=== PATIENT | female | born 1955 | race Caucasian/White ===

== ENCOUNTER 2020-12-30 07:14 | Day surgery (SDC) | payer OTHER ==
[2020-12-30] MEDS ORDERED: Ringers Lactate 1,000 ML IV ONE (07:35)
[2020-12-30] MEDS ORDERED: LIDOCAINE 1% MPF 30 ML VIAL ONE (07:52)
[2020-12-30] MEDS ORDERED: LIDOCAINE VISCOUS 2% SOLN 15 ML UDC ONE (07:52)
[2020-12-30] MEDS ORDERED: LIDOCAINE 1% MPF 5 ML VIAL ONE (08:11)
[2020-12-30] MEDS ORDERED: propofoL 200 MG/20 ML VIAL IV ONE ×2 (08:11→09:04)
[2020-12-30] MEDS ORDERED: NS 0.9% VIAL 0 ML ONE (08:11)
[2020-12-30] MEDS ORDERED: Phenylephrine HCl 10 MG/ML 1 ML VIAL ONE ×2 (08:11→12:30)
[2020-12-30] MEDS ORDERED: FENTANYL CITR 100 MCG/2 ML ONE (08:31)
--- NOTE | 2020-12-30 08:47 | P.OP ---
Date of Service: 12/30/20 (Bronchoscopy with a right upper lobe transbronchial biopsies BAL and wire brushing) Findings and Operative Technique Patient is 65 years of age admitted with right upper lobe apical mass PET positive as a reason for bronchoscopy Narrative report after obtaining informed consent from the patient she premedicated by anesthesia Finding normal vocal cords normal trachea normal right right and left-sided bronchial anatomy slight thickening of the right upper lobe superior segmental bronchus no visible lesions Multiple procedures were performed as above patient tolerated the procedure very well did not experience any hemodynamic instability or significant hemoptysis chest x-ray has been ordered
--- NOTE | 2020-12-30 09:19 | RAD REPORT ---
EXAM DESCRIPTION: RAD - FLUORO-GUIDE FOR BRONCH UPT1HR - 12/30/2020 8:47 am FINDINGS: Three portable C-arm views were submitted from a fluoroscopic assisted bronchoscopy. Fluoro time was 287.9 seconds
--- NOTE | 2020-12-30 10:08 | RAD REPORT ---
EXAM DESCRIPTION: RAD - Chest Single View - 12/30/2020 9:50 am CLINICAL HISTORY: S/P BRONCHOSCOPY R/O PNEUMOTHORAX COMPARISON: None TECHNIQUE: AP portable chest image was obtained 12/30/2020 9:50 am . FINDINGS: Expiration film shows no pneumothorax. Patient has a known medial right apex mass with nancy rounding parenchymal opacification. The surrounding changes could be hemorrhage, edema, infiltrate or even alveolar extension of the tumor mass. Left lung field is clear. Heart and vasculature are ngozi l. No measurable pleural effusion and no pneumothorax. No acute bony abnormality seen. No acute aorti c findings suspected. IMPRESSION: No post bronchoscopy pneumothorax.
[2020-12-30] MEDS ORDERED: LIDOCAINE 4% TOP SOLUTION ONE (12:30)
[2020-12-30 13:05] VITALS: BP 154/64; TEMP 97.1; O2SAT 99
== END 2020-12-30 10:35 | disposition home or self-care (01) ==
LOC: OR 07:14
PROVIDERS: ATTEND Internal Medicine Sleep Medicine
PROC: 0B9C8ZX Drainage of Right Upper Lung Lobe, Via Natural or Artificial Opening Endoscopic, Diagnostic (ICD-10-PCS; 2020-12-30)
PROC: 0BDC8ZX Extraction of Right Upper Lung Lobe, Via Natural or Artificial Opening Endoscopic, Diagnostic (ICD-10-PCS; principal; 2020-12-30 08:00)
DX: R91.8 Other nonspecific abnormal finding of lung field (principal); Z20.822 Contact with and (suspected) exposure to COVID-19
CPT/HCPCS: 88108 ×2; 88305 ×2; 87015; 87206; 87116; 87102; 71045; 76000; 31623; 31628; 31624; U0002; J2704 ×2; J2370; J3010; J7120

== ENCOUNTER 2021-01-16 19:13 | Emergency (ER) | payer OTHER ==
--- OUTSIDE RECORDS SUMMARY | 2021-01-16 19:16 | XMS REPORT | Continuity of Care Document ---
:[address] [facility] [place], [place] t Address [address] [place] [address] Care Team Providers Name Role Phone RAMOS Attending Clinician Unavailable Problems Condition Condition Condition Status Onset Resolution Last Treating Co mments Source Name Details Category Date Date Treatment Clinician Date Hyperlipid Hyperlipid Problem Active 2019-0 [facility] em[facility] em[facility] 3-25 [facility] Hypertensi Hypertensi Problem Active 2019-0 [facility] [place] ve ve 3-15 da disorder Disorder 00:00: [facility] Vertigo Vertigo Problem Active 2019-0 [place] 3-15 da 00:[facility] Tobacco Tobacco Problem Active [place] dependence Dependence da syndrome Syndrome [facility] Acute Acute Problem Active [place] exacerbati Exacerbati da on of on of [facility] chronic Chronic al obstructiv Obstructiv He alth e airways e Airways Outr eac disease Disease h Program Pulmonary Pulmonary Problem Active [facility] emphysema Emphysema [facility] Near Near Problem Active [place] syncope Syncope [facility] Dizziness Dizziness Problem Active [facility] Lung mass Lung Mass Problem Active [facility] Allergies, Adverse Reactions, Alerts Allergy Allergy Status Severity Reaction(s) Onset Inactive Treating Comm ents Source Name Type Date Date Clinician Yoni Allergy Active Moderate Diarrhea [facility] hoseaqasim gacin to to severe da substanc [facility] Social History Smoking Status Start Date Stop Date Source Former Smoker [facility] Medications Ordered Filled Start Stop Current Ordering Indication Dosage Frequency Signature Comments Components Source Medication Medication Date Date Medication? Clinician (SIG) Name Name Bactrim DS Bactrim DS No 1 Q12H Bactrim DS [place] 800 mg-160 800 mg-160 800 mg-160 da mg tablet mg tablet mg tablet [facility] Take 1 Take 1 Take 1 al tablet tablet tablet Health every 12 every 12 every 12 Out reac hours by hours by hours by h oral route oral route oral route Program for 10 for 10 for 10 days. days. days. Diflucan Diflucan No 1 Diflucan [place] 150 mg 150 mg 150 mg da tablet Take tablet Take tablet [facility] 1 tablet 1 tablet Take 1 al every 72 every 72 tablet Healt h hours by hours by every 72 Out reac oral route. oral route. hours by h oral Program route. fluoxetine fluoxetine No 1 Q1D fluoxetine [place] 20 mg 20 mg 20 mg da tablet Take tablet Take tablet [facility] 1 tablet 1 tablet Take 1 al every day every day tablet Hea lth by oral by oral every day Outr eac route. route. by oral h route. Program fluticasone fluticasone No 2spray( Q1D fluticason [place] propionate propionate s) e da 50 50 propionate [facility] mcg/actuati mcg/actuati 50 a l on nasal on nasal mcg/actuat H ealth spray,suspe spray,suspe ion nasal Outreac nsion Jewett nsion Jewett spray,susp h 2 sprays 2 sprays ension Progr am every day every day Jewett 2 by by sprays intranasal intranasal every day route. route. by intranasal route. losartan 50 losartan 50 No 1 Q1D losartan [place] mg tablet mg tablet 50 mg da Take 1 Take 1 tablet [facility] tablet tablet Take 1 al every day every day tablet Hea lth by oral by oral every day Outr eac route. route. by oral h route. Program meclizine meclizine No 1 BID meclizine [place] 25 mg 25 mg 25 mg da tablet Take tablet Take tablet [facility] 1 tablet 1 tablet Take 1 al twice a day twice a day tablet Health by oral by oral twice a Outrea c route. route. day by h oral Program route. metoprolol metoprolol No metoprolol [place] tartrate 50 tartrate 50 tartrate da mg tablet mg tablet 50 mg Ep[facility] messenger copy TAKE 1 TAKE 1 tablet al TABLET BY TABLET BY TAKE 1 Hea lth MOUTH TWICE MOUTH TWICE TABLET BY Outreac DAILY DAILY MOUTH h TWICE Program DAILY ProAir HFA ProAir HFA No 2puff(s Q4H ProAir HFA [place] 90 90 ) 90 da mcg/actuati mcg/actuati mcg/actuat [facility] on aerosol on aerosol ion al inhaler inhaler aerosol Health Inhale 2 Inhale 2 inhaler Outr eac puffs every puffs every Inhale 2 h 4 hours by 4 hours by puffs Pr ogram inhalation inhalation every 4 route as route as hours by needed. needed. inhalation route as needed. Immunizations Ordered Immunization Filled Immunization Date Status Commen ts Source Name Name pneumococcal pneumococcal 2016-11-05 Completed [place] polysaccharide PPV23 polysaccharide PPV23 00:00:00 [facility] Vital Signs Vital Name Observation Time Observation Value Comments Source BP Diastolic 2020-04-15 00:00:00 92 [facility] Height 2020-04-15 00:00:00 63 [in_i] [facility] BMI (Body Mass 2020-04-15 00:00:00 36.1 kg/m2 [facility] Index) [facility] Outreach Program BP Systolic 2020-04-15 00:00:00 150 mm[facility]Hg[facility] Body Weight 2020-04-15 00:00:00 3264 [oz_av[facility] BP Diastolic 2020-04-07 00:00:00 96 mm[facility]Hg[facility] Height 2020-04-07 00:00:00 63 [in_i] [facility] BMI (Body Mass 2020-04-07 00:00:00 36.2 kg/m2 [place] [facility] Index) [facility] BP Systolic 2020-04-07 00:00:00 168 mm[Hg] [place] [facility] Body Weight 2020-04-07 00:00:00 3273.6 [oz_av] [place] [facility] BP Diastolic 2020-03-10 00:00:00 84 mm[Hg] [place] [facility] Height 2020-03-10 00:00:00 63 [in_i] [place] [facility] BMI (Body Mass 2020-03-10 00:00:00 36.6 kg/m2 [place] [facility] Index) [facility] BP Systolic 2020-03-10 00:00:00 186 mm[Hg] [place] [facility] Body Weight 2020-03-10 00:00:00 206.7 [lb_av] [place] [facility] BP Diastolic 2019-12-30 00:00:00 88 mm[Hg] [place] [facility] Height 2019-12-30 00:00:00 63 [in_i] [place] [facility] BMI (Body Mass 2019-12-30 00:00:00 37.5 kg/m2 [place] [facility]) [facility] BP Systolic 2019-12-30 00:00:00 160 mm[Hg] [place] [facility] Body Weight 2019-12-30 00:00:00 211.8 [lb_av] [place] [facility] Body Weight 2019-09-04 00:00:00 200.1 [lb_av] [place] [facility] BP Diastolic 2019-09-04 00:00:00 90 mm[Hg] [place] [facility] Height 2019-09-04 00:00:00 63 [in_i] [place] [facility] BMI (Body Mass 2019-09-04 00:00:00 35.4 kg/m2 [place] [facility]) [facility] BP Systolic 2019-09-04 00:00:00 160 mm[Hg] [place] [facility] BP Diastolic 2019-07-31 00:00:00 88 mm[Hg] [place] [facility] Height 2019-07-31 00:00:00 63 [in_i] [place] [facility] BMI (Body Mass 2019-07-31 00:00:00 34 kg/m2 [place] [facility] Index) [facility] BP Systolic 2019-07-31 00:00:00 152 mm[Hg] [place] [facility] Body Weight 2019-07-31 00:00:00 192 [lb_av] [place] [facility] BP Diastolic 2019-07-24 00:00:00 98 mm[Hg] [place] [facility] Height 2019-07-24 00:00:00 63 [in_i] [place] [facility] BMI (Body Mass 2019-07-24 00:00:00 33.8 kg/m2 [place] [facility] Index) [facility]reach [facility] BP Systolic 2019-07-24 00:00:00 170 mm[Hg] [place] [facility] Body Weight 2019-07-24 00:00:00 190.6 [lb_av] [place] [facility] Procedures Procedure Date / Time Performing Clinician Source Performed MAMMO, screening, 2020-04-07 00:00:00 [place] [facility] digital, bilateral Health Outrea ch Program ELECTROCARDIOGRAM, 2020-03-10 00:00:00 [place] [facility] COMPLETE [facility] Bilateral Tubal Ligation [place] [facility] Hysterectomy [place] [facility] Encounters Start End Encounter Admission Attending Care Care Encounter Source Date/Time Date/Time Type Type Clinicians Facility Department ID 2021-01-13 2021-01-13 Outpatient [facility] [id number] [place] 00:00:00 00:00:00 EDWARD [address] 2021-01-13 2021-01-13 Outpatient [facility] [id number] [place] 00:00:00 00:00:00 EDKUN [address] 2020-04-15 2020-04-15 [place] - [id number] [place] 00:00:00 00:00:00 Amalia Dela Cruz MEDICAL INSURANCE VERIFIER: [address] [facility] [address], [place], [place] Outre [phone] h , Ph. Program 2020-04-07 2020-04-07 Liliana [facility] [place] - [id number] [place] 00:00:00 00:00:00 Amalia Sampson MD: [address] [facility] [address] [place] Outre [address] h , Ph. Program 2020-03-10 2020-03-10 Liliana [facility] [place] - [id number] [place] 00:00:00 00:00:00 Amalia Sampson MD: [address] [facility] [address] [address] [place] [address] h , Ph. Program 2019-12-30 2019-12-30 Liliana [facility] [place] - [id number] [place] 00:00:00 00:00:00 Amalia Sampson MD: [id number] [facility] Epis messenger copy [address] [facility] [phone] , Ph. 2019-09-04 2019-09-04 Liliana [facility] [id number] [place] 00:00:00 00:00:00 Amalia Sampson MD: [id number] [facility] Epis messenger copy [place] [address] [facility] Program [id number] , Ph. 2019-07-31 2019-07-31 Liliana [facility] [place] - [id number] [place] 00:00:00 00:00:00 Amalia Sampson MD: [id number] [facility] messenger copy [address] [facility] [place] [place] [facility] [phone] , Ph. 2019-07-24 2019-07-24 Liliana [place] - [id number] M [place] 00:00:00 00:00:00 Amalia Sampson MD: [id number] [facility] Epis messenger copy [address] [facility], [place] Program [phone] , Ph. 2018-10-07 2018-10-07 [facility] [id number] Access 00:00:00 00:00:00 H, PROVIDER Pradip brown 2018-10-04 2018-10-04 [facility] [id number] Access 00:00:00 00:00:00 H, PROVIDER Pradip brown 2018-09-23 2018-09-23 [facility] [id number] Access 00:00:00 00:00:00 H, PROVIDER Pradip brown 2018-09-18 2018-09-18 [facility] [id number] Access 00:00:00 00:00:00 H, PROVIDER Pradip brown 2018-09-17 2018-09-17 [facility] [id number] Access 00:00:00 00:00:00 H, PROVIDER Pradip brown 2018-09-16 2018-09-16 [facility] [id number] Access 00:00:00 00:00:00 H, PROVIDER Pradip brown Results Test Description Test Time Test Comments Results Result Comments Source Bacteria identified in Urine by Culture 2020-04-10 00:00:00 Test Item Value Reference Range Interpretation Comme nts Bacteria identified in Urine by Culture (test code = klebsiella pne umoniae A 630-4) Other Antibiotic [Susceptibility] (test code = 33919-5) comment [facility] - Serum or [id number] 00:00:00 Test Item Value Reference Range Interpretation Comments Thyrotropin [Units/volume] in 2.100 uIU/mL 0.450-4.500 Serum or Plasma by Detection limit <= 0.005 mIU/L (test code = 69248-3) Thyroxine (T4) free 1.16 NG/dL 0.82-1.77 [Mass/volume] in Serum or Plasma (test code = 3024-7) [facility] - Serum or [id number] 00:00:00 Test Item Value Reference Range Interpretation Comments Glucose [Mass/volume] in Serum 100 mg/dL 65-99 H or Plasma (test code = 2345-7) Urea nitrogen [Mass/volume] in 16 mg/dL 8-27 Serum or Plasma (test code = 3094-0) Creatinine [Mass/volume] in 0.95 mg/dL 0.57-1.00 Serum or Plasma (test code = 2160-0) Glomerular filtration 63 mL/min/1.73 >59 rate/1.73 sq M.predicted among non-blacks [Volume Rate/Area] in Serum, Plasma or Blood by Creatinine-based formula (CKD-EPI) (test code = 04774-7) Glomerular filtration 73 mL/min/1.73 >59 rate/1.73 sq M.predicted among blacks [Volume Rate/Area] in Serum, Plasma or Blood by Creatinine-based formula (CKD-EPI) (test code = 29108-6) Urea nitrogen/Creatinine [Mass 17 12-28 Ratio] in Serum or Plasma (test code = 3097-3) Sodium [Moles/volume] in Serum 141 mmol/L 134-144 or Plasma (test code = 2951-2) Potassium [Moles/volume] in 4.7 mmol/L 3.5-5.2 Serum or Plasma (test code = 2823-3) Chloride [Moles/volume] in 99 mmol/L 96-106 Serum or Plasma (test code = 2075-0) Carbon dioxide, total 23 mmol/L 20-29 [Moles/volume] in Serum or Plasma (test code = 8-9) Calcium [Mass/volume] in Serum 9.6 mg/dL 8.7-10.3 or Plasma (test code = 69963-8) Protein [Mass/volume] in Serum 7.2 g/dL 6.0-8.5 or Plasma (test code = 2885-2) Albumin [Mass/volume] in Serum 4.6 g/dL 3.8-4.8 or Plasma (test code = 1751-7) Globulin [Mass/volume] in 2.6 g/dL 1.5-4.5 Serum by calculation (test code = 75796-0) Albumin/Globulin [Mass Ratio] 1.8 1.2-2.2 in Serum or Plasma (test code = 1759-0) Bilirubin.total [Mass/volume] 0.3 mg/dL 0.0-1.2 in Serum or Plasma (test code = 1975-2) Alkaline phosphatase 163 IU/L 39-117 H [Enzymatic activity/volume] in Serum or Plasma (test code = 6768-6) Aspartate aminotransferase 14 IU/L 0-40 [Enzymatic activity/volume] in Serum or Plasma (test code = 1920-8) Alanine aminotransferase 17 IU/L 0-32 [Enzymatic activity/volume] in Serum or Plasma (test code = 1742-6) [facility], [id number] 00:00:00 Test Item Value Reference Range Interpretation Comments Cholesterol [Mass/volume] in Serum 319 mg/dL 100-199 H or Plasma (test code = 2093-3) Triglyceride [Mass/volume] in Serum 507 mg/dL 0-149 H or Plasma (test code = 2571-8) Cholesterol in HDL [Mass/volume] in 37 mg/dL >39 L Serum or Plasma (test code = 2085-9) Cholesterol in VLDL [Mass/volume] comment 5-40 in Serum or Plasma by calculation (test code = 21564-0) Cholesterol in LDL [Mass/volume] in comment 0-99 Serum or Plasma by calculation (test code = 89737-9) Laboratory comment [Text] in Report recreational leader Narrative (test code = 65175-5) Cholesterol.total/Cholesterol.in 8.6 ratio 0.0-4.4 H HDL [Mass ratio] in Serum or Plasma (test code = 9830-1) Cholesterol in LDL/Cholesterol in tnp HDL [Mass Ratio] in Serum or Plasma (test code = 46580-2) [facility] A1c/Hemoglobin.total in [id number] 00:00:00 Test Item Value Reference Range Interpretation Comments Hemoglobin A1c/Hemoglobin.total in 5.9 % 4.8-5.6 H Blood (test code = 4548-4) [facility] panel, [id number] 00:00:00 Test Item Value Reference Range Interpretation Comments interpretation (test code = note interpretation) pdf image (test code = pdf image) . [facility] identified in Urine by [id number] 00:00:00 Test Item Value Reference Range Interpretation Comments Bacteria identified in klebsiella pneumoniae A Urine by Culture (test code = 630-4) Other Antibiotic comment [Susceptibility] (test code = 01921-6) [facility] [id number] 13:15:00 Test Item Value Reference Range Interpretation Comments Rate & Rhythm (test code = 61 sinus rhythm Rate & Rhythm) NE Interval (test code = NE 122 Interval) QRS Duration (test code = QRS 91 Duration) QT Interval (test code = QT 421 Interval) [facility] [id number] 13:15:00 Test Item Value Reference Range Interpretation Comments Rate & Rhythm (test code = 61 sinus rhythm Rate & Rhythm) NE Interval (test code = NE 122 Interval) QRS Duration (test code = QRS 91 Duration) QT Interval (test code = QT 421 Interval) [facility]hamUrinalysis macro (dipstick) panel - [id number] 12:55:00 Test Item Value Reference Range Interpretation Comments Leukocytes (test code = 3+ Leukocytes) Nitrite (test code = Nitrite) + Urobilinogen (test code = - Urobilinogen) Protein (test code = Protein) 1+ pH (test code = pH) 5.0 Blood (test code = Blood) +- Specific Kennett (test code = 1.030 Specific Kennett) Ketone (test code = Ketone) - Bilirubin (test code = Bilirubin) - Glucose (test code = Glucose) - Appearance (test code = cloudy Appearance) Color (test code = Color) dark yellow [facility] identified in Urine by [id number] 00:00:00 Test Item Value Reference Range Interpretation Comments culture, urine (test specimen number: A code = culture, [id number] urine) [facility]
[2021-01-16] MEDS ORDERED: ONDANSETRON 4 MG/2 ML VIAL ONE (19:50)
[2021-01-16] MEDS ORDERED: FENTANYL CITR 100 MCG/2 ML ONE (19:50)
[2021-01-16 20:01] LABS: Urine Bacteria >50 /HPF (<20); Urine RBC NONE SEEN /HPF (NONE SEEN)
[2021-01-16] MEDS ORDERED: KETOROLAC 30 MG/ML INJ ONE (20:02)
[2021-01-16 20:13] LABS: Urine Blood NEGATIVE (NEG); Urine Glucose NEGATIVE (NEG); Urine Protein NEGATIVE (NEG)
--- NOTE | 2021-01-16 20:51 | RAD REPORT ---
EXAM DESCRIPTION: CT - Abdomen Pelvis Wo Contrast - 01/16/2021 8:25 pm CLINICAL HISTORY: backpain COMPARISON: <Comparisons> TECHNIQUE: Axial [address] imaging of the abdomen and pelvis was performed without IV contrast. No IV contrast was given because of allergy, abnormal renal function, patient refusal or physician re quest. No oral contrast given. All CT scans are performed using dose optimization technique as appropriate and may include automated exposure control or mA/KV adjustment according to patient size. FINDINGS: No suspicious findings in the lung bases. The liver, spleen and pancreas show no suspicious findings on non-contrast imaging. Gallbladder and b iliary tree are also without suspicious finding. Gallstones can be occult on CT imaging No hydronephrosis or suspicious renal mass. Areas of cortical thinning are present possibly from isch emic or infectious remote injury. No significant adrenal finding. Isodense renal masses and pyeloneph ritis cannot be excluded in the absence of IV contrast. The urinary bladder is without significant fi nding. Uterus is absent. Left ovary is atrophic. A 3 centimeter right ovarian cyst is present. No fat or calcification component. No gastric dilatation or wall thickening. No acute small bowel finding. No appendicitis findings. Pro minent left-sided diverticulosis is present. No acute diverticulitis. Wall thickening in the sigmoid colon is probably from chronic diverticular disease. No adjacent inflammatory stranding. No free air, free fluid or inflammatory stranding. No hernia, mass or bulky lymphadenopathy. No acute compression fracture. Sclerotic changes are seen in the anterior superior T12 body. Degenera tive disc disease is present. Lower lumbar facet degenerative changes are present. IMPRESSION: Patient has prominent diverticulosis but no diverticulitis or acute GI process identifia ble. No acute finding. Scattered vertebral body, facet joint and disc degenerative change with no acute finding. Patient has a 3 centimeter ovarian or paraovarian cyst. No aggressive characteristics though cysts ar e not typical at this age. Follow-up pelvic sonography in 3-4 months could be performed to monitor fo r stability. Full assessment is limited is the absence of IV contrast.
--- NOTE | 2021-01-16 21:29 | EDPHYS ---
Physician Documentation [facility] Name: Porsha Fontana Age: 65 yrs Sex: Female : 1955 Arrival Date: 01/16/2021 Time: 19:16 Bed 2 Private MD: ED Physician Norris Mccain HPI: 01/16 22:57 This 65 yrs old Female presents to ER via EMS with complaints of Back Pain. tw4 22:57 The patient presents with pain that is acute, with no known mechanism of injury. The tw4 symptoms are located in the low back. Onset: The symptoms/episode began/occurred today. The pain does not radiate. Associated signs and symptoms: The patient has no apparent associated signs or symptoms. The problem was sustained when bending over. Modifying factors: The patient symptoms are alleviated by nothing, the patient symptoms are aggravated by bending, coughing, lifting, movement. Severity of symptoms: At their worst the symptoms were moderate, in the emergency department the symptoms are unchanged. The patient has not experienced similar symptoms in the past. Historical: - Allergies: 19:21 No Known Allergies; rv - PMHx: 19:21 Hypertension; LUNG CANCER; VERTIGO; rv - PSHx: 19:21 LUNG BIOPSY; Hysterectomy; rv - Immunization history:: Adult Immunizations up to date. - Social history:: Smoking status: Patient/guardian denies using tobacco, the patient reports quitting approximately 3 years ago. ROS: 22:57 Constitutional: Negative for fever, chills, and weight loss, Eyes: Negative for injury, tw4 pain, redness, and discharge, Cardiovascular: Negative for chest pain, palpitations, and edema, Respiratory: Negative for shortness of breath, cough, wheezing, and pleuritic chest pain, Abdomen/GI: Negative for abdominal pain, nausea, vomiting, diarrhea, and constipation. 22:57 MS/Extremity: Negative for injury and deformity, Skin: Negative for injury, rash, and discoloration, Neuro: Negative for headache, weakness, numbness, tingling, and seizure. 22:57 Back: Positive for injury or acute deformity, decreased range of motion, pain at rest, pain with movement, Negative for radiated pain. Exam: 22:57 Constitutional: This is a well developed, well nourished patient who is awake, alert, tw4 and in no acute distress. Head/Face: Normocephalic, atraumatic. Chest/axilla: Normal chest wall appearance and motion. Nontender with no deformity. No lesions are appreciated. Cardiovascular: Regular rate and rhythm with a normal S1 and S2. No gallops, murmurs, or rubs. Normal PMI, no JVD. No pulse deficits. Respiratory: Lungs have equal breath sounds bilaterally, clear to auscultation and percussion. No rales, rhonchi or wheezes noted. No increased work of breathing, no retractions or nasal flaring. 22:57 Abdomen/GI: Soft, non-tender, with normal bowel sounds. No distension or tympany. No guarding or rebound. No evidence of tenderness throughout. Back: No spinal tenderness. No costovertebral tenderness. Full range of motion. MS/ Extremity: Pulses equal, no cyanosis. Neurovascular intact. Full, normal range of motion. Neuro: Awake and alert, GCS 15, oriented to person, place, time, and situation. Cranial nerves II-XII grossly intact. Motor strength 5/5 in all extremities. Sensory grossly intact. Cerebellar exam normal. Normal gait. 22:57 Back: pain, that is moderate, ROM is painful, normal spinal alignment noted. Vital Signs: 19:18 BP 168 / 114; Pulse 82; Resp 18; Temp 98.8; Pulse Ox 96% on R/A; Weight 90.72 kg; rv Height 5 ft. 3 in. (160.02 cm); Pain 10/10; 20:36 BP 140 / 79; Pulse 69; Resp 16; Pulse Ox 94% on R/A; rv 21:30 BP 134 / 77; Pulse 65; Resp 16; Pulse Ox 94% on R/A; rv 19:18 Body Mass Index 35.43 (90.72 kg, 160.02 cm) rv MDM: 19:23 Patient medically screened. tw4 22:57 Data reviewed: vital signs, nurses notes. Data interpreted: Pulse oximetry: tw4 Interpretation: normal. Counseling: I had a detailed discussion with the patient and/or guardian regarding: the historical points, exam findings, and any diagnostic results supporting the discharge/admit diagnosis. Special discussion: I discussed with the patient/guardian in detail that at this point there is no indication for admission to the hospital. It is understood, however, that if the symptoms persist or worsen the patient needs to return immediately for re-evaluation. 01/16 19:24 Order name: Urine Microscopic Only 4 01/16 19:33 Order name: Urine Dipstick--Ancillary (enter results) mw2 01/16 20:01 Order name: Urine Microscopic Only; Complete Time: 21:05 EDMS 01/16 21:05 Interpretation: Normal except: UBACT >50; UWBC 5-10. 4 01/16 20:13 Order name: Urine Dipstick-Ancillary; Complete Time: 21:05 EDMS 01/16 20:38 Order name: Urine Culture [facility] 01/16 19:24 Order name: Urine Dipstick-Ancillary (obtain specimen); Complete Time: 19:37 [facility] 01/16 19:50 Order name: CT Abd/Pelvis - Without Contrast; Complete Time: 21:05 [facility] 01/16 21:06 Interpretation: No acute disease except. tw4 Administered Medications: 19:37 Drug: fentaNYL (PF) 50 mcg {Note: RASS 0.} Route: IVP; Site: right antecubital; rv 21:45 Follow up: Response: No adverse reaction; Pain is decreased; RASS: Alert and Calm (0) rv 19:37 Drug: Zofran (Ondansetron) 4 mg Route: IVP; Site: right antecubital; rv 21:45 Follow up: Response: No adverse reaction rv 19:47 Drug: TORadol - Ketorolac 15 mg Route: IVP; Site: right antecubital; jb4 20:15 Follow up: Response: No adverse reaction; Pain is decreased jb4 21:45 Drug: fentaNYL (PF) 25 mcg {Note: RASS 0.} Route: IVP; Site: right antecubital; rv 22:23 Follow up: Response: No adverse reaction; Pain is decreased; RASS: Alert and Calm (0) rv Disposition: 01/16/21 21:28 Discharged to Home. Impression: Sprain of ligaments of thoracic spine. - Condition is Stable. - Discharge Instructions: Thoracic Strain. - Prescriptions for Voltaren 1 % Topical gel - apply 2 gram by TOPICAL route 4 times per day; 1 Container. Cyclobenzaprine 10 mg Oral Tablet - take 1 tablet by ORAL route every 8 hours As needed; 30 tablet. Lidoderm 5 % Topical adhesive patch,medicated - apply 1 patch by TRANSDERMAL route once daily; 1 box. - Medication Reconciliation Form, Thank You Letter, Antibiotic Education, Prescription Opioid Use form. - Follow up: Private Physician; When: Upon discharge from the Emergency Department; Reason: Recheck today's complaints, Continuance of care, Re-evaluation by your physician. - Problem is new. - Symptoms have improved. Signatures: Dispatcher [employer] EDMS Guanaco Contreras, RN RN jb4 Norris Mccain MD MD tw4 Johnny Carolina mw2 Adithya Burnette RN RN rv Corrections: (The following items were deleted from the chart) 21:50 21:28 01/16/2021 21:28 Discharged to Home. Impression: Sprain of ligaments of thoracic mw2 spine. Condition is Stable. Forms are Medication Reconciliation Form, Thank You Letter, Antibiotic Education, Prescription Opioid Use. Follow up: Private Physician; When: Upon discharge from the Emergency Department; Reason: Recheck today's complaints, Continuance of care, Re-evaluation by your physician. Problem is new. Symptoms have improved. tw4 22:24 21:50 01/16/2021 21:28 Discharged to Home. Impression: Sprain of ligaments of thoracic rv spine. Condition is Stable. Discharge Instructions: Thoracic Strain. Prescriptions for Voltaren 1 % Topical gel - apply 2 gram by TOPICAL route 4 times per day; 1 Container, Cyclobenzaprine 10 mg Oral Tablet - take 1 tablet by ORAL route every 8 hours As needed; 30 tablet, Lidoderm 5 % Topical adhesive patch,medicated - apply 1 patch by TRANSDERMAL route once daily; 1 box. and Forms are Medication Reconciliation Form, Thank You Letter, Antibiotic Education, Prescription Opioid Use. Follow up: Private Physician; When: Upon discharge from the Emergency Department; Reason: Recheck today's complaints, Continuance of care, Re-evaluation by your physician. Problem is new. Symptoms have improved. mw2
--- NOTE | 2021-01-16 21:29 | ER ---
Nurse's Notes [facility] Name: Porsha Fontana Age: 65 yrs Sex: Female : 1955 Arrival Date: 01/16/2021 Time: 19:16 Bed 2 Private MD: Diagnosis: Sprain of ligaments of thoracic spine Presentation: 01/16 19:18 Chief complaint: EMS states: SUDDEN ONSET OF SHARP PAIN AT THE BACK AREA, 1.5 HOURS rv AGO, COMPARING PAIN TO A BROKEN BONE. DENIES INJURY. NO SOB. COMPLAINING OF MILD NAUSEA. WITH HISTORY OF LUNG CANCER, UNDER THE CARE OF DR TYSON. Coronavirus screen: Client denies travel out of the [place] in the last 14 days. Ebola Screen: No symptoms or risks identified at this time. Initial Sepsis Screen: Does the patient meet any 2 criteria? No. Patient's initial sepsis screen is negative. Does the patient have a suspected source of infection? No. Patient's initial sepsis screen is negative. Risk Assessment: Do you want to hurt yourself or someone else? Patient reports no desire to harm self or others. Onset of symptoms was January 16, 2021 at 17:30. 19:18 Method Of Arrival: EMS: [facility] rv 19:18 Acuity: JEF 3 rv Triage Assessment: 19:21 General: Appears uncomfortable, Behavior is calm, cooperative. Pain: Complains of pain rv in back Pain currently is 10 out of 10 on a pain scale. Quality of pain is described as sharp, Pain began suddenly, 1 hour ago. EENT: No signs and/or symptoms were reported regarding the EENT system. Neuro: Level of Consciousness is awake, alert, obeys commands, Oriented to person, place, time, situation. Cardiovascular: Patient's skin is warm and dry. Respiratory: Airway is patent Respiratory effort is even, unlabored. GI: Reports nausea. Derm: Skin is intact. Musculoskeletal: Circulation, motion, and sensation intact. Swelling absent. Historical: - Allergies: 19:21 No Known Allergies; rv - PMHx: 19:21 Hypertension; LUNG CANCER; VERTIGO; rv - PSHx: 19:21 LUNG BIOPSY; Hysterectomy; rv - Immunization history:: Adult Immunizations up to date. - Social history:: Smoking status: Patient/guardian denies using tobacco, the patient reports quitting approximately 3 years ago. Screenin:22 Abuse screen: Denies threats or abuse. Denies injuries from another. Nutritional rv screening: No deficits noted. Tuberculosis screening: No symptoms or risk factors identified. Fall Risk None identified. Assessment: 20:36 Reassessment: PATIENT IS BACK FROM CT SCAN. rv 21:45 Reassessment: DR WOODRUFF TALKED TO THE PATIENT AND EXPLAINED THE CT SCAN REPORT. Neuro: rv Level of Consciousness is awake, alert, obeys commands, Oriented to person, place, time, situation. Vital Signs: 19:18 BP 168 / 114; Pulse 82; Resp 18; Temp 98.8; Pulse Ox 96% on R/A; Weight 90.72 kg; rv Height 5 ft. 3 in. (160.02 cm); Pain 10/10; 20:36 BP 140 / 79; Pulse 69; Resp 16; Pulse Ox 94% on R/A; rv 21:30 BP 134 / 77; Pulse 65; Resp 16; Pulse Ox 94% on R/A; rv 19:18 Body Mass Index 35.43 (90.72 kg, 160.02 cm) rv ED Course: 19:16 Patient arrived in ED. cl3 19:17 Adithya Burnette, RN is Primary Nurse. rv 19:20 Triage completed. rv 19:22 Arm band placed on right wrist. Patient placed in the treatment room, on a stretcher, rv Patient notified of wait time. 19:23 Norris Woodruff MD is Attending Physician. tw4 19:23 Patient has correct armband on for positive identification. Pulse ox on. NIBP on. rv 19:30 Inserted saline lock: 20 gauge in right antecubital area, using aseptic technique. rv Blood collected. 19:30 Initial lab(s) drawn, by me, sent to lab. rv 20:38 CT Abd/Pelvis - Without Contrast In Process Unspecified. EDMS 21:46 No provider procedures requiring assistance completed. IV discontinued, intact, rv bleeding controlled, No redness/swelling at site. Pressure dressing applied. Administered Medications: 19:37 Drug: fentaNYL (PF) 50 mcg {Note: RASS 0.} Route: IVP; Site: right antecubital; rv 21:45 Follow up: Response: No adverse reaction; Pain is decreased; RASS: Alert and Calm (0) rv 19:37 Drug: Zofran (Ondansetron) 4 mg Route: IVP; Site: right antecubital; rv 21:45 Follow up: Response: No adverse reaction rv 19:47 Drug: TORadol - Ketorolac 15 mg Route: IVP; Site: right antecubital; jb4 20:15 Follow up: Response: No adverse reaction; Pain is decreased jb4 21:45 Drug: fentaNYL (PF) 25 mcg {Note: RASS 0.} Route: IVP; Site: right antecubital; rv 22:23 Follow up: Response: No adverse reaction; Pain is decreased; RASS: Alert and Calm (0) rv Outcome: 21:28 Discharge ordered by . tw4 21:46 Discharged to home ambulatory. rv 21:46 Condition: good 21:46 Discharge instructions given to patient, Instructed on discharge instructions, follow up and referral plans. medication usage, Demonstrated understanding of instructions, follow-up care, medications, Prescriptions given X 3. 21:50 Patient left the ED. mw2 22:24 Patient left the ED. rv Addendum: 01/20/2021 08:00 Addendum: Culture Results: Positive urine culture. Phone call Attempt #1 No answer. s s Left Certified letter sent to listed address for patient. Signatures: Dispatcher [employer] EDChristina Horowitz RN RN ss Bryson, James, RN RN jb4 Wadley, Terrence, MD MD 4 Johnny Carolina mw2 Adithya Burnette RN RN Rsos Tsang cl3 Corrections: (The following items were deleted from the chart) 01/16 20:37 20:36 BP 140 / 97; Pulse 69bpm; Resp 16bpm; Pulse Ox 92% RA; rv rv 20:52 20:36 BP 140 / 97; Pulse 69bpm; Resp 16bpm; Pulse Ox 94% RA; rv rv
[2021-01-17 17:36] VITALS: TEMP 98.8
[2021-01-17 17:37] VITALS: O2SAT 94
[2021-01-17 17:38] VITALS: BP 134/77
== END 2021-01-16 22:24 | disposition home or self-care (01) ==
LOC: ER 19:13
DX: S23.3XXA Sprain of ligaments of thoracic spine, initial encounter (principal); I10 Essential (primary) hypertension; Z85.118 Personal history of other malignant neoplasm of bronchus and lung
CPT/HCPCS: 87088; 87086; 74176; J3010; J2405; 81003; 81015; 87077; 87186; 96374; 96375; 99284

== ENCOUNTER 2021-10-13 19:53 | Emergency (ER) | payer OTHER ==
--- OUTSIDE RECORDS SUMMARY | 2021-10-13 19:57 | XMS REPORT | Continuity of Care Document ---
:[address] [facility] t Address [address] [place] [address] Care Team Providers Name Role Phone RACHEL Attending Clinician Unavailable MD RACHEL Y.H. Attending Clinician Unavailable Lanie_dottie Attending Clinician Unavailable BRIAN Attending Clinician Unavailable [facility] Attending Clinician Unavailable Yenifer ELLIS Attending Clinician [phone] NILE Attending Clinician [phone] RACHEL Admitting Clinician Unavailable MD RACHEL Y.H. Admitting Clinician Unavailable Lanie_dottie Admitting Clinician Unavailable ADRIÁN_LILIANA Admitting Clinician Unavailable Payers Payer Name Policy Type Policy Number Effective Date Expiration Date S ource Problems Condition Condition Condition Status Onset Resolution Last Treating Co mments Source Name Details Category Date Date Treatment Clinician Date Hyperlipid Hyperlipid Problem Active 0 [place] em[place] emia 3-25 da [facility] Hypertensi Hypertensi Problem Active 0 [place] ve ve 3-15 da disorder Disorder 00:00: [facility] Vertigo Vertigo Problem Active [place] 3-15 da 00:[facility]: [facility] [...] Active [place] emphysema Emphysema [facility] Near Near Problem Active [place] syncope Syncope [facility] Dizziness Dizziness Problem Active [place] [facility] Lung mass Lung Mass Problem Active [place] [facility] Allergies, Adverse Reactions, Alerts Allergy Allergy Status Severity Reaction(s) Onset Inactive Treating Comm ents Source Name Type Date Date Clinician Yoni Allergy Active Moderate Diarrhea [place] xacin to to severe da substanc [facility] Social History Social Habit Start Date Stop Date Quantity Comments Source Sex Assigned At Female [facility] Smoking Status Start Date Stop Date Source Unknown if ever smoked [facility] Former Smoker [place] [facility] Medications Ordered Filled Start Stop Current Ordering Indication Dosage Frequency Signature Comments Components Source Medication Medication Date Date Medication? Clinician (SIG) Name Name lovastatin 2017-11 No take 1 [facility] 20 mg 1-19 tablet (20 Health tablet 00:00: mg) by 00 oral route once daily with the evening meal ranitidine 2017-11 No take 1 [facility] 150 mg 1-14 tablet Health tablet 00:00: (150 mg) 00 by oral route once daily at bedtime aspirin 325 2017-11 No take 1 [facility] mg tablet 1-14 tablet Health 00:00: (325 mg) 00 by oral route once daily Calcium 600 2017-11 No 1 Tablet A ccess + D(3) 600 1-13 by Oral Health mg-125 unit 00:00: route 1 tablet 00 time per day metoprolol 2017-11 No take 1 [facility] tartrate 50 1-12 tablet (50 He alth mg tablet 00:00: mg) by 00 oral route 2 times per day with meals amlodipine 2017-11 No take 1 [facility] 10 mg 1-12 tablet (10 Health tablet 00:00: mg) by 00 oral route once daily Lexapro 10 2017-11 No take 1 [facility] mg tablet 1-12 tablet ( 00:00: mg) by 00 oral route once daily Bactrim DS Bactrim DS No 1 Q12H [...] ealth spray,suspe spray,suspe ion nasal Outreac nsion Stevenson nsion Stevenson spray,susp h 2 sprays 2 sprays ension Progr am every day every day Stevenson 2 by by sprays intranasal intranasal every [...] mg tablet mg tablet 50 mg 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 TAKE 1 TAKE 1 tablet al TABLET [...] Source Name Name pneumococcal pneumococcal 2016-11-05 Completed [place] polysaccharide PPV23 polysaccharide PPV23 00:00:00 [facility] Vital Signs Vital Name Observation Time Observation Value Comments Source BP Diastolic 2020-04-15 00:00:00 92 mm[Hg] [place] [facility] Height 2020-04-15 00:00:00 63 [in_i] [place] [facility] BMI (Body Mass Index) 2020-04-15 00:00:00 36.1 kg/m2 [place] [facility] BP Systolic 2020-04-15 00:00:00 150 mm[Hg] [place] [facility] Body Weight 2020-04-15 00:00:00 3264 [oz_av] [place] [facility] BP Diastolic 2020-04-07 00:00:00 96 mm[Hg] [place] [facility] Height 2020-04-07 00:00:00 63 [in_i] [place] [facility] BMI (Body Mass Index) 2020-04-07 00:00:00 36.2 kg/m2 [place] [facility] BP Systolic 2020-04-07 00:00:00 168 mm[Hg] [place] [facility] Body Weight 2020-04-07 00:00:00 3273.6 [oz_av] [place]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 [facility] BP Diastolic 2020-03-10 00:00:00 84 mm[Hg] [place] [facility] Height 2020-03-10 00:00:00 63 [in_i] [place] [facility] BMI (Body Mass Index) 2020-03-10 00:00:00 36.6 kg/m2 [place] [facility] BP Systolic 2020-03-10 00:00:00 186 mm[Hg] [place] [facility] Body Weight 2020-03-10 00:00:00 206.7 [lb_av] [place] [facility] BP Diastolic 2019-12-30 00:00:00 88 mm[Hg] [place] [facility] Height 2019-12-30 00:00:00 63 [in_i] [place] [facility] BMI (Body Mass Index) 2019-12-30 00:00:00 37.5 kg/m2 [place] [facility] BP Systolic 2019-12-30 00:00:00 160 mm[Hg] [place] [facility] Body Weight 2019-12-30 00:00:00 211.8 [lb_av] [place] [facility] BP Diastolic 2019-09-04 00:00:00 90 mm[Hg] [place] [facility] Height 2019-09-04 00:00:00 63 [in_i] [place] [facility] BMI (Body Mass Index) 2019-09-04 00:00:00 35.4 kg/m2 [place] [facility] BP Systolic 2019-09-04 00:00:00 160 mm[Hg] [place] [facility] Body Weight 2019-09-04 00:00:00 200.1 [lb_av] [place] [facility] BP Diastolic 2019-07-31 00:00:00 88 mm[Hg] [place] [facility] Height 2019-07-31 00:00:00 63 [in_i] [place] [facility] BMI (Body Mass Index) 2019-07-31 00:00:00 34 kg/m2 [place] [facility] BP Systolic 2019-07-31 00:00:00 152 mm[Hg] [place] [facility] Body Weight 2019-07-31 00:00:00 192 [lb_av] [place] [facility] BP Diastolic 2019-07-24 00:00:00 98 mm[Hg] [place] [facility] Height 2019-07-24 00:00:00 63 [in_i] [place] [facility] BMI (Body Mass Index) 2019-07-24 00:00:00 33.8 kg/m2 [place] [facility] BP Systolic 2019-07-24 00:00:00 170 mm[Hg] [place] [facility] Body Weight 2019-07-24 00:00:00 190.6 [lb_av] [place] [facility] Body height 2018-09-18 12:04:00 62.00 [in_us] [facility] Body Weight 2018-09-18 12:04:00 198.00 [lb_av] [facility] Systolic 2018-09-18 12:04:00 142 mm[Hg] [facility] 2018-09-18 12:04:00 72 mm[Hg] [facility] Diastolic Heart Beat 2018-09-18 12:04:00 77 /min [facility] Body Temperature 2018-09-18 12:04:00 97.00 [degF] [facility] Respiratory Rate 2018-09-18 12:04:00 20 /min [facility] Body mass index 2018-09-18 12:04:00 36.20 kg/m2 [facility] Body height 2018-09-16 10:34:00 62.50 [in_us] [facility] Patient Body Weight 2018-09-16 10:34:00 197.60 [lb_av] [facility]ravascular Systolic 2018-09-16 10:34:00 162 mm[Hg] [facility] Health Intravascular 2018-09-16 10:34:00 90 mm[Hg] [facility] Diastolic Heart Beat 2018-09-16 10:34:00 64 /min [facility] H ealth Body Temperature 2018-09-16 10:34:00 98.30 [degF] [facility] Respiratory Rate 2018-09-16 10:34:00 20 /min [facility] Body mass index 2018-09-16 10:34:00 35.60 kg/m2 [facility] [employer] Procedures Procedure Date / Time Performing Clinician Source Performed MAMMO, screening, 2020-04-07 00:00:00 [place] [facility] digital, bilateral Health Outrea ch Program ELECTROCARDIOGRAM, 2020-03-10 00:00:00 [place] [facility] COMPLETE [facility] Outreach Program Bilateral Tubal Ligation [place] [facility] Hysterectomy [place] [facility] Encounters Start End Encounter Admission Attending Care Care Encounter Source Date/Time Date/Time Type Type Clinicians Facility Department ID 2021-03-09 2021-03-10 Inpatient [facility] [id number] [place] 00:00:00 00:00:00 EDWARD [address] 2021-03-07 2021-03-07 Outpatient [facility] [id number] [place] 00:00:00 00:00:00 EDWARD [address] 2021-03-03 2021-03-03 Outpatient [facility] [id number] [place] 00:00:00 00:00:00 EDWARD [address] 2021-02-03 2021-02-03 Outpatient [facility] [id number] [place] 00:00:00 00:00:00 EDWARD [address] 2021-01-26 2021-01-26 Outpatient [facility] [id number] [place] 00:00:00 00:00:00 EDWARD [address] 2021-01-24 2021-01-24 Outpatient [facility] [id number] [place] 00:00:00 00:00:00 EDWARD [address] 2021-01-24 2021-01-24 Outpatient RAMOS, [facility] [id number] [place] 00:00:00 00:00:00 EDWARD [address] 2021-01-24 2021-01-24 Outpatient RAMOS, [facility] [id number] [place] 00:00:00 00:00:00 EDWARD [address] 2021-01-13 2021-01-13 Outpatient RAMOS, [facility] [id number] [place] 00:00:00 00:00:00 EDWARD [address] 2021-01-13 2021-01-13 Outpatient RAMOS, [facility] [id number] [place] 00:00:00 00:00:00 EDWARD [address] 2020-04-15 2020-04-15 Outpatient Obisesan_ad [facility] [id number] [place] 05:21:00 05:21:00 ekunbi [id number] [facility] 2020-04-15 2020-04-15 Adekunbi [facility] [place] - [id number] [place] 00:00:00 00:00:00 Amalia Dela Cruz [employer]OX 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 Program 2020-04-07 2020-04-07 Outpatient AMBREEN_YANNA [facility] [id number] [place] 11:07:00 11:07:00 CHRISTIAN [id number] [facility] 2020-04-07 2020-04-07 Liliana [facility] [place] - [id number] [place] 00:00:00 00:00:00 Amalia Sampson MD: 1700 [facility] [place] Outre [address] h , Ph. Program 2020-04-06 2020-04-06 Outpatient AMBREEN_FAR [facility] [id number] [place] 12:29:00 12:29:00 HANA [id number] [facility] 2020-03-10 2020-03-10 Outpatient AMBREEN_FAR [facility] [id number] [place] 03:22:00 03:22:00 HANA [id number] [facility] 2020-03-10 2020-03-10 [facility] [place] [facility] [id number] [place] 00:00:00 00:00:00 Amalia Sampson MD: 1700 [facility] Manzanares [facility] [address], [place] Outre [address] h , Ph. 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 [place] Program [phone] , Ph. 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 [place] Program [address] , Ph. 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 2018-10-07 2018-10-07 Outpatient [facility] [id number] Access 00:00:00 00:00:00 H, PROVIDER Pradip brown 2018-10-07 2018-10-07 Outpatient [facility] [id number] Access 00:00:00 00:00:00 H, PROVIDER [id number] Health [id number] 0f4 [id number] 2018-10-07 2018-10-07 Outpatient RHONDA, [facility] [id number] Access 00:00:00 00:00:[address] [id number] Health [id number] ee2 [id number] 2018-10-04 2018-10-04 Outpatient [facility] [id number] Access 00:00:00 00:00:00 H, PROVIDER Pradip brown 2018-10-04 2018-10-04 Outpatient [facility] [id number] Access 00:00:00 00:00:00 H, PROVIDER 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 d3-b Health [id number] 0f4 [id number] 2018-09-29 2018-09-29 Outpatient NILE, [facility] [id number] Access 00:00:00 00:00:00 LISA [id number] Health [id number] 2018-09-23 2018-09-23 Outpatient [facility] [id number] Access 00:00:00 00:00:00 H, PROVIDER Pradip brown 2018-09-23 2018-09-23 Outpatient [facility] [id number] Access 00:00:00 00:00:00 H, PROVIDER [id number] Health [id number] 0f4 [id number] 2018-09-23 2018-09-23 Outpatient DOWD, [facility] [id number] Access 00:00:00 00:00:00 LISA [id number] Health [id number] 0f4 [id number] 2018-09-23 2018-09-23 Outpatient DOWD, [facility] [id number] Access 00:00:00 00:00:00 LISA [id number] Health [id number] 2018-09-23 2018-09-23 Outpatient DOWD, [facility] [id number] Access 00:00:00 00:00:00 LISA [id number] Health [id number] ee2 [id number] 2018-09-18 2018-09-18 Outpatient DOWD, [facility] [id number] Access 12:04:00 12:04:00 LISA [id number] Health [id number] ee2 [id number] 2018-09-18 2018-09-18 Outpatient [facility] [id number] Access 00:00:00 00:00:00 H, PROVIDER Pradip brown 2018-09-18 2018-09-18 Outpatient [facility] [id number] Access 00:00:00 00:00:00 H, PROVIDER [id number] Health [id number] 0f4 [id number] 2018-09-18 2018-09-18 Outpatient DOWD, [facility] [id number] Access 00:00:00 00:00:00 LISA [id number] Health [id number] [id number] 2018-09-18 2018-09-18 Outpatient DOWD, [facility] [id number] Access 00:00:00 00:00:00 LISA [id number] Health [id number] 0f4 [id number] 2018-09-17 2018-09-17 Outpatient [facility] [id number] Access 00:00:00 00:00:00 H, PROVIDER He alth 2018-09-17 2018-09-17 Outpatient [facility] [id number] Access 00:00:00 00:00:00 H, PROVIDER [id number]-[id number] Health [id number] 0f4 [id number] 2018-09-17 2018-09-17 Outpatient DOWD, [facility] [id number] Access 00:00:00 00:00:00 LISA [id number] Health [id number] ee2 [id number] 2018-09-17 2018-09-17 Outpatient DOWD, [facility] [id number] Access 00:00:00 00:00:00 FOSTER [id number] Health [id number] 0f4 [id number] 2018-09-16 2018-09-16 Outpatient NILE, [facility] [id number] Access 10:34:00 10:34:00 LISA [id number] [facility] [id number] ee2 [id number] 2018-09-16 2018-09-16 Outpatient [facility] [id number] Access 00:00:00 00:00:00 H, PROVIDER Pradip brown 2018-09-16 2018-09-16 Outpatient [facility] [id number] Access 00:00:00 00:00:00 H, PROVIDER [id number] Health [id number] 0f4 [id number] 2018-09-16 2018-09-16 Outpatient NILE, [facility] [id number] Access 00:00:00 00:00:00 LISA [id number] [facility] [id number] 0f4 [id number] Results Test Description Test Time Test Comments Results Result Comments Source SARS-CoV-2 (COVID-19) RNA [Presence] in Respiratory sp ecimen by 2021-03-07 18:13:31 MANDEEP with probe detection Test Item Value Reference Range Interpretation Comme nts SARS-CoV-2 (COVID-19) RNA [Presence] in Respiratory Not detected No t-Detected specimen by MANDEEP with probe detection (test code = 27126-8) Whether patient is employed in a healthcare setting (test code = 43482-9) Whether the patient has symptoms related to condition of interest (test code = 77137-7) Patient was hospitalized because of this condition (test code = 99212-9) Whether the patient was admitted to intensive care unit (ICU) for condition of interest (test code = 47320-4) Whether patient resides in a congregate care setting (test code = 60266-8) SARS-CoV-2 (COVID-19) RNA [Presence] in Respiratory specimen by MANDEEP with probe [id number] 14:20:13 Test Item Value Reference Range Interpretation Comments SARS-CoV-2 (COVID-19) RNA Not detected Not-Detected [Presence] in Respiratory specimen by MANDEEP with probe detection (test code = 13947-4) Bacteria identified in Urine by [id number] 00:00:00 Test Item Value Reference Range Interpretation Comments Bacteria identified in klebsiella pneumoniae A Urine by Culture (test code = 630-4) Other Antibiotic comment [Susceptibility] (test code = 29635-6) [facility] Serum or [id number] 00:00:00 Test Item Value Reference Range Interpretation Comments Thyrotropin [Units/volume] in 2.100 uIU/mL 0.450-4.500 Serum or Plasma by Detection limit <= 0.005 mIU/L (test code = 85980-9) Thyroxine (T4) free 1.16 NG/dL 0.82-1.77 [Mass/volume] in Serum or Plasma (test code = 3024-7) [facility] 2000 [facility] - Serum or [id number] 00:00:00 Test Item Value Reference Range Interpretation [...] by Creatinine-based formula (CKD-EPI) (test code = 94945-6) Glomerular filtration 73 mL/min/1.73 >59 rate/1.73 sq M.predicted among blacks [Volume Rate/Area] in Serum, Plasma or Blood by Creatinine-based formula (CKD-EPI) (test code = 48657-7) Urea nitrogen/Creatinine [Mass 17 12-28 Ratio] in Serum or Plasma (test code = 3097-3) Sodium [Moles/volume] in Serum 141 mmol/L 134-144 or Plasma (test code = 2951-2) Potassium [Moles/volume] in 4.7 mmol/L 3.5-5.2 Serum or Plasma (test code = 2823-3) Chloride [Moles/volume] in 99 mmol/L 96-106 Serum or Plasma (test code = 5-0) Carbon dioxide, total 23 mmol/L 20-29 [Moles/volume] in Serum or Plasma (test code = 2027-9) Calcium [Mass/volume] in Serum 9.6 mg/dL 8.7-10.3 or Plasma (test code = 76256-3) Protein [Mass/volume] in Serum 7.2 g/dL 6.0-8.5 or Plasma (test code = 2885-2) Albumin [Mass/volume] in Serum 4.6 g/dL 3.8-4.8 or Plasma (test code = 1751-7) Globulin [Mass/volume] in 2.6 g/dL 1.5-4.5 Serum by calculation (test code = 39133-7) Albumin/Globulin [Mass Ratio] 1.8 1.2-2.2 in Serum or Plasma (test code = 1759-0) Bilirubin.total [Mass/volume] 0.3 mg/dL 0.0-1.2 in Serum or Plasma (test code = 1974-2) Alkaline phosphatase 163 IU/L 39-117 H [Enzymatic activity/volume] in Serum or Plasma (test code = 6768-6) Aspartate aminotransferase 14 IU/L 0-40 [Enzymatic activity/volume] in Serum or Plasma (test code = 1920-8) Alanine aminotransferase 17 IU/L 0-32 [Enzymatic activity/volume] in Serum or Plasma (test code = 1742-6) [facility], [id number] 00:00:00 Test Item Value Reference Range Interpretation Comments Cholesterol [Mass/volume] in Serum 319 mg/dL 100-199 H or Plasma (test code = 2092-3) Triglyceride [Mass/volume] in Serum 507 mg/dL 0-149 H or Plasma (test code = 2571-8) Cholesterol in HDL [Mass/volume] in 37 mg/dL >39 L Serum or Plasma (test code = 2084-9) Cholesterol in VLDL [Mass/volume] comment 5-40 in Serum or Plasma by calculation (test code = 02741-9) Cholesterol in LDL [Mass/volume] in comment 0-99 Serum or Plasma by calculation (test code = 36825-4) Laboratory comment [Text] 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 Narrative (test code = 05725-0) Cholesterol.total/Cholesterol.in 8.6 ratio 0.0-4.4 H HDL [Mass ratio] in Serum or Plasma (test code = 9830-1) Cholesterol in LDL/Cholesterol in tnp HDL [Mass Ratio] in Serum or Plasma (test code = 60455-5) [facility]/Hemoglobin.total in [id number] 00:00:00 Test Item Value Reference Range Interpretation Comments Hemoglobin A1c/Hemoglobin.total in 5.9 % 4.8-5.6 H Blood (test code = 4548-4) [facility], [id number] 00:00:00 Test Item Value Reference Range Interpretation Comments interpretation (test code = note interpretation) pdf image (test code = pdf image) . [facility] identified in Urine by [id number] 00:00:00 Test Item Value Reference Range Interpretation Comments Bacteria identified in klebsiella pneumoniae A Urine by Culture (test code = 630-4) Other Antibiotic comment [Susceptibility] (test code = 34895-7) [facility] [id number] 13:15:00 Test Item Value Reference Range Interpretation Comments Rate & Rhythm (test code = 61 sinus rhythm Rate & Rhythm) HI Interval (test code = HI 122 Interval) QRS Duration (test code = QRS 91 Duration) QT Interval (test code = QT 421 Interval) [facility] [id number] 13:15:00 Test Item Value Reference Range Interpretation Comments Rate & Rhythm (test code = 61 sinus rhythm Rate & Rhythm) HI Interval (test code = HI 122 Interval) QRS Duration (test code = QRS 91 Duration) QT Interval (test code = QT 421 Interval) [facility] CenterUrinalysis macro (dipstick) panel - [id number] 12:55:00 Test Item Value Reference Range Interpretation Comments Leukocytes (test code = 3+ Leukocytes) Nitrite (test code = Nitrite) + Urobilinogen (test code = - Urobilinogen) Protein (test code = Protein) 1+ pH (test code = pH) 5.0 Blood (test code = Blood) +- Specific [place] (test code = 1.030 Specific [place]) Ketone (test code = Ketone) - Bilirubin (test code = Bilirubin) - Glucose (test code = Glucose) - Appearance (test code = cloudy Appearance) Color (test code = Color) dark yellow [facility] Center[facility] identified in Urine by [id number] 00:00:00 Test Item Value Reference Range Interpretation Comments culture, urine (test specimen number: A code = culture, [id number] urine) [facility]
[2021-10-13 20:46] LABS: Urine Blood Trace-lysed (Negative); Urine Glucose Negative (Negative); Urine Protein Negative (Negative); Urine Specific Gravity <=1.005 (1.005-1.030); Urine pH 5.5 (5.0-7.0)
[2021-10-13 20:54] LABS: Protime INR 0.95
[2021-10-13 20:58] LABS: Absolute Lymphocytes (CBC) 1.6 K/uL (0.7-4.9); Basophils % 1.3 % (0-1.3); Hematocrit 41.4 % (36.0-45.0); Lymphocytes % 20.8 % (15.3-44.8); MPV 10.8 fL (7.6-11.3); RBC Red Blood Cell Count 4.75 M/uL (3.86-4.86)
[2021-10-13 21:04] LABS: Urine Bacteria 20-50 /HPF (<20); Urine Yeast FEW (NONE SEEN)
--- NOTE | 2021-10-13 21:14 | RAD REPORT ---
EXAM DESCRIPTION: RAD - Chest Single View - 10/13/2021 8:46 pm CLINICAL HISTORY: HTN COMPARISON: December 2020 TECHNIQUE: AP portable chest image was obtained 10/13/2021 8:46 pm . FINDINGS: Lung volumes are low. Interstitial lung markings are prominent throughout both lung malagon accentuated by the shallow inspiration. Superimposed interstitial edema or infiltrate are both possi ble. Focal consolidation of the upper right lung field seen on prior imaging is no longer present. He art and vasculature are normal. No measurable pleural effusion and no pneumothorax. No acute bony abn ormality seen. No acute aortic findings suspected. IMPRESSION: Diffusely prominent interstitial lung pattern with no focal mass or consolidation. Patient has chronic interstitial opacification. Current finding may represent superimposed interstiti al edema or infiltrate.
[2021-10-13 21:16] LABS: ALT/SGPT 24 U/L (12-78); Albumin 3.6 g/dL (3.4-5.0); Alkaline Phosphatase 183 U/L (45-117); BUN Blood Urea Nitrogen 20 mg/dL (7-18); Bicarbonate 25 mmol/L (21-32); Bilirubin Direct < 0.1 mg/dL (0-0.2); Bilirubin Total 0.3 mg/dL (0.2-1.0); Glucose Level 125 mg/dL (74-106); NT PRO-BNP 230 pg/mL (<125); Protein, Total 7.8 g/dL (6.4-8.2); Sodium Level 139 mmol/L (136-145); Troponin (Emerg Dept Use Only) < 0.02 ng/mL (0.0-0.045)
[2021-10-13 21:19] LABS: AST/SGOT 16 U/L (15-37); Magnesium 2.3 mg/dL (1.8-2.4); Potassium 4.5 mmol/L (3.5-5.1)
--- NOTE | 2021-10-13 21:26 | RAD REPORT ---
EXAM DESCRIPTION: CT - Head Brain Wo Cont - 10/13/2021 9:15 pm CLINICAL HISTORY: uncontrolled HTN, dizziness COMPARISON: No comparisons TECHNIQUE: Axial 5 mm thick images of the head were obtained without IV contrast. All CT scans are performed using dose optimization technique as appropriate and may include automated exposure control or mA/KV adjustment according to patient size. FINDINGS: No intracranial hemorrhage, mass, edema or shift of mid-line structures. No acute infarcti on changes seen. No abnormal extra-axial fluid collections. Ventricles are normal. Mastoid air cells are clear. Air-fluid level present in the left maxillary sinus. No acute bony findings. IMPRESSION: No intracranial abnormality. Left maxillary sinusitis
--- NOTE | 2021-10-13 23:38 | ER ---
Nurse's Notes [facility] Name: Porsha Fontana Age: 66 yrs Sex: Female : 1955 Arrival Date: 10/13/2021 Time: 19:54 Bed 5 Private MD: Diagnosis: Dizziness and giddiness;UTI/ Urinary tract infection, site not specified;Essential (primary) hypertension Presentation: 10/13 20:08 Chief complaint: Patient states: lite headed. Coronavirus screen: Vaccine status: da3 Patient reports being unvaccinated. Ebola Screen: No symptoms or risks identified at this time. Initial Sepsis Screen: Does the patient meet any 2 criteria? No. Patient's initial sepsis screen is negative. Risk Assessment: Do you want to hurt yourself or someone else? Patient reports no desire to harm self or others. Onset of symptoms was October 12, 2021 at 12:00. 20:08 Method Of Arrival: Ambulatory da3 20:08 Acuity: JEF 3 da3 20:37 Initial Sepsis Screen: Does the patient have a suspected source of infection? No. as6 Patient's initial sepsis screen is negative. Triage Assessment: 20:13 General: Appears in no apparent distress. comfortable, Behavior is calm, cooperative. da3 Pain: Denies pain. Historical: - Allergies: 20:45 No Known Allergies; as6 - Home Meds: 20:45 metoprolol tartrate 50 mg Oral tab 1 tab once daily [Active]; alprazolam 0.5 mg Oral as6 tab 1 tab as needed for anxiety [Active]; meclizine 25 mg Oral tab 1 tab 2 times per day [Active]; albuterol sulfate 90 mcg/actuation Inhl aebs 2 puffs as needed [Active]; Zofran 4 mg Oral tab 1 tab as needed [Active]; - PMHx: 20:45 Hypertension; Vertigo; Lung Cancer; Anxiety; as6 - PSHx: 20:45 right upper lube lung removal; as6 - Immunization history:: Client reports having NOT received the Covid vaccine. - Social history:: Smoking status: Patient/guardian denies using tobacco. - Family history:: not pertinent. - Hospitalizations: : No recent hospitalization is reported. Screenin:36 Abuse screen: Denies threats or abuse. Nutritional screening: No deficits noted. as6 Tuberculosis screening: No symptoms or risk factors identified. Fall Risk None identified. Assessment: 20:33 General: Appears uncomfortable, Behavior is cooperative, anxious. Pain: Denies pain. as6 Neuro: Level of Consciousness is awake, alert, obeys commands, Oriented to person, place, time, situation. Neuro: Reports weakness. Cardiovascular: Reports lightheadedness, Heart tones S1 S2 present Capillary refill < 3 seconds Patient's skin is warm and dry. Edema is absent. Respiratory: Airway is patent Trachea midline Respiratory effort is even, unlabored, Respiratory pattern is regular, symmetrical, Breath sounds are clear bilaterally. right upper lung lube removed. Derm: Skin is intact. 20:47 : Urine is cloudy. tw5 21:59 Reassessment: Patient appears in no apparent distress at this time. No changes from tw5 previously documented assessment. Patient and/or family updated on plan of care and expected duration. Pain level reassessed. Patient is alert, oriented x 3, equal unlabored respirations, skin warm/dry/pink. General: Reports " I am okay just tired". 23:50 Reassessment: Patient appears in no apparent distress at this time. No changes from tw5 previously documented assessment. Patient and/or family updated on plan of care and expected duration. Pain level reassessed. Vital Signs: 20:08 BP 205 / 117; Pulse 73; Resp 20; Temp 98.1; Pulse Ox 98% on R/A; Weight 90.72 kg; da3 Height 5 ft. 3 in. (160.02 cm); 21:59 BP 148 / 73; Pulse 63; Resp 20; Pulse Ox 100% on R/A; Pain 0/10; tw5 23:50 BP 157 / 80; Pulse 64; Resp 18; Pulse Ox 97% on R/A; Pain 5/10; tw5 10/14 00:14 BP 156 / 88; Pulse 57; Resp 18; Pulse Ox 98% on R/A; Pain 0/10; tw5 10/13 20:08 Body Mass Index 35.43 (90.72 kg, 160.02 cm) da3 ED Course: 10/13 19:54 Patient arrived in ED. wm 20:12 Triage completed. da3 20:13 Rian Vizcarra MD is Attending Physician. rn 20:17 [place], [place], RN is Primary Nurse. as6 20:36 Arm band placed on. as6 20:37 Placed in gown. Bed in low position. Call light in reach. Side rails up X2. Adult w/ as6 patient. sheriffs detective on. Pulse ox on. NIBP on. 20:38 Basic Metabolic Panel Sent. tw5 20:38 CBC with Diff Sent. tw 20:38 LFT's Sent. tw 20:38 Magnesium Sent. tw 20:38 NT PRO-BNP Sent. tw 20:39 Door closed. Moved to private room. Warm blanket given. Verbal reassurance given. tw5 Assisted to bathroom. 20:39 PT-INR Sent. tw 20:39 Troponin (emerg Dept Use Only) Sent. tw 20:39 Initial lab(s) drawn, by me, sent to lab. Urine collected: clean catch specimen. tw5 Inserted saline lock: 20 gauge in right wrist, using aseptic technique. Blood collected. 20:42 Urine Microscopic Only Sent. tw5 20:46 XRAY Chest (1 view) In Process Unspecified. EDMS 21:15 CT Head Brain wo Cont In Process Unspecified. EDMS 21:59 Assisted to bathroom. tw5 22:00 Urine Culture Sent. tw5 22:02 SARS-COV-2 RT PCR Sent. tw5 22:02 SARS-COV-2 RT PCR (Document "Date of Onset" if Symptomatic) Sent. tw5 22:02 COVID swab sent to lab. tw5 10/14 00:14 No provider procedures requiring assistance completed. IV discontinued, intact, tw5 bleeding controlled, No redness/swelling at site. Pressure dressing applied. Administered Medications: 10/13 23:50 Drug: Rocephin (cefTRIAXone) 1 grams Route: IV; Rate: calculated rate; Site: right tw5 wrist; 10/14 00:06 Follow up: Response: No adverse reaction; IV Status: Completed infusion; IV Intake: [id number] 00:15 Follow up: Response: No adverse reaction; IV Status: Completed infusion tw5 Intake: 00:06 IV: 50ml; Total: 50ml. as6 Outcome: 10/13 23:37 Discharge ordered by MD. gavin 23:48 Discharge ordered by MD. gavin 10/14 00:14 Discharged to home ambulatory. tw5 Condition: good Discharge instructions given to patient, family, Instructed on discharge instructions, follow up and referral plans. Demonstrated understanding of instructions, follow-up care, Prescriptions given X 1. 00:15 Patient left the ED. tw5 Addendum: 10/16/2021 07:41 Addendum: Culture Results: Positive urine culture. No further action required. Bacteria i w sensitive to prescribed antibiotic. Signatures: Dispatcher [employer] Elise Wells, ROMAINE GAVIN Rian Vizcarra MD MD rn Marsh, Wendy Shiv Claire RN RN da3 Wood, Tiffany tw5 Yeison Wallis RN RN as6
--- NOTE | 2021-10-13 23:38 | EDPHYS ---
Physician Documentation [facility] Name: Porsha Fontana Age: 66 yrs Sex: Female : 1955 Arrival Date: 10/13/2021 Time: 19:54 Bed 5 Private MD: ED Physician Rian Vizcarra HPI: 10/13 23:30 This 66 yrs old Female presents to ER via Ambulatory with complaints of Dizziness, High rn Blood Pressure. 23:30 The patient presents with dizziness, lightheadedness. Onset: The symptoms/episode rn began/occurred today. Modifying factors: The symptoms are alleviated by nothing, the symptoms are aggravated by nothing. Associated signs and symptoms: Pertinent positives: diaphoresis, headache, Pertinent negatives: abdominal pain, chest pain, seizure, shortness of breath, syncope. Severity of symptoms: At their worst the symptoms were moderate in the emergency department the symptoms have improved. The patient has not experienced similar symptoms in the past. The patient has not recently seen a physician. Patient reports was at [employer] standing, store felt hot, got flushed, diaphoretic and started fanning herself. [place] lightheaded and dizzy but denies any syncope. [place] a little bit better and went home. Happened again at rest. Denies any focal neurological problem. Denies any chest pain or shortness of breath. Denies any abdominal pain/nausea/vomiting/diarrhea. No new changes in medication. Took her blood pressure and was high so came in for evaluation. Took her blood pressure medication prior to coming in and blood pressure has since improved and she feels better. Reports increased urination and frequency and states always has a UTI. Historical: - Allergies: 20:45 No Known Allergies; as6 - Home Meds: 20:45 metoprolol tartrate 50 mg Oral tab 1 tab once daily [Active]; alprazolam 0.5 mg Oral as6 tab 1 tab as needed for anxiety [Active]; meclizine 25 mg Oral tab 1 tab 2 times per day [Active]; albuterol sulfate 90 mcg/actuation Inhl aebs 2 puffs as needed [Active]; Zofran 4 mg Oral tab 1 tab as needed [Active]; - PMHx: 20:45 Hypertension; Vertigo; Lung Cancer; Anxiety; as6 - PSHx: 20:45 right upper lube lung removal; as6 - Immunization history:: Client reports having NOT received the Covid vaccine. - Social history:: Smoking status: Patient/guardian denies using tobacco. - Family history:: not pertinent. - Hospitalizations: : No recent hospitalization is reported. ROS: 23:30 Constitutional: Negative for fever, chills, and weight loss, Eyes: Negative for injury, rn pain, redness, and discharge, Neck: Negative for injury, pain, and swelling, Cardiovascular: Negative for chest pain, palpitations, and edema, Respiratory: Negative for shortness of breath, cough, wheezing, and pleuritic chest pain, Abdomen/GI: Negative for abdominal pain, nausea, vomiting, diarrhea, and constipation, Back: Negative for injury and pain, MS/Extremity: Negative for injury and deformity, Skin: Negative for injury, rash, and discoloration, Neuro: Negative for weakness, numbness, tingling, and seizure. Exam: 23:30 Constitutional: This is a well developed, well nourished patient who is awake, alert, rn and in no acute distress. Head/Face: Normocephalic, atraumatic. Eyes: Periorbital areas with no swelling, redness, or edema. ENT: Dry mucous membrane Cardiovascular: Regular rate and rhythm. No pulse deficits. Respiratory: No increased work of breathing, no retractions or nasal flaring. Abdomen/GI: Soft, non-tender Skin: Warm, dry MS/ Extremity: Pulses equal, no cyanosis. Neuro: Awake and alert, GCS 15, oriented to person, place, time, and situation. Cranial nerves II-XII grossly intact. Motor strength 5/5 in all extremities. Sensory grossly intact. Cerebellar exam normal. Normal gait. Vital Signs: 20:08 BP 205 / 117; Pulse 73; Resp 20; Temp 98.1; Pulse Ox 98% on R/A; Weight 90.72 kg; da3 Height 5 ft. 3 in. (160.02 cm); 21:59 BP 148 / 73; Pulse 63; Resp 20; Pulse Ox 100% on R/A; Pain 0/10; tw5 23:50 BP 157 / 80; Pulse 64; Resp 18; Pulse Ox 97% on R/A; Pain 5/10; tw5 12/10 00:14 BP 156 / 88; Pulse 57; Resp 18; Pulse Ox 98% on R/A; Pain 0/10; tw5 10/13 20:08 Body Mass Index 35.43 (90.72 kg, 160.02 cm) da3 MDM: 10/13 20:14 Patient medically screened. rn 23:30 Differential diagnosis: cardiac arrhythmia, generalized weakness, hyperventilation, rn hypovolemia, idiopathic dizziness, near-syncope, TIA, vertigo, Patient feels much, ambulatory to bathroom, repeat neuro exam is normal. No acute findings and blood work/EKG/CT scan normal. Patient states this did not feel like her vertigo in the past. Will DC home with antibiotics for urinary tract infection and will follow up with PCP for further blood pressure management.. 23:30 Data reviewed: vital signs, nurses notes, lab test result(s), EKG, radiologic studies, rn CT scan, and as a result, I will discharge patient. Counseling: I had a detailed discussion with the patient and/or guardian regarding: the historical points, exam findings, and any diagnostic results supporting the discharge/admit diagnosis, the presence of at least one elevated blood pressure reading (>120/80) during this emergency department visit, radiology results, the need for outpatient follow up, to return to the emergency department if symptoms worsen or persist or if there are any questions or concerns that arise at home. Special discussion: I discussed with the patient/guardian in detail that at this point there is no indication for admission to the hospital. It is understood, however, that if the symptoms persist or worsen the patient needs to return immediately for re-evaluation. Based on the history and exam findings, there is no indication for further emergent testing or inpatient evaluation. I discussed with the patient/guardian the need to see the primary care provider for further evaluation of the symptoms. 10/13 20: Order name: Basic Metabolic Panel; Complete Time: :30 rn 10/13 20: Order name: CBC with Diff; Complete Time: :30 rn 10/13 20: Order name: LFT's; Complete Time: :30 rn 10/13 20: Order name: Magnesium; Complete Time: :30 rn 10/13 20: Order name: NT PRO-BNP; Complete Time: :30 rn 10/13 20: Order name: PT-INR; Complete Time: :30 rn 12/09 20:31 Order name: Troponin (emerg Dept Use Only); Complete Time: 21:30 rn 10/13 20:31 Order name: XRAY Chest (1 view); Complete Time: 21:30 rn 10/13 20:31 Order name: CT Head Brain wo Cont; Complete Time: 21:30 rn 10/13 20:31 Order name: Urine Microscopic Only; Complete Time: 21:30 rn 10/13 20:45 Order name: Urine Dipstick-Ancillary; Complete Time: 21:30 EDDE 10/13 21:05 Order name: Urine Culture EDDE 10/13 21:31 Order name: SARS-COV-2 RT PCR (Document "Date of Onset" if Symptomatic) rn 10/13 21:31 Order name: SARS-COV-2 RT PCR; Complete Time: 23:23 EDDE 10/13 20:31 Order name: EKG; Complete Time: 20:32 rn 10/13 20:31 Order name: Cardiac monitoring; Complete Time: 20:33 rn 10/13 20:31 Order name: EKG - Nurse/Tech; Complete Time: 20:37 rn 10/13 20:31 Order name: IV Saline Lock; Complete Time: 20:33 rn 10/13 20:31 Order name: Labs collected and sent; Complete Time: 20:37 rn 10/13 20:31 Order name: O2 Per Protocol; Complete Time: 20:33 rn 10/13 20:31 Order name: O2 Sat Monitoring; Complete Time: 20:33 rn 10/13 20:31 Order name: Urine Dipstick-Ancillary (obtain specimen); Complete Time: 20:42 rn Administered Medications: 23:50 Drug: Rocephin (cefTRIAXone) 1 grams Route: IV; Rate: calculated rate; Site: right tw5 wrist; 10/14 00:06 Follow up: Response: No adverse reaction; IV Status: Completed infusion; IV Intake: [id number] 00:15 Follow up: Response: No adverse reaction; IV Status: Completed infusion tw5 Disposition Summary: 10/13/21 23:48 Discharge Ordered Location: Home(10/13/21 23:48) rn Problem: new(10/13/21 23:48) rn Symptoms: have improved(10/13/21 23:48) rn Condition: Stable(10/13/21 23:48) rn Diagnosis - Dizziness and giddiness(10/13/21 23:48) rn - UTI/ Urinary tract infection, site not specified(10/13/21 23:48) rn - Essential (primary) hypertension(10/13/21 23:48) rn Followup: rn - With: Private Physician - When: As needed - Reason: Recheck today's complaints, Re-evaluation by your physician Discharge Instructions: - Discharge Summary Sheet rn - Dizziness rn - Urinary Tract Infection, Adult rn Forms: - Medication Reconciliation Form rn - Thank You Letter rn - Antibiotic supervisor [employer] - Prescription Opioid Use rn Prescriptions: - cefpodoxime 100 mg Oral Tablet - take 2 tablets by ORAL route every 12 hours for 10 days take with food; 40 rn tablet; Refills: 0, Product Selection Permitted Signatures: Dispatcher [employer] EDMS Rian Vizcarra MD MD rn Allan, David, RN RN jean3 Kimberly Fang 5 Yeison Wallis, RN RN as6 Corrections: (The following items were deleted from the chart) 10/13 23:45 23:37 Home rn [facility] 23:45 23:37 new rn 5 23:45 23:37 have improved rn 5 23:45 23:37 Stable rn 5 23:45 23:37 Dizziness and giddiness rn 5 23:45 23:37 UTI/ Urinary tract infection, site not specified rn [facility] 23:45 23:37 Essential (primary) hypertension rn [facility]
[2021-10-13] MEDS ORDERED: CEFTRIAXONE 1000 MG/VIAL ONE (23:46)
[2021-10-13] MEDS ORDERED: NA CHLORIDE 0.9% 50 ML ONE (23:46)
[2021-10-14 00:33] VITALS: TEMP 98.1
[2021-10-14 00:38] VITALS: BP 156/88; O2SAT 98
== END 2021-10-14 00:15 | disposition home or self-care (01) ==
LOC: ER 19:53
DX: N39.0 Urinary tract infection, site not specified (principal); I10 Essential (primary) hypertension; F41.9 Anxiety disorder, unspecified; Z20.822 Contact with and (suspected) exposure to COVID-19; Z85.118 Personal history of other malignant neoplasm of bronchus and lung
CPT/HCPCS: 96365; 93005; 87088; 85025; 87086; 80048; 36415; 83735; 85610; 80076; 87077; 87186; 84484; 83880; 70450; 71045; 99284; U0003; 81003; 81015

== ENCOUNTER 2022-05-27 20:55 | Emergency (ER) | payer OTHER ==
--- OUTSIDE RECORDS SUMMARY | 2022-05-27 21:01 | XMS REPORT | Continuity of Care Document ---
:1955 Author Organization [facility] t Address [address] [place] [address] Care Team Providers Name Role Phone William_Mariaa Attending Clinician Unavailable RACHEL Attending Clinician Unavailable MD RACHEL Y.H. Attending Clinician Unavailable Phil Attending Clinician Unavailable ADRIÁN_LILIANA Attending Clinician Unavailable [facility] Attending Clinician Unavailable Yenifer ELLIS Attending Clinician [phone] NILE Attending Clinician [phone] Tim Admitting Clinician Unavailable RACHEL Admitting Clinician Unavailable MD RACHEL Y.H. Admitting Clinician Unavailable Phil Admitting Clinician Unavailable ADRIÁN_LILIANA Admitting Clinician Unavailable Payers Payer Name Policy Type Policy Number Effective Date Expiration Date S [facility] [place]ARE [place]: [id number] 2020 [place] [employer] 00:00:00 [place] [id number] [place] Problems Condition Condition Condition Status Onset Resolution Last Treating Co mments Source Name Details Category Date Date Treatment Clinician Date Hyperlipid Hyperlipid Problem Active 20190 [facility] [place] em[facility] emia 3-25 da [facility] Hypertensi Hypertensi Problem Active [place] ve ve 3-15 da disorder [...] Dizziness Problem Active [place] [facility] Lung mass Lung Mass Problem Active [place] [facility] Allergies, Adverse Reactions, Alerts Allergy Allergy Status Severity Reaction(s) Onset Inactive Treating Comm ents Source Name Type Date Date Clinician Ciproflo Allergy Active Moderate Diarrhea [place] xacin to to severe da substanc [facility] Social History Social Habit Start Date Stop Date Quantity Comments Source Sex Assigned At Female [facility] Smoking Status Start Date Stop Date Source Unknown if ever smoked [facility] Former Smoker [facility] Medications Ordered Filled Start Stop Current Ordering Indication Dosage Frequency Signature Comments Components Source Medication Medication Date Date Medication? Clinician (SIG) Name Name lovastatin 2017-11 No take 1 [facility] 20 mg 1-19 tablet (20 ealth tablet 00:00: mg) by 00 oral route once daily with the evening meal ranitidine 2017-11 No take 1 [facility] 150 mg 1-14 tablet ealth tablet 00:00: (150 mg) 00 by oral route once daily at bedtime aspirin 325 2017-11 No take 1 [facility]ce ss[facility] mg tablet 1-14 tablet ealth 00:00: (325 mg) 00 by oral route once daily Calcium 600 2017-11 No 1 Tablet A ccessH + D(3) 600 1-13 by Oral ealth mg-125 unit 00:00: route 1 tablet 00 time per day metoprolol 2017-11 No take 1 [facility] tartrate 50 1-12 tablet (50 ea lth mg tablet 00:00: mg) by 00 oral route 2 times per day with meals amlodipine 2017-11 No take 1 [facility] 10 mg 1-12 tablet (10 ealth tablet 00:00: mg) by 00 oral route once daily Lexapro 10 2017-11 No take 1 [facility] mg tablet 1-12 tablet (10 ealt h 00:00: mg) by 00 oral route once daily alprazolam alprazolam No alprazolam [place] 0.5 mg 0.5 mg 0.5 mg da tablet TAKE tablet TAKE tablet Medical 1 TABLET BY 1 TABLET BY TAKE 1 Group MOUTH TWICE MOUTH TWICE TABLET BY A DAY A DAY MOUTH NEEDED FOR NEEDED FOR TWICE A ANXIETY ANXIETY DAY NEEDED FOR ANXIETY meclizine meclizine No 1 TID meclizine [place] 25 mg 25 mg 25 mg da tablet Take tablet Take tablet Medical 1 tablet 3 1 tablet 3 Take 1 G roup times a day times a day tablet 3 by oral by oral times a route. route. day by oral route. metoprolol metoprolol No metoprolol [place] tartrate 50 tartrate 50 tartrate da mg tablet mg tablet 50 mg Medi charlette TAKE 1 TAKE 1 tablet Group TABLET BY TABLET BY TAKE 1 MOUTH TWICE MOUTH TWICE TABLET BY A DAY A DAY MOUTH TWICE A DAY ondansetron ondansetron No ondansetro [place] 4 mg 4 mg n 4 mg da disintegrat disintegrat disintegra Medical ing tablet ing tablet ting Zhanna up DISSOLVE DISSOLVE tablet ONE (1) OR ONE (1) OR DISSOLVE TWO (2) TWO (2) ONE (1) OR TABLET(S) TABLET(S) TWO (2) BY MOUTH BY MOUTH TABLET(S) EVERY EIGHT EVERY EIGHT BY MOUTH HOURS HOURS EVERY NEEDED FOR NEEDED FOR EIGHT NAUSEA AND NAUSEA AND HOURS VOMITING. VOMITING. NEEDED FOR NAUSEA AND VOMITING. 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 TAKE 1 TAKE 1 tablet al TABLET [...] Source Name Name pneumococcal pneumococcal 2016-11-05 Completed [facility] polysaccharide PPV23 polysaccharide PPV23 00:00:00 [facility] Vital Signs Vital Name Observation Time Observation Value Comments Source BP Diastolic 2022-04-26 90 mm[Hg] [facility] 00[facility] Height 2022-04-26 64 [in_i] [facility] 00:[facility] Group BMI (Body Mass Index) 2022-04-26 35.2 kg/m2 [facility] single [facility] operator [facility] 00:00:00 Group BP Systolic 2022-04-26 169 mm[Hg] [facility] 00:00:00 Group Body Weight 2022-04-26 205 [lb_av] [facility] 00:00:00 Group BP Diastolic 2020-04-15 92 mm[Hg] [facility] Height 2020-04-15 63 [in_i] [facility] BMI (Body Mass Index) 2020-04-15 36.1 kg/m2 [place] [facility] operator [facility] 00:00:00 [facility] BP Systolic 2020-04-15 150 mm[Hg] [facility] 00:[facility] Body Weight 2020-04-15 3264 [oz_av] [facility] 00:[facility] BP Diastolic 2020-04-07 96 mm[Hg] [facility] 00:[facility] Height 2020-04-07 63 [in_i] [facility] BMI (Body Mass Index) 2020-04-07 36.2 kg/m2 [place] [facility] 00:00:00 [facility] BP Systolic 2020-04-07 168 mm[Hg] [facility] 00:[facility] Body Weight 2020-04-07 3273.6 [oz_av] [facility] 00:00:00 [facility] BP Diastolic 2020-03-10 84 mm[Hg] [facility] 00:00[facility] Height 2020-03-10 63 [in_i] [facility] 00:[facility] BMI (Body Mass Index) 2020-03-10 36.6 kg/m2 [place] [facility] 00:00:00 [facility] BP Systolic 2020-03-10 186 mm[Hg] [facility] Body Weight 2020-03-10 206.7 [lb_av] [facility]al 00:00:00 [facility] BP Diastolic 2019-12-30 88 mm[Hg] [facility] 00:[facility] Height 2019-12-30 63 [in_i] [facility] BMI (Body Mass Index) 2019-12-30 37.5 kg/m2 [place] [facility] 00:00:00 [facility] BP Systolic 2019-12-30 160 mm[Hg] [facility] 00:[facility] Body Weight 2019-12-30 211.8 [lb_av] [facility] 00:00:[facility] BP Diastolic 2019-09-04 90 mm[Hg] [facility] 00:[facility] Height 2019-09-04 63 [in_i] [facility] 00:[facility] BMI (Body Mass Index) 2019-09-04 35.4 kg/m2 [place] [facility] 00:00:00 [facility] BP Systolic 2019-09-04 160 mm[Hg] [facility] Body Weight 2019-09-04 200.1 [lb_av] [facility] 00:00:00 [facility] BP Diastolic 2019-07-31 88 mm[Hg] [facility] 00:00:[facility] Height 2019-07-31 63 [in_i] [facility] 00:[facility] BMI (Body Mass Index) 2019-07-31 34 kg/m2 [place] [facility] 00:00:00 [facility] BP Systolic 2019-07-31 152 mm[Hg] [facility] 00:00:[facility] Body Weight 2019-07-31 192 [lb_av] [facility] 00:00:[facility] BP Diastolic 2019-07-24 98 mm[Hg] [facility] 00:00:[facility] Height 2019-07-24 63 [in_i] [facility] 00:00:[facility] BMI (Body Mass Index) 2019-07-24 33.8 kg/m2 [place] [facility] 00:00:00 [facility] BP Systolic 2019-07-24 170 mm[Hg] [facility] 00:[facility] Body Weight 2019-07-24 190.6 [lb_av] [facility] 00:00:00 [facility] Body height 2018-09-18 62.00 [in_us] [facility] 12:04:00 Patient Body Weight 2018-09-18 198.00 [lb_av] [facility] 12:04:00 Intravascular 2018-09-18 142 mm[Hg] [facility] Systolic 12:04:00 Intravascular 2018-09-18 72 mm[Hg] [facility] Diastolic 12:04:00 Heart Beat 2018-09-18 77 /min [facility] 12:04:00 Body Temperature 2018-09-18 97.00 [degF] [facility] 12:04:00 Respiratory Rate 2018-09-18 20 /min [facility] 12:04:00 Body mass index 2018-09-18 36.20 kg/m2 [facility] 12:04:00 Body height 2018-09-16 62.50 [in_us] [facility] 10:34:00 Patient Body Weight 2018-09-16 197.60 [lb_av] [facility] 10:34:00 Intravascular 2018-09-16 162 mm[Hg] [facility] Systolic 10:34:00 Intravascular 2018-09-16 90 mm[Hg] [facility] Diastolic 10:34:00 Heart Beat 2018-09-16 64 /min [facility] 10:34:00 Body Temperature 2018-09-16 98.30 [degF] [facility] 10:34:00 Respiratory Rate 2018-09-16 20 /min [facility] 10:34:00 Body mass index 2018-09-16 35.60 kg/m2 [facility] 10:34:00 Procedures Procedure Date / Time Performing Clinician Source Performed MAMMO, screening, 2020-04-07 00:00:00 [facility] digital, bilateral Health Outrea [facility] Program ELECTROCARDIOGRAM, 2020-03-10 00:00:00 [facility] COMPLETE [facility] Bilateral Tubal Ligation [place] [facility] Hysterectomy [facility] Encounters Start End Encounter Admission Attending Care Care Encounter Source Date/Time Date/Time Type Type Clinicians Facility Department ID 2022-04-26 2022-04-26 Outpatient Yan_W [facility]G MMG [id number] [place] 01:52:00 01:52:00 0627 Medical Group 2022-04-26 2022-04-26 Outpatient Yan_W MMG MMG [id number] [place] 01:52:00 01:52:00 0622 Medical Group 2022-04-26 2022-04-26 Miller Thomas MMG [place] - [id number] [place] 00:00:00 00:00:00 MD: Allie Scott [facility] [address], [facility], Otolaryngol [facility] [address] , Ph. 2022-03-29 2022-03-29 Outpatient Yan_W MMG MMG [id number] [place] 03:01:00 03:01:00 0525 Medical Group 2022-03-29 2022-03-29 Outpatient Yan_W MMG MMG [id number] [place] 03:01:00 03:01:00 0621 Medical Group 2021-03-09 2021-03-10 Inpatient RAMOS [facility] 021 [id number] [place] 00:00:00 00:00:00 EDWARD [address] 2021-03-07 2021-03-07 Outpatient RAMOS, [facility] [id number] [place] 00:00:00 00:00:00 EDWARD [address] 2021-03-03 2021-03-03 Outpatient RAMOS, [facility] [id number] [place] 00:00:00 00:00:00 EDWARD [address] 2021-02-03 2021-02-03 Outpatient RAMOS, [facility] [id number] [place] 00:00:00 00:00:00 EDWARD [address] 2021-01-26 2021-01-26 Outpatient RAMOS, [facility] [id number] [place] 00:00:00 00:00:00 EDWARD [address] 2021-01-24 2021-01-24 Outpatient RAMOS, [facility] [id number] [place] 00:00:00 00:00:00 EDWARD [address] 2021-01-24 2021-01-24 Outpatient RAMOS, [facility] [id number] [place] 00:00:00 00:00:00 EDWARD [address] 2021-01-24 2021-01-24 Outpatient RAMOS, [facility] [id number] [place] 00:00:00 00:00:00 EDWARD [address] 2021-01-13 2021-01-13 Outpatient RAMOS, [facility] [id number] [place] 00:00:00 00:00:00 EDWARD [address] 2021-01-13 2021-01-13 Outpatient RAMOS, [facility] [id number] [place] 00:00:00 00:00:00 EDWARD [address] 2020-04-15 2020-04-15 Outpatient Obisesan_valentín VTMIGUEL [facility] [id number] [place] 05:21:00 05:21:00 ekunab [id number] da [facility] 2020-04-15 2020-04-15 Gonzalez CINTRON [place] - [id number] [place] 00:00:00 00:00:00 Amalia Dela Cruz 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 Program 2020-04-07 2020-04-07 Outpatient AMBREEN_FAR MEHOP MEHOP [id number] [place] 11:07:00 11:07:00 HANA 04305 [facility] 2020-04-07 2020-04-07 Liliana MEHOP [place] - [id number] [place] 00:00:00 00:00:00 Amalia Sampson MD: 1700 [facility] Ep[facility] [address] h , Ph. Program 2020-04-06 2020-04-06 Outpatient AMBREEN_FAR MEHOP [facility] 104 [id number]- [place] 12:29:00 12:29:00 HANA 98573 [facility] 2020-03-10 2020-03-10 Outpatient AMBREEN_FAR MEHOP VTHOP 104 [id number] [place] 03:22:00 03:22:00 HANA 77870 [facility] 2020-03-10 2020-03-10 [facility] [place] - [id number] [place] 00:00:00 00:00:00 Amalia Sampson MD: 1700 [facility] [address] h , Ph. 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 2018-10-07 2018-10-07 Outpatient [facility] [id number] Access 00:00:00 00:00:00 H, PROVIDER sally lt 2018-10-07 2018-10-07 Outpatient [facility] [id number] Access 00:00:00 00:00:00 H, PROVIDER [id number] 01-b [facility] [id number] 0f4 [id number] 2018-10-07 2018-10-07 Outpatient CRAFT, [facility] [id number] Access[facility] 00:00:00 00:00:[address] [id number] [facility] [id number] ee2 [id number] 2018-10-04 2018-10-04 Outpatient [facility] [id number] [facility] 00:00:00 00:00:00 H, PROVIDER [facility]ally [facility] 2018-10-04 2018-10-04 Outpatient [facility] HC [id number] [facility] 00:00:00 00:00:00 H, PROVIDER [id number] 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 d3-b ealt [id number] 0f4 [id number] 2018-09-29 2018-09-29 Outpatient DOWD, [facility] [id number] [facility] 00:00:00 00:00:00 LISA [id number] ealt [id number] [id number] 2018-09-23 2018-09-23 Outpatient [facility] [id number] [facility] 00:00:00 00:00:00 H, PROVIDER [facility] 2018-09-23 2018-09-23 Outpatient [facility] [id number] [facility] 00:00:00 00:00:00 H, PROVIDER e2-1ve6-20n fe9-42 fc-8 ealt [id number] [id number] 2018-09-23 2018-09-23 Outpatient DOWD, [facility] [id number] [facility] 00:00:00 00:00:00 LISA [id number] [id number] ealt [id number] 0f4 [id number] 2018-09-23 2018-09-23 Outpatient DOWD, [facility] [id number] [facility] 00:00:00 00:00:00 LISA [id number] ealt [id number] [id number] 2018-09-23 2018-09-23 Outpatient DOWD, [facility] [id number] [facility] 00:00:00 00:00:00 LISA [id number] ealt [id number] ee2 [id number] 2018-09-18 2018-09-18 Outpatient DOWD, [facility] [id number] [facility] 12:04:00 12:04:00 LISA [id number]-4504-901 [id number] ealt [id number] ee2 [id number] 2018-09-18 2018-09-18 Outpatient [facility] [id number] [facility] 00:00:00 00:00:00 H, PROVIDER [facility] 2018-09-18 2018-09-18 Outpatient [facility] [id number] [facility] 00:00:00 00:00:00 H, PROVIDER [id number] [id number] 1a-9 ealt [id number] 0f4 [id number] 2018-09-18 2018-09-18 Outpatient DOWD, [facility] [id number] [facility] 00:00:00 00:00:00 LISA [id number] [id number] [id number] 2018-09-18 2018-09-18 Outpatient DOWD, [facility] [id number] [facility] 00:00:00 00:00:00 LISA [id number] [id number] ealt [id number] 0f4 [id number] 2018-09-17 2018-09-17 Outpatient [facility] [id number] [facility] 00:00:00 00:00:00 H, PROVIDER sally franco 2018-09-17 2018-09-17 Outpatient [facility] [id number] [facility] 00:00:00 00:00:00 H, PROVIDER [id number] 7db-48 d5-b ealth [id number] 0f4 [id number] 2018-09-17 2018-09-17 Outpatient NILE, [facility] [id number] [facility] 00:00:00 00:00:00 LYONS [id number] ealt [id number] ee2 [id number] 2018-09-17 2018-09-17 Outpatient NILE, [facility] [id number] [facility] 00:00:00 00:00:00 LISA reyna-[id number] [id number] ealth [id number] 0f4 [id number] 2018-09-16 2018-09-16 Outpatient NILE, [facility] [id number] [facility] 10:34:00 10:34:00 LISA [id number] ealt [id number] ee2 [id number] 2018-09-16 2018-09-16 Outpatient [facility] [id number] [facility] 00:00:00 00:00:00 H, PROVIDER sally lt 2018-09-16 2018-09-16 Outpatient [facility] [id number] [facility] 00:00:00 00:00:00 H, PROVIDER [id number] [id number] 5f-9 ealth [id number] 0f4 [id number] 2018-09-16 2018-09-16 Outpatient NILE, [facility] [id number] [facility] 00:00:00 00:00:00 LISA [id number] [id number] ealth [id number] [id number] [id number] Results Test Description Test Time Test Comments Results Result Comments Source SARS-CoV-2 (COVID-19) RNA [Presence] in Respiratory sp ecimen by 2021-03-07 18:13:31 MANDEEP with probe detection Test Item Value Reference Range Interpretation Comme nts SARS-CoV-2 (COVID-19) RNA [Presence] in Respiratory Not detected No t-Detected specimen by MANDEEP with probe detection (test code = 37281-5) Whether patient is employed in a healthcare setting (test code = 39512-2) Whether the patient has symptoms related to condition of interest (test code = 70583-0) Patient was hospitalized because of this condition (test code = 82559-3) Whether the patient was admitted to intensive care unit (ICU) for condition of interest (test code = 76613-8) Whether patient resides in a congregate care setting (test code = 59369-3) SARS-CoV-2 (COVID-19) RNA [Presence] in Respiratory specimen by MANDEEP with probe [id number] 14:20:13 Test Item Value Reference Range Interpretation Comments SARS-CoV-2 (COVID-19) RNA Not detected Not-Detected [Presence] in Respiratory specimen by MANDEEP with probe detection (test code = 54637-5) Bacteria identified in Urine by [id number] 00:00:00 Test Item Value Reference Range Interpretation Comments Bacteria identified in klebsiella pneumoniae A Urine by Culture (test code = 630-4) Other Antibiotic comment [Susceptibility] (test code = 23011-8) [facility] - Serum or [id number] 00:00:00 Test Item Value Reference Range Interpretation Comments Thyrotropin [Units/volume] in 2.100 uIU/mL 0.450-4.500 Serum or Plasma by Detection limit <= 0.005 mIU/L (test code = 78855-1) Thyroxine (T4) free 1.16 NG/dL 0.82-1.77 [Mass/volume] in Serum or Plasma (test code = 3024-7) [facility] 2000 [facility] - Serum or [id number] 00:00:00 Test Item Value Reference Range Interpretation [...] by Creatinine-based formula (CKD-EPI) (test code = 86718-0) Glomerular filtration 73 mL/min/1.73 >59 rate/1.73 sq M.predicted among blacks [Volume Rate/Area] in Serum, Plasma or Blood by Creatinine-based formula (CKD-EPI) (test code = 82000-6) Urea nitrogen/Creatinine [Mass 17 12-28 Ratio] in [...] mg/dL 8.7-10.3 or Plasma (test code = 84192-2) Protein [Mass/volume] in Serum 7.2 g/dL 6.0-8.5 or Plasma (test code = 2885-2) Albumin [Mass/volume] in Serum 4.6 g/dL 3.8-4.8 or Plasma (test code = 1751-7) Globulin [Mass/volume] in 2.6 g/dL 1.5-4.5 Serum by calculation (test code = 61911-9) Albumin/Globulin [Mass Ratio] 1.8 1.2-2.2 in Serum [...] Serum or Plasma (test code = 1742-6) [facility], [id number] 00:00:00 Test Item Value Reference Range Interpretation [...] or Plasma by calculation (test code = 83866-8) Cholesterol in LDL [Mass/volume] in comment 0-99 Serum or Plasma by calculation (test code = 54958-4) Laboratory comment [Text] in Report nonprofit manager Narrative (test code = 76851-2) Cholesterol.total/Cholesterol.in 8.6 ratio 0.0-4.4 H HDL [Mass ratio] in Serum or Plasma (test code = 9830-1) Cholesterol in LDL/Cholesterol in tnp HDL [Mass Ratio] in Serum or Plasma (test code = 25928-2) [facility]/Hemoglobin.total in [id number] 00:00:00 Test Item Value Reference Range Interpretation Comments Hemoglobin A1c/Hemoglobin.total in 5.9 % 4.8-5.6 H Blood (test code = 4548-4) [facility], [id number] 00:00:00 Test Item Value Reference Range Interpretation Comments interpretation (test code = note interpretation) pdf image (test code = pdf image) . [facility] identified in Urine by [id number] 00:00:00 Test Item Value Reference Range Interpretation Comments Bacteria identified in klebsiella pneumoniae A Urine by Culture (test code = 630-4) Other Antibiotic comment [Susceptibility] (test code = 31805-5) [facility] [id number] 13:15:00 Test Item Value Reference Range Interpretation Comments Rate & Rhythm (test code = 61 sinus rhythm Rate & Rhythm) MO Interval (test code = MO 122 Interval) QRS Duration (test code = QRS 91 Duration) QT Interval (test code = QT 421 Interval) [facility] [id number] 13:15:00 Test Item Value Reference Range Interpretation Comments Rate & Rhythm (test code = 61 sinus rhythm Rate & Rhythm) MO Interval (test code = MO 122 Interval) QRS Duration (test code = QRS 91 Duration) QT Interval (test code = QT 421 Interval) [facility] - [id number] 12:55:00 Test Item Value Reference Range Interpretation Comments Leukocytes (test code = 3+ Leukocytes) Nitrite (test code = Nitrite) + Urobilinogen (test code = - Urobilinogen) Protein (test code = Protein) 1+ pH (test code = pH) 5.0 Blood (test code = Blood) +- Specific [place] (test code = 1.030 Specific [place]) Ketone (test code = Ketone) - Bilirubin (test code = Bilirubin) - Glucose (test code = Glucose) - Appearance (test code = cloudy Appearance) Color (test code = Color) dark yellow [id number] 00:00:00 Test Item Value Reference Range Interpretation Comments culture, urine (test specimen number: A code = culture, [id number] urine) [facility]
[2022-05-27] MEDS ORDERED: ASPIRIN 81 MG CHEWABLE TABLET ONE (22:21)
[2022-05-27 22:24] LABS: Absolute Lymphocytes (CBC) 2.4 K/uL (0.7-4.9); Hematocrit 42.3 % (36.0-45.0); Lymphocytes % 27.3 % (15.3-44.8); MCV 88.4 fL (80-100); MPV 11.1 fL (7.6-11.3); RBC Red Blood Cell Count 4.79 M/uL (3.86-4.86)
[2022-05-27 22:38] LABS: Potassium 3.8 mmol/L (3.5-5.1); Troponin High Sensitivity 7.9 pg/mL (<58.9)
--- NOTE | 2022-05-28 00:22 | ER ---
Nurse's Notes [facility] Name: Porsha Fontana Age: 66 yrs Sex: Female : 1955 Arrival Date: 05/27/2022 Time: 20:59 Bed 6 Private MD: Diagnosis: Chest pain, unspecified;Essential (primary) hypertension Presentation: 05/27 21:07 Chief complaint: Patient states: MID CHEST PAIN FOR 2 HOURS WHILE WATCHING TV. [facility] Coronavirus screen: Vaccine status: Patient reports being unvaccinated. At this time, the client does not indicate any symptoms associated with coronavirus-19. Ebola Screen: Patient negative for fever greater than or equal to 101.5 degrees Fahrenheit, and additional compatible Ebola Virus Disease symptoms. Initial Sepsis Screen: Does the patient meet any 2 criteria? No. Patient's initial sepsis screen is negative. Does the patient have a suspected source of infection? No. Patient's initial sepsis screen is negative. Risk Assessment: Do you want to hurt yourself or someone else? Patient reports no desire to harm self or others. Onset of symptoms was May 27, 2022. 21:07 Method Of Arrival: Ambulatory [facility] 21:07 Acuity: JEF 3 [facility] Triage Assessment: 21:09 General: Appears in no apparent distress. uncomfortable, Behavior is calm, cooperative, [facility] appropriate for age. Pain: Complains of pain in xiphoid area. Cardiovascular: Reports chest pain. Historical: - Allergies: 21:09 NKDA; [facility] - Home Meds: 21:09 albuterol sulfate 90 mcg/actuation Inhl aebs 2 puffs as needed [Active]; alprazolam 0.5 bh1 mg Oral tab 1 tab as needed for Anxiety [Active]; meclizine 25 mg Oral tab 1 tab 2 times per day [Active]; metoprolol tartrate 50 mg Oral tab 1 tab once daily [Active]; Zofran 4 mg Oral tab 1 tab as needed [Active]; - PMHx: 21:09 Anxiety; Hypertension; Lung Cancer; Vertigo; 1 - PSHx: 21:09 right upper lube lung removal; [facility] - Immunization history:: Adult Immunizations up to date. - Social history:: Smoking status: Patient denies any tobacco usage or history of. Screenin:25 Abuse screen: Denies threats or abuse. Denies injuries from another. Nutritional as6 screening: No deficits noted. Tuberculosis screening: No symptoms or risk factors identified. Fall Risk None identified. Assessment: 21:24 General: Appears in no apparent distress. Behavior is calm, cooperative. Pain: as6 Complains of pain in chest Pain radiates to left arm Quality of pain is described as throbbing, Pain began 2 hours ago. Neuro: Level of Consciousness is awake, alert. Cardiovascular: Reports chest pain. Respiratory: Respiratory effort is even, unlabored. GI: Reports nausea. Vital Signs: 21:07 BP 178 / 96; Pulse 62; Resp 20; Temp 97.9; Pulse Ox 96% on R/A; Weight 90.72 kg; Height 1 5 ft. 3 in. (160.02 cm); Pain 7/10; 21:25 BP 199 / 95; Pulse 59; Resp 20 S; Pulse Ox 95% on R/A; as6 22:37 BP 157 / 77; Pulse 59; Resp 23 S; Pulse Ox 99% on R/A; as6 23:33 BP 159 / 76; Pulse 57; Resp 19 S; Pulse Ox 96% on R/A; as6 21:07 Body Mass Index 35.43 (90.72 kg, 160.02 cm) 1 ED Course: 20:59 Patient arrived in ED. mr 21:00 Jose Alfredo Torres DO is Attending Physician. ms3 21:09 Triage completed. 1 21:09 Arm band placed on. 1 21:22 EKG done, by ED staff, reviewed by Jose Alfredo Torres DO. 5 21:23 Yeison Wallis, RN is Primary Nurse. as6 21:23 Patient has correct armband on for positive identification. Bed in low position. Call mh5 light in reach. Side rails up X 1. Warm blanket given. dry color tester on. Pulse ox on. NIBP on. :24 Inserted saline lock: 18 gauge in right antecubital area, using aseptic technique. as6 Blood collected. Patient maintains SpO2 saturation greater than 95% on room air. 22:12 Basic Metabolic Panel Sent. as6 22:12 CBC with Diff Sent. as6 22:12 Troponin HS Sent. as6 23:07 XRAY Chest (1 view) In Process Unspecified. EDMS 05/28 00:22 Andrew Sotelo DO is Referral Physician. ms3 00:44 No provider procedures requiring assistance completed. IV discontinued, intact, as6 bleeding controlled, No redness/swelling at site. Pressure dressing applied. 00:44 No provider procedures requiring assistance completed. vc1 Administered Medications: 05/27 22:16 Drug: Aspirin Chewable Tablet 324 mg Route: PO; as6 05/28 00:44 Follow up: Response: No adverse reaction as6 Medication: 00:45 VIS not applicable for this client. as6 Outcome: 00:22 Discharge ordered by MD. ms3 00:44 Discharged to home ambulatory. as6 00:44 Condition: stable 00:44 Discharge instructions given to patient, Instructed on discharge instructions, follow as6 up and referral plans. Demonstrated understanding of instructions, follow-up care. 00:45 Patient left the ED. as6 Signatures: Dispatcher [employer] EDIN [facility] Jose Alfredo Torres DO DO ms3 Yeison Wallis RN RN as6 Katharine Daniel RN RN vc1 Paige Farias RN RN bh1 Corrections: (The following items were deleted from the chart) 05/27 21:11 21:07 Pulse 62bpm; Resp 20bpm; Pulse Ox 96% RA; Temp 97.9F; 90.72 kg; Height 5 ft. 3 bh1 in.; BMI: 35.4; Pain 7/10; bh1
--- NOTE | 2022-05-28 00:22 | EDPHYS ---
Physician Documentation [facility] Name: Porsha Fontana Age: 66 yrs Sex: Female : 1955 Arrival Date: 05/27/2022 Time: 20:59 Bed 6 Private MD: ED Physician Jose Alfredo Torres HPI: 05/27 21:05 This 66 yrs old Female presents to ER via Unassigned with complaints of Chest Pain. ms3 21:05 66-year-old female with past medical history of hypertension presents for chest pain ms3 that began 1 hour prior to arrival. Patient states the pain is resolved at this time. Patient states the pain was located bilateral lower chest. Patient states the pain lasted for 1 to 2 minutes. Patient states the pain was 7/10 described as cramping. Patient denies vomiting, shortness of breath, diarrhea. Patient endorses nausea. Patient also notes that on driving to the emergency department she did experienced upper chest pain that was tight and also rated a 7/10. Historical: - Allergies: 21:09 NKDA; bh1 - Home Meds: 21:09 albuterol sulfate 90 mcg/actuation Inhl aebs 2 puffs as needed [Active]; alprazolam 0.5 bh1 mg Oral tab 1 tab as needed for Anxiety [Active]; meclizine 25 mg Oral tab 1 tab 2 times per day [Active]; metoprolol tartrate 50 mg Oral tab 1 tab once daily [Active]; Zofran 4 mg Oral tab 1 tab as needed [Active]; - PMHx: 21:09 Anxiety; Hypertension; Lung Cancer; Vertigo; bh1 - PSHx: 21:09 right upper lube lung removal; bh1 - Immunization history:: Adult Immunizations up to date. - Social history:: Smoking status: Patient denies any tobacco usage or history of. ROS: 21:05 Constitutional: Negative for fever, and chills. ENT: Negative for injury, pain, and ms3 discharge, Neck: Negative for injury, pain, and swelling. 21:05 Abdomen/GI: Negative for abdominal pain, nausea, vomiting, diarrhea, and constipation, Back: Negative for injury and pain, MS/Extremity: Negative for injury and deformity, Skin: Negative for injury, rash, and discoloration, Neuro: Negative for headache, weakness, numbness, tingling. Allergy/Immunology: Negative for hives, rash, and allergies. 21:05 Cardiovascular: Positive for chest pain. 21:05 All other systems are negative. Exam: 21:05 Constitutional: This is a well developed, well nourished patient who is awake, alert, ms3 and in no acute distress. Head/Face: Normocephalic, atraumatic. Neck: Trachea midline, no cervical lymphadenopathy. Supple, full range of motion without nuchal rigidity, or vertebral point tenderness. No Meningismus. Chest/axilla: Normal chest wall appearance and motion. Nontender with no deformity. Cardiovascular: Regular rate and rhythm with a normal S1 and S2. No gallops, murmurs, or rubs. Normal PMI, no JVD. No pulse deficits. Respiratory: Lungs have equal breath sounds bilaterally, clear to auscultation and percussion. No rales, rhonchi or wheezes noted. No increased work of breathing, no retractions or nasal flaring. Abdomen/GI: Soft, non-tender, with normal bowel sounds. No distension or tympany. No guarding or rebound. No evidence of tenderness throughout. Skin: Warm, dry with normal turgor. Normal color with no rashes, no lesions, and no evidence of cellulitis. MS/ Extremity: Pulses equal, no cyanosis. Neurovascular intact. Full, normal range of motion. Psych: Awake, alert, with orientation to person, place and time. Behavior, mood, and affect are within normal limits. 21:20 ECG was reviewed by the Attending Physician. ms3 Vital Signs: 21:07 BP 178 / 96; Pulse 62; Resp 20; Temp 97.9; Pulse Ox 96% on R/A; Weight 90.72 kg; Height bh1 5 ft. 3 in. (160.02 cm); Pain 7/10; 21:25 BP 199 / 95; Pulse 59; Resp 20 S; Pulse Ox 95% on R/A; as6 22:37 BP 157 / 77; Pulse 59; Resp 23 S; Pulse Ox 99% on R/A; as6 23:33 BP 159 / 76; Pulse 57; Resp 19 S; Pulse Ox 96% on R/A; as6 21:07 Body Mass Index 35.43 (90.72 kg, 160.02 cm) bh1 MDM: 21:05 Patient medically screened. ms3 21:05 Differential diagnosis: abnormal EKG, acute myocardial infarction, acute pericarditis, ms3 chest wall pain. 05/28 00:23 HEART Score: History: Slightly Suspicious (0), ECG: Normal (0), Age: > or = 65 years ms3 (2), Risk Factors: 1 or 2 risk factors (1), Troponin: < or = 1 x Normal Limit (0), Total Score = 3. The patient was given aspirin in the Emergency Department. Data reviewed: vital signs, nurses notes, lab test result(s), EKG, radiologic studies, and as a result, I will discharge patient. Counseling: I had a detailed discussion with the patient and/or guardian regarding: the historical points, exam findings, and any diagnostic results supporting the discharge/admit diagnosis, lab results, radiology results, the need for outpatient follow up, to return to the emergency department if symptoms worsen or persist or if there are any questions or concerns that arise at home. Special discussion: Based on the patient's history, exam, and Dx evaluation, there is no indication for emergent intervention or inpatient Tx. It is understood by the patient/guardian that if the Sx's persist or worsen they need to return immediately for re-evaluation. ED course: On reevaluation patient is alert and oriented x4, in no apparent distress, nontoxic-appearing, speaking full sentences, ambulatory in emergency department. . 05/27 21:47 Order name: Basic Metabolic Panel; Complete Time: 22:39 ms3 05/27 21:47 Order name: CBC with Diff; Complete Time: 22:39 3 05/27 21:47 Order name: Troponin HS; Complete Time: 22:39 ms3 05/27 21:47 Order name: XRAY Chest (1 view) ms3 05/27 21:47 Order name: EKG; Complete Time: 21:47 ms3 05/27 21:47 Order name: Cardiac monitoring; Complete Time: 22:12 ms3 05/27 21:47 Order name: EKG - Nurse/Tech; Complete Time: 22:12 ms3 05/27 21:47 Order name: IV Saline Lock; Complete Time: 22:12 ms3 05/27 21:47 Order name: Labs collected and sent; Complete Time: 22:12 ms3 05/27 21:47 Order name: O2 Per Protocol; Complete Time: 22:12 ms3 05/27 21:47 Order name: O2 Sat Monitoring; Complete Time: 22:12 ms3 EC/23 21:20 Rate is 62 beats/min. Rhythm is regular. QRS [place] is Normal. NE interval is normal. ms3 Clinical impression: Normal ECG. Interpreted by me. Reviewed by me. Administered Medications: 22:16 Drug: Aspirin Chewable Tablet 324 mg Route: PO; as6 05/28 00:44 Follow up: Response: No adverse reaction as6 Disposition Summary: 05/28/22 00:22 Discharge Ordered Location: Home ms3 Condition: Stable ms3 Diagnosis - Chest pain, unspecified ms3 - Essential (primary) hypertension ms3 Followup: ms3 - With: Andrew Sotelo DO - When: 2 - 3 days - Reason: Recheck today's complaints Discharge Instructions: - Discharge Summary Sheet ms3 - Nonspecific Chest Pain, Adult ms3 Forms: - Medication Reconciliation Form ms3 - Thank You Letter ms3 - Antibiotic Education ms3 - Prescription Opioid Use ms3 Signatures: Dispatcher [employer] EDJose Alfredo Ayala DO DO ms3 eYison Wallis, RN RN as6 Paige Farias RN RN 1
[2022-05-28 01:25] VITALS: TEMP 97.9
[2022-05-28 01:31] VITALS: BP 159/76; O2SAT 96
--- NOTE | 2022-05-29 09:29 | EKG ---
Test Date: 2022-05-27 Test Time: 21:20:34 Toy Department Manager: NIC MEASUREMENT RESULTS: Intervals: Rate: 62 WY: 140 QRSD: 84 QT: 428 QTc: 434 [place]: P: -20 WY: 140 QRS: 16 T: 68 INTERPRETIVE STATEMENTS: Normal sinus rhythm with sinus arrhythmia Normal ECG Compared to ECG 10/13/2021 20:31:43 Myocardial infarct finding no longer present Electronically Signed On 05-29-22 09:24:59 CDT by Toribio Hanson
--- NOTE | 2022-05-29 13:55 | RAD REPORT ---
EXAM DESCRIPTION: RAD - Chest Single View - 05/27/2022 11:05 pm CLINICAL HISTORY: 6 years Female, CHEST PAIN COMPARISON: Chest radiograph dated 10/13/2021 FINDINGS: No focal lung consolidation. No pleural effusion. No pneumothorax. Cardiomediastinal silhouette is within normal limits. No acute osseous abnormality. IMPRESSION: No acute cardiopulmonary disease. Electronically signed by: Benedicto Ngo DO 05/27/2022 11:37 PM CDT Due to temporary technical issues with the PACS/Fluency reporting system, reports are being signed by the in house radiologists without review as a courtesy to insure prompt reporting. The interpreting radiologist is fully responsible for the content of the report.
== END 2022-05-28 00:45 | disposition home or self-care (01) ==
LOC: ER 20:55
DX: R07.89 Other chest pain (principal); I10 Essential (primary) hypertension; F41.9 Anxiety disorder, unspecified; Z85.118 Personal history of other malignant neoplasm of bronchus and lung
CPT/HCPCS: 36415; 71045; 80048; 84484; 85025; 93005; 99285

== ENCOUNTER 2022-09-03 13:38 | Inpatient (IN) | payer OTHER ==
--- OUTSIDE RECORDS SUMMARY | 2022-09-03 13:48 | XMS REPORT | Continuity of Care Document ---
:1955 Author Organization [facility] t Address [address] [place] [address] Support Name Relationship Address Phone Information, No Unavailable Unavailable Unavailable BETTYE NEAL, JACQUE Emergency Provider [address] [facility] [address] OTHER, ENTER NAME IN Primary Care Physician Unavailable Unav ailable NOTES Gallo SAMPSON Primary Care Physician [address] [facility] [place] [place] [address] MD PRASAD DUNBAR Emergency Provider [address] [place] [address] [place] [address] ORNELASADRIENNE COELHO Family Member [address] [place] [address] ADRIENNE ORNELAS Family Member [address] [place] [address] Rush Redd Domestic partner Unavailable [phone] Care Team Providers Name Role Phone Scottie Gardner MD Primary Care Physician Provider , Not In System Attending Clinician Unavailable Tim Attending Clinician Unavailable CARLA RAMOS Attending Clinician Unavailable MD CARLA RAMOS.HApoorva Attending Clinician Unavailable Obcarla Attending Clinician Unavailable BRIAN Attending Clinician Unavailable [facility], PROVIDER Attending Clinician Unavailable LAUREN ELLIS Attending Clinician [phone] LISA DOWD Attending Clinician [phone] Tim Admitting Clinician Unavailable CARLA RAMOS Admitting Clinician Unavailable MD CARLA RAMOS.HApoorva Admitting Clinician Unavailable Obisestorrie Admitting Clinician Unavailable BRIAN Admitting Clinician Unavailable Payers Payer Name Policy Type Policy Number Effective Date Expiration Date S ource [place]: [id number] 2020 [employer] 00:00:00 [place] [id number] [place] Problems Condition Condition Condition Status Onset Resolution Last Treating Co mments Source Name Details Category Date Date Treatment Clinician Date Cancer of Cancer of Disease Active Overview: [facility] upper lobe upper lobe 4-[address] of right of right 00:00: g of this [facility] lung lung 00 note l might be different from the original. Added automatic ally from request for surgery [id number] Mass of Mass of Disease Active Overview: Meth santa upper lobe upper lobe 3-[address] of right of right 00:00: g of this [facility] lung lung 00 note l might be different from the original. Added automatic ally from request for surgery [id number] Hyperlipid Hyperlipid Problem Active M [facility] emia emia 3-25 da 00:00: [...] [facility] Family History Family Member Diagnosis Comments Start Date Stop Date Source Natural father Heart disease [facility] Natural sister Lymphoma [facility] Social History Social Habit Start Date Stop Date Quantity Comments Source History SDOH [facility] Drinks History SDOH [facility] Alcohol intake 2021-04-14 2021-04-14 Lifetime [facility] 00:00:00 00:00:00 non-drinker Hospital (finding) Tobacco use and 2021-03-09 2021-03-09 Smokeless tobacco [facility] exposure 00:00:00 00:00:00 non-user Hospital History SDOH 2021-01-13 2021-01-13 1 [facility] Alcohol Frequency 00:00:00 00:00:00 Hospita l History of 2016-03-09 Current smoker [facility] tobacco use 00:00:00 Hospital Sex Ass[birth year] [facility] 00:00:00 00:00:00 Hospital Smoking Status Start Date Stop Date Source Former Smoker [facility] Unknown if ever [facility] Medications Ordered Filled Start Stop Current Ordering Indication Dosage Frequency Signature Comments Components Source Medication Medication Date Date Medication? 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 TAKE 1 TAKE 1 tablet al TABLET [...] Source Name Name pneumococcal pneumococcal 2016-11-05 Completed [facility] [facility] polysaccharide PPV23 polysaccharide PPV23 00:00:00 [facility] Vital Signs Vital Name Observation Time Observation Value Comments Source BP Diastolic 2022-04-26 90 mm[Hg] [facility] Height 2022-04-26 64 [in_i] [facility] 00:[facility] BMI (Body Mass Index) 2022-04-26 35.2 kg/m2 [facility] 00:00:00 Group BP Systolic 2022-04-26 169 mm[Hg] [facility] 00:[facility] Body Weight 2022-04-26 205 [lb_av] [facility] 00:[facility] Group BP Diastolic 2020-04-15 92 mm[Hg] [facility] [facility] Height 2020-04-15 63 [in_i] [facility] BMI (Body Mass Index) 2020-04-15 36.1 kg/m2 [facility] 00:00[facility] BP Systolic 2020-04-15 150 mm[Hg] [facility] Body Weight 2020-04-15 3264 [oz_av] [facility] 00:[facility] BP Diastolic 2020-04-07 96 mm[Hg] [facility] 00:[facility] Height 2020-04-07 63 [in_i] [facility] BMI (Body Mass Index) 2020-04-07 36.2 kg/m2 [facility] 00:00[facility] BP Systolic 2020-04-07 168 mm[Hg] [facility] 00:[facility] Body Weight 2020-04-07 3273.6 [oz_av] [facility] 00:00:[facility] BP Diastolic 2020-03-10 84 mm[Hg] [facility] 00:[facility] Height 2020-03-10 63 [in_i] [facility] 00[facility] BMI (Body Mass Index) 2020-03-10 36.6 kg/m2 [facility] 00:00:[facility] BP Systolic 2020-03-10 186 mm[Hg] [facility] Body Weight 2020-03-10 206.7 [lb_av] [facility] 00:00:[facility] BP Diastolic 2019-12-30 88 mm[Hg] [facility] 00:[facility] Height 2019-12-30 63 [in_i] [facility] 00[facility] BMI (Body Mass Index) 2019-12-30 37.5 kg/m2 [facility] 00:00[facility] BP Systolic 2019-12-30 160 mm[Hg] [facility] Body Weight 2019-12-30 211.8 [lb_av] [facility] 00:00:00 [facility] BP Diastolic 2019-09-04 90 mm[Hg] [facility] 00:00[facility] Height 2019-09-04 63 [in_i] [facility] 00[facility] BMI (Body Mass Index) 2019-09-04 35.4 kg/m2 [place] 00:[facility] BP Systolic 2019-09-04 160 mm[Hg] [facility] 00:[facility] Body Weight 2019-09-04 200.1 [lb_av] [facility] 00:00:[facility] BP Diastolic 2019-07-31 88 mm[Hg] [facility] 00:[facility] Height 2019-07-31 63 [in_i] [facility] BMI (Body Mass Index) 2019-07-31 34 kg/m2 [place] [facility] 00:00:00 [facility] BP Systolic 2019-07-31 152 mm[Hg] [facility] Body Weight 2019-07-31 192 [lb_av] [facility] 00:[facility] BP Diastolic 2019-07-24 98 mm[Hg] [facility] 00:00[facility] Height 2019-07-24 63 [in_i] [facility] 00:[facility] BMI (Body Mass Index) 2019-07-24 33.8 kg/m2 [facility] 00:00:00 [facility] BP Systolic 2019-07-24 170 mm[Hg] [facility] Body Weight 2019-07-24 190.6 [lb_av] [facility] 00:00:[facility] Body [...] Date / Time Performing Clinician Source Performed PET CT SKULL BASE TO MID 2022-08-03 00:00:00 Provider, Not In [facility] THIGH System XR RIBS 2 VW LEFT 2022-06-05 00:00:00 Provider, Not In [facility] System CT CHEST W CONTRAST 2022-06-05 00:00:00 Provider, Not In [facility] XR CHEST 1 VW 2022-05-27 00:00:00 Provider, Not In [facility] [id number] 2022-05-27 00:00:00 Provider, Not In [facility] ECG 12-LEAD 2022-05-27 00:00:00 Provider, Not In [facility] XR CHEST 2 VW 2022-04-17 00:00:00 Provider, Not In [facility] MAMMO, screening, 2020-04-07 00:00:00 [facility] digital, bilateral [facility]rea [facility] ELECTROCARDIOGRAM, 2020-03-10 00:00:00 [facility] COMPLETE [facility] Bilateral Tubal Ligation [place] [facility] Hysterectomy [facility] Plan of Care Planned Activity Planned Date Details Comments Source Future Scheduled 2022-08-28 HEPATITIS B VACCINES [facility] Test 11:53:47 (1 of 3 - 3-dose series) [code = HEPATITIS B VACCINES (1 of 3 - 3-dose series)] Future Scheduled 2022-08-28 COVID-19 VACCINE (#1) [facility] Test 11:53:47 [code = COVID-19 VACCINE (#1)] Future Scheduled 2022-08-28 Hepatitis C screening [facility] Test 11:53:47 (procedure) [code = 598154092] Future Scheduled 2022-08-[address] [facility] Test 11:53:47 SCREENING [code = BREAST CANCER SCREENING] Future Scheduled 2022-08-28 COLONOSCOPY SCREENING [facility] Test 11:53:47 [code = COLONOSCOPY SCREENING] Future Scheduled 2022-08-28 SHINGLES VACCINES (1 [facility] Test 11:53:47 of 2) [code = SHINGLES VACCINES (1 of 2)] Future Scheduled 2022-08-28 65+ PNEUMOCOCCAL [facility] Test 11:53:47 VACCINE (2 - PCV) [code = 65+ PNEUMOCOCCAL VACCINE (2 - PCV)] Future Scheduled 2022-08-28 INFLUENZA VACCINE [facility] Test 11:53:47 [code = INFLUENZA VACCINE] Encounters Start End Encounter Admission Attending Care Care Encounter Source Date/Time Date/Time Type Type Clinicians Facility Department ID 2022-08-28 2022-08-28 Orders Provider, 1.2.840.1 [id number] [facility] 00:00:00 00:00:00 Only [place] [address].1.[address] System 3.430.2.7 Hospit a .3.893278 l .8 2022-08-24 2022-08-24 Orders Provider, 1.2.840.1 [id number] [facility] 00:00:00 00:00:00 [place] [address].1.[address] System 3.430.2.7 Hospit a .3.658061 l .8 2022-04-26 2022-04-[address] Yan_W [facility] [id number] [place] 01:52:00 01:52:00 0627 Medical Group 2022-04-26 2022-04-26 Out[address] Yan_W [facility] [id number] [place] 01:52:00 01:52:00 0622 [facility] 2022-04-26 2022-04-26 CORTES Pearson [place] - [id number] [place] 00:00:00 00:00:00 MD: Allie Scott [facility] [address], [facility], Otolaryngol [facility] [address] , Ph. 2022-03-29 2022-03-29 Out[address] Yan_W [facility] [id number] [place] 03:01:00 03:01:00 0525 [facility] 2022-03-29 2022-03-29 [facility] [id number] [place] 03:01:00 03:01:00 0621 da Medical Group 2021-03-09 2021-03-10 Inpatient RAMOS, [facility] [id number] [place] 00:00:00 00:00:[address] [place] [address] 2021-03-07 2021-03-07 Outpatient RAMOS, [facility] [id number] [place] 00:00:00 00:00:00 EDWARD [address] 2021-03-03 2021-03-03 Outpatient RAMOS, [facility] [id number] [place] 00:00:00 00:00:00 EDWARD [address] 2021-02-03 2021-02-03 Outpatient RAMOS, [facility] [id number] [place] 00:00:00 00:00:00 EDWARD [address] 2021-01-26 2021-01-26 Outpatient RAMOS, [facility] [id number] [place] 00:00:00 00:00:00 EDWARD [address] 2021-01-24 2021-01-24 Outpatient RAMOS, [facility] [id number] [place] 00:00:00 00:00:00 EDWARD [address] 2021-01-24 2021-01-24 Outpatient RAMOS, [facility] [id number] [place] 00:00:00 00:00:00 EDWARD [address] 2021-01-24 2021-01-24 Outpatient RAMOS, [facility] [id number] [place] 00:00:00 00:00:00 EDWARD [address] 2021-01-13 2021-01-13 Outpatient RAMOS, [facility] [id number] [place] 00:00:00 00:00:00 EDWARD [address] 2021-01-13 2021-01-13 Outpatient RAMOS, [facility] [id number] [place] 00:00:00 00:00:00 EDWARD [address] 2020-04-15 2020-04-15 Outpatient Obisesan_ad ABDULAZIZ [facility] [id number] [place] 05:21:00 05:21:00 ekveronica 52007 da [facility] Program 2020-04-15 2020-04-15 Gonzalez [facility] [place] - [id number] [place] 00:00:00 00:00:00 Amalia Dela Cruz NP: 1700 [facility] [place] [address] h , Ph. Program 2020-04-07 2020-04-07 Outpatient AMBREEN_FAR MEHOP [facility] [id number] [place] 11:07:00 11:07:00 HANA 73748 [facility] 2020-04-07 2020-04-07 [facility] [id number] M [place] 00:00:00 00:00:00 Amalia Sampson MD: 1700 [facility] [address] h , Ph. Program 2020-04-06 2020-04-06 Outpatient AMBREEN_FAR MEHOP [facility] 104 [id number]- [place] 12:29:00 12:29:00 HANA [id number] [facility] 2020-03-10 2020-03-10 Outpatient AMBREEN_FAR MEHOP MEHOP [id number] [place] 03:22:00 03:22:00 HANA [id number] [facility] 2020-03-10 2020-03-10 [facility] [id number] M [place] 00:00:00 00:00:00 Amalia Sampson MD: 1700 [facility] [address] h , Ph. Program 2020-03-09 2020-03-09 Outpatient AMBREEN_FAR MEHOP MEHOP [id number] [place] 08:29:00 08:29:00 HANA [id number] da [facility] 2019-12-30 2019-12-30 Outpatient AMBREEN_FAR MEHOP MEHOP [id number] [place] 04:49:00 04:49:00 HANA 07076 [facility] 2019-12-30 2019-12-30Liliana [facility] [place] - [id number] M [place] 00:00:00 00:00:00 Amalia Sampson MD: [id number] [facility] Epis [employer] [place] [address] [facility] A, [facility] [place] Program [address] , Ph. 2019-09-04 2019-09-[address] [facility] - [id number] M [place] 00:00:00 00:00:00 Amalia Sampson MD: [id number] [facility] [employer] [place] [address] [facility] A, [facility] [place] Program [address] , Ph. 2019-07-31 2019-07-[address] [facility] - [id number] M [place] 00:00:00 00:00:00 Amalia Sampson MD: [id number] [facility] [employer] [place] [address] [facility] A, [facility] [place] Program [address] , Ph. 2019-07-24 2019-07-[address] [facility] - [id number] M [place] 00:00:00 00:00:00 Amalia Sampson MD: [id number] [facility] [employer] [place] [address] [facility] A, [facility] [place] Program [address] , Ph. 2018-10-07 2018-10-07 Outpatient [facility] [id number] Access[facility] 00:00:00 00:00:00 H, PROVIDER [facility] 2018-10-07 2018-10-[address] [facility] [id number] Access[facility] 00:00:00 00:00:00 H, PROVIDER e2-1ob9-40j 8f2-44 01-b [facility] [id number] 0f4 [id number] 2018-10-07 2018-10-07 Outpatient CRAFT, [facility] [id number] AccessH 00:00:00 00:00:00 LAUREN Yenifer [id number] [facility] [id number] ee2 [id number] 2018-10-04 2018-10-04 Outpatient [facility] [id number] Access[facility] 00:00:00 00:00:00 H, PROVIDER [facility] 2018-10-04 2018-10-[address] [facility] [id number] Access[facility] 00:00:00 00:00:00 H, PROVIDER reyna-8pp7-02q registered nurse nursery-4c d3-b ealt [id number] 0f4 [id number] 2018-09-29 2018-09-29 Outpatient DOWD, [facility] [id number] Access[facility] 00:00:00 00:00:00 LISA [id number] [facility] [id number] ee2 [id number] 2018-09-23 2018-09-23 Outpatient [facility] [id number] [facility] 00:00:00 00:00:00 H, PROVIDER [facility] 2018-09-23 2018-09-[address] [facility] [id number] Access[facility] 00:00:00 00:00:00 H, PROVIDER reyna-4ra9-61r fe9-42 fc-8 ealt [id number] 0f4 [id number] 2018-09-23 2018-09-23 Outpatient DOWD, [facility] [id number] Access[facility] 00:00:00 00:00:00 LISA e2-0kp4-71v [id number] ealt [id number] 0f4 [id number] 2018-09-23 2018-09-23 Outpatient DOWD, [facility] [id number] [facility] 00:00:00 00:00:00 PORTER e9-44df-910 [id number] [facility] [id number] c82 [id number] 2018-09-23 2018-09-23 Outpatient NILE, [facility] [id number] Access[facility] 00:00:00 00:00:00 PORTER [id number] ealt [id number] ee2 [id number] 2018-09-18 2018-09-18 Outpatient NILE, [facility] [id number] [facility] 12:04:00 12:04:00 PORTER [id number] [facility] [id number] ee2 [id number] 2018-09-18 2018-09-18 Outpatient [facility] [id number] [facility] 00:00:00 00:00:00 H, PROVIDER ea lth 2018-09-18 2018-09-[address] [facility] [id number] Access[facility] 00:00:00 00:00:00 H, PROVIDER e2-7zj1-40w 8f3-43 1a-9 ealt [id number] 0f4 [id number] 2018-09-18 2018-09-18 Outpatient DOWD, [facility] [id number] [facility] 00:00:00 00:00:00 PORTER [id number]-910 [id number]-b ealt [id number] c82 [id number] 2018-09-18 2018-09-18 Outpatient DOWD, [facility] [id number] Access[facility] 00:00:00 00:00:00 PORTER e2-4sj6-51b [id number]-q ealt [id number] 0f4 [id number] 2018-09-17 2018-09-17 Outpatient [facility] [id number] [facility] 00:00:00 00:00:00 H, PROVIDER [facility] 2018-09-17 2018-09-[address] [facility] [id number] [facility] 00:00:00 00:00:00 H, PROVIDER e2-2zz6-46u 7db-48 d5-b ealt [id number] 0f4 [id number] 2018-09-17 2018-09-17 Outpatient DOWD, [facility] [id number] [facility] 00:00:00 00:00:00 LISA [id number] ealt [id number] ee2 [id number] 2018-09-17 2018-09-17 Outpatient DOWD, [facility] [id number] [facility] 00:00:00 00:00:00 LISA orellana-4vm1-35w [id number] ealt [id number] 0f4 [id number] 2018-09-16 2018-09-16 Outpatient DOWD, [facility] [id number] Access[facility] 10:34:00 10:34:00 LISA [id number]-[id number]-m ealt [id number] ee2 [id number] 2018-09-16 2018-09-16 Outpatient [facility] [id number] [facility] 00:00:00 00:00:00 H, PROVIDER [facility] 2018-09-16 2018-09-[address] [facility] [id number] [facility] 00:00:00 00:00:00 H, PROVIDER e2-9oq4-33q dd0-49 5f-9 ealt [id number] [id number] 0f4 [id number] 2018-09-16 2018-09-16 Outpatient DOWD, [facility] [id number] Access 00:00:00 00:00:00 LISA e2-5ki3-71f [id number]-4de1-8 [facility] [id number] 0f4 [id number] Results Test Description Test Time Test Comments Results Result Comments Source SARS-CoV-2 (COVID-19) RNA [Presence] in Respiratory sp ecimen by 2021-03-07 18:13:31 MANDEEP with probe detection Test Item Value Reference Range Interpretation Comme nts SARS-CoV-2 (COVID-19) RNA [Presence] in Respiratory Not detected No t-Detected specimen by MANDEEP with probe detection (test code = 05888-7) Whether patient is employed in a healthcare setting (test code = 58055-6) Whether the patient has symptoms related to condition of interest (test code = 21552-8) Patient was hospitalized because of this condition (test code = 35562-5) Whether the patient was admitted to intensive care unit (ICU) for condition of interest (test code = 09746-4) Whether patient resides in a congregate care setting (test code = 83465-5) BHUMIKA ASHBYSARS-CoV-2 (COVID-19) RNA [Presence] in Respiratory specimen by MANDEEP with probe [id number] 14:20:13 Test Item Value Reference Range Interpretation Comments SARS-CoV-2 (COVID-19) RNA Not detected Not-Detected [Presence] in Respiratory specimen by MANDEEP with probe detection (test code = 15015-8) BHUMIKA ASHBYBacteria identified in Urine by [id number] 00:00:00 Test Item Value Reference Range Interpretation Comments Bacteria identified in klebsiella pneumoniae A Urine by Culture (test code = 630-4) Other Antibiotic comment [Susceptibility] (test code = 73456-9) [facility] Program[facility] T4 and TSH panel - Serum or [id number] 00:00:00 Test Item Value Reference Range Interpretation Comments Thyrotropin [Units/volume] in 2.100 uIU/mL 0.450-4.500 Serum or Plasma by Detection limit <= 0.005 mIU/L (test code = 44970-7) Thyroxine (T4) free 1.16 NG/dL 0.82-1.77 [Mass/volume] in Serum or Plasma (test code = 3024-7) [facility] 2000 [facility] - Serum or [id number] 00:00:00 Test Item Value Reference Range Interpretation [...] by Creatinine-based formula (CKD-EPI) (test code = 02010-4) Glomerular filtration 73 mL/min/1.73 >59 rate/1.73 sq M.predicted among blacks [Volume Rate/Area] in Serum, Plasma or Blood by Creatinine-based formula (CKD-EPI) (test code = 47891-2) Urea nitrogen/Creatinine [Mass 17 12-28 Ratio] in [...] mg/dL 8.7-10.3 or Plasma (test code = 27012-4) Protein [Mass/volume] in Serum 7.2 g/dL 6.0-8.5 or Plasma (test code = 2885-2) Albumin [Mass/volume] in Serum 4.6 g/dL 3.8-4.8 or Plasma (test code = 1751-7) Globulin [Mass/volume] in 2.6 g/dL 1.5-4.5 Serum by calculation (test code = 91609-4) Albumin/Globulin [Mass Ratio] 1.8 1.2-2.2 in Serum [...] Serum or Plasma (test code = 1742-6) [facility], [id number] 00:00:00 Test Item Value Reference Range Interpretation [...] or Plasma by calculation (test code = 31116-6) Cholesterol in LDL [Mass/volume] in comment 0-99 Serum or Plasma by calculation (test code = 60734-2) Laboratory comment [Text] in Report website project manager Narrative (test code = 95536-1) Cholesterol.total/Cholesterol.in 8.6 ratio 0.0-4.4 H HDL [Mass ratio] in Serum or Plasma (test code = 9830-1) Cholesterol in LDL/Cholesterol in tnp HDL [Mass Ratio] in Serum or Plasma (test code = 77754-0) [facility] HospitalHemoglobin A1c/Hemoglobin.total in [id number] 00:00:00 Test Item Value Reference Range Interpretation Comments Hemoglobin A1c/Hemoglobin.total in 5.9 % 4.8-5.6 H Blood (test code = 4548-4) [facility] panel, [id number] 00:00:00 Test Item Value Reference Range Interpretation Comments interpretation (test code = note interpretation) pdf image (test code = pdf image) . [facility] by [id number] 00:00:00 Test Item Value Reference Range Interpretation Comments Bacteria identified in klebsiella pneumoniae A Urine by Culture (test code = 630-4) Other Antibiotic comment [Susceptibility] (test code = 62037-3) [facility] [id number] 13:15:00 Test Item Value Reference Range Interpretation Comments Rate & Rhythm (test code = 61 sinus rhythm Rate & Rhythm) MA Interval (test code = MA 122 Interval) QRS Duration (test code = QRS 91 Duration) QT Interval (test code = QT 421 Interval) [facility] [id number] 13:15:00 Test Item Value Reference Range Interpretation Comments Rate & Rhythm (test code = 61 sinus rhythm Rate & Rhythm) MA Interval (test code = MA 122 Interval) QRS Duration (test code = QRS 91 Duration) QT Interval (test code = QT 421 Interval) [facility] (dipstick) panel - [id number] 12:55:00 Test Item Value Reference Range Interpretation Comments Leukocytes (test code = 3+ Leukocytes) Nitrite (test code = Nitrite) + Urobilinogen (test code = - Urobilinogen) Protein (test code = Protein) 1+ pH (test code = pH) 5.0 Blood (test code = Blood) +- Specific [place] (test code = 1.030 Specific [place]) Ketone (test code = Ketone) - Bilirubin (test code = Bilirubin) - Glucose (test code = Glucose) - Appearance (test code = cloudy Appearance) Color (test code = Color) dark yellow [facility] Urine by [id number] 00:00:00 Test Item Value Reference Range Interpretation Comments culture, urine (test specimen number: A code = culture, [id number] urine) [facility]
[2022-09-03] MEDS ORDERED: TENECTEPLASE 50 MG/10 ML VIAL IV ONE (14:00)
--- NOTE | 2022-09-03 14:01 | RAD REPORT ---
EXAM DESCRIPTION: CT - Ct Stroke Brain Wo Cont - 09/03/2022 1:54 pm CLINICAL HISTORY: Blurred vision COMPARISON: 2020 TECHNIQUE: Computed axial tomography of the head was obtained. All CT scans are performed using dose optimization technique as appropriate and may include automated exposure control or mA/KV adjustment according to patient size. FINDINGS: An intracranial bleed is not seen . The ventricles are normal in caliber. No extra-axial fluid collection is noted. No significant hypodensity within the brain is seen Fluid within the right maxillary and ethmoid sinus probably acute sinusitis IMPRESSION: No acute intracranial abnormality is seen. If patient's symptoms persist MRI of the bra in would be recommended. Acute sinusitis Quyen of the emergency room was notified at 1:55 p.m. on September 03, 2022
[2022-09-03 14:20] LABS: Absolute Lymphocytes (CBC) 2.2 K/uL (0.7-4.9); Hematocrit 41.2 % (36.0-45.0); Lymphocytes % 26.2 % (15.3-44.8); MPV 10.8 fL (7.6-11.3); RBC Red Blood Cell Count 4.68 M/uL (3.86-4.86)
[2022-09-03 14:29] LABS: Protime INR 0.95
--- NOTE | 2022-09-03 14:29 | RAD REPORT ---
EXAM DESCRIPTION: Meme Single View09/03/2022 2:19 pm CLINICAL HISTORY: Blurred vision COMPARISON: May 2022 FINDINGS: The lungs appear clear of acute infiltrate. The heart is normal size IMPRESSION: No acute abnormalities displayed
[2022-09-03 14:48] LABS: ALT/SGPT 20 U/L (12-78); AST/SGOT 12 U/L (15-37); Albumin 3.7 g/dL (3.4-5.0); Alkaline Phosphatase 146 U/L (45-117); BUN Blood Urea Nitrogen 24 mg/dL (7-18); Bicarbonate 25 mmol/L (21-32); Bilirubin Total 0.3 mg/dL (0.2-1.0); Glomerular Filtration Rate 56 ml/min (=/>90); Glucose Level 103 mg/dL (74-106); Magnesium 2.3 mg/dL (1.8-2.4); Potassium 4.1 mmol/L (3.5-5.1); Protein, Total 7.7 g/dL (6.4-8.2); Sodium Level 135 mmol/L (136-145); Troponin High Sensitivity 10.3 pg/mL (<58.9)
[2022-09-03 14:51] LABS: SARS-CoV-2 Antigen Rapid Res Negative (Negative)
[2022-09-03 14:56] LABS: Bilirubin Direct < 0.1 mg/dL (0-0.2)
--- NOTE | 2022-09-03 15:37 | RAD REPORT ---
EXAM DESCRIPTION: Jazlyn Angio09/03/2022 3:16 pm CLINICAL HISTORY: aphasia COMPARISON: None TECHNIQUE: 50 cc Isovue 370 was administered intravenously. 3D MIP reconstruction performed All CT scans are performed using dose optimization technique as appropriate and may include automated exposure control or mA/KV adjustment according to patient size. FINDINGS: Marked calcified and noncalcified plaque right carotid bulb. Moderate calcified and noncalcified plaque left carotid bulb. Mild plaque within the remainder of common carotid, internal and external carotid arteries. Vertebral arteries are codominant without significant abnormality. No dissection seen IMPRESSION: Severe plaque right carotid bulb resulting in an approximately 85 to 90% stenosis Moderate plaque left carotid bulb resulting in an approximately 50% stenosis NASCET criteria used. Mild 0-49% stenosis Moderate 50-69% stenosis Severe 70-99% stenosis
--- NOTE | 2022-09-03 15:43 | RAD REPORT ---
EXAM DESCRIPTION: CTHead angio09/03/2022 3:16 pm CLINICAL HISTORY: aphasia COMPARISON: None TECHNIQUE: CT angiogram of the head was obtained. 3D MIPS reconstruction performed. All CT scans are performed using dose optimization technique as appropriate and may include automated exposure control or mA/KV adjustment according to patient size. FINDINGS: The basilar, internal carotid, anterior cerebral, middle cerebral and posterior cerebral a rteries do not demonstrate a significant abnormality. No dissection An aneurysm is not seen. A significant stenosis is not noted. IMPRESSION: No acute abnormality is displayed
[2022-09-03] MEDS ORDERED: ACETAMINOPHEN 500 MG TAB ONE (17:36)
[2022-09-03] MEDS ORDERED: ONDANSETRON 4 MG/2 ML VIAL ONE (17:36)
--- NOTE | 2022-09-03 18:48 | RAD REPORT ---
EXAM DESCRIPTION: CT - Head Brain Wo Cont - 09/03/2022 5:59 pm CLINICAL HISTORY: Headache COMPARISON: September 03, 2022 TECHNIQUE: Computed axial tomography of the head was obtained. IV contrast was not requested. All CT scans are performed using dose optimization technique as appropriate and may include automated exposure control or mA/KV adjustment according to patient size. FINDINGS: An intracranial bleed is not seen . The ventricles are normal in caliber. No significant hypodense areas within the brain visualized No extra-axial fluid collection is noted. Fluid again demonstrated within the sinuses which may indicate acute sinusitis IMPRESSION: No acute bleed status post TNK therapy
--- NOTE | 2022-09-03 19:07 | ER ---
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 No eh3 trouble walking, slight slurred speech noted. Coronavirus screen: Vaccine status: Patient reports being unvaccinated. Client denies travel out of the [place] in the last 14 days. At this time, the client does not indicate any symptoms associated with coronavirus-19. Ebola Screen: Patient denies travel to an Ebola-affected area in the 21 days before illness onset. Initial Sepsis Screen: Does the patient meet any 2 criteria? No. Patient's initial sepsis screen is negative. Does the patient have a suspected source of infection? No. Patient's initial sepsis screen is negative. Risk Assessment: Do you want to hurt yourself or someone else? Patient reports no desire to harm self or others. Onset of symptoms was September 03, 2022. 13:42 Method Of Arrival: Wheelchair eh3 13:42 Acuity: JEF 1 eh3 Triage Assessment: 13:55 General: Appears uncomfortable, Behavior is cooperative, appropriate for age. Pain: eh3 Denies pain. EENT: Reports sudden onset double vision. Historical: - Allergies: 13:55 NKDA; eh3 - PMHx: 13:55 Anxiety; Hypertension; Lung Cancer; Vertigo; eh3 - PSHx: 13:55 right upper lube lung removal; eh3 - Immunization history:: Client reports having NOT received the Covid vaccine. - Social history:: Smoking status: Patient/guardian denies using tobacco, the patient reports quitting approximately 5 years ago. Screenin:00 VAN Screening: Arm Drift: Patient shows no arm weakness. Patient is VAN negative. tp1 14:20 Abuse screen: Denies threats or abuse. Denies injuries from another. Nutritional tp1 screening: No deficits noted. Tuberculosis screening: No symptoms or risk factors identified. Patient has been NPO before screening. The patient is alert, able to follow commands. The patient does not exhibit slurred or garbled speech The patient is not exhibiting difficulty speaking. The patient does not exhibit difficulty understanding words. The patient is able to swallow own secretions with no drooling or need for suction. Patient tolerated one teaspoon of water. No drooling, immediate coughing, gurgling, or clearing of the throat was noted. The patient tolerated 90mL of water. No drooling, immediate coughing, gurgling, or clearing of the throat was noted. The patient passed the bedside swallow screening. Oral medications may be given as ordered. Contact Physician for further diet orders. Fall Risk No fall in past 12 months (0 pts). No secondary diagnosis (0 pts). IV access (20 points). Ambulatory Aid- None/Bed Rest/Nurse Assist (0 pts). Gait- Weak (10 pts.). Mental Status- Oriented to own ability (0 pts). Fall Risk Total Irby Fall Scale indicates Low Risk Score (25-44 pts). Fall prevention measures have been instituted. Side Rails Up X 2 Placed close to Nursing Station Frequent Obs/Assesments occuring As available Patient and Family Educated on Fall Prevention Program and strategies. Assessment: 13:50 General: Appears in no apparent distress. uncomfortable, Behavior is calm, cooperative. tp1 Pain: Complains of pain in head Pain does not radiate. Pain currently is 2 out of 10 on a pain scale. at worst was 8 out of 10 on a pain scale. Quality of pain is described as aching, Pain began 2-3 days ago. Neuro: Level of Consciousness is awake, alert, obeys commands, Oriented to person, place, time, situation, Chipper are equal bilaterally Moves all extremities. Gait is unsteady, Speech is normal, Facial symmetry appears normal, Pupils are PERRLA, Intact Reports blurred vision dizziness, headache photophobia. Cardiovascular: Capillary refill < 3 seconds in bilateral fingers Patient's skin is warm and dry. Respiratory: Airway is patent Respiratory effort is even, unlabored. GI: Abdomen is obese, Patient currently denies diarrhea, nausea, vomiting. : No signs and/or symptoms were reported regarding the genitourinary system. EENT: No signs and/or symptoms were reported regarding the EENT system. Derm: Skin is pink, warm \T\ dry. Musculoskeletal: Circulation, motion, and sensation intact. 13:58 Reassessment: Received CT head results from radiologist, no acute findings reported aa5 except sinusitis, Dr. Benítez notified. . 14:00 Reassessment: received VO from DR. Benítez to administer TNK IV X1. tp1 14:50 Reassessment: Patient appears in no apparent distress at this time. No changes from tp1 previously documented assessment. Patient and/or family updated on plan of care and expected duration. Pain level reassessed. Patient is alert, oriented x 3, equal unlabored respirations, skin warm/dry/pink. continues to CO blurred vision, Patient denies pain at this time. 15:29 Reassessment: Patient appears in no apparent distress at this time. No changes from tp1 previously documented assessment. Patient is alert, oriented x 3, equal unlabored respirations, skin warm/dry/pink. continues to CO blurred vision. 15:38 Reassessment: purewick in place. tp1 16:15 Reassessment: Patient appears in no apparent distress at this time. No changes from tp1 previously documented assessment. Patient and/or family updated on plan of care and expected duration. Pain level reassessed. Patient is alert, oriented x 3, equal unlabored respirations, skin warm/dry/pink. 17:01 Reassessment: Patient appears in no apparent distress at this time. Patient is alert, tp1 oriented x 3, equal unlabored respirations, skin warm/dry/pink. CO headache rated 3/10 and nausea. provider notified. 17:56 Reassessment: Patient appears in no apparent distress at this time. Patient is alert, tp1 oriented x 3, equal unlabored respirations, skin warm/dry/pink. states nausea and headache are better. Patient denies pain at this time. 19:00 Reassessment: Patient appears in no apparent distress at this time. No changes from tp1 previously documented assessment. Patient is alert, oriented x 3, equal unlabored respirations, skin warm/dry/pink. Patient denies pain at this time. 20:28 Reassessment: Patient appears in no apparent distress at this time. Patient is alert, tp1 oriented x 3, equal unlabored respirations, skin warm/dry/pink. resting in bed with eyes closed Patient denies pain at this time. 09/04 18:05 Reassessment: patient being admitted per Dr. Gomez. attempted to call report to second kc6 floor. spoke with ROMAINE Goldberg who stated the nurse will call back in 10 minutes. Vital Signs: 09/03 13:42 BP 180 / 80; Pulse 63; Resp 18; Temp 98.6; Pulse Ox 96% on R/A; Weight 90.72 kg; Height eh3 5 ft. 3 in. (160.02 cm); 14:21 BP 161 / 78; Pulse 65; Resp 16; Pulse Ox 99% on R/A; tp1 15:29 BP 154 / 75; Pulse 62; Resp 17; Pulse Ox 95% on R/A; tp1 16:30 BP 163 / 70; Pulse 62; Resp 16; Pulse Ox 97% on R/A; tp1 17:30 BP 165 / 79; Pulse 60; Resp 16; Pulse Ox 97% on R/A; tp1 21:03 BP 149 / 88; Pulse 58; Resp 16; Pulse Ox 91% on R/A; tp1 09/04 00:15 BP 159 / 85; Pulse 62; Resp 16; Pulse Ox 97% on R/A; ll3 19:10 BP 159 / 94; Pulse 72; Resp 23 S; Pulse Ox 92% on R/A; kc6 09/03 13:42 Body Mass Index 35.43 (90.72 kg, 160.02 cm) 3 NIH Stroke Scale Scores: 09/03 14:00 NIHSS Score: 2 tp1 14:25 NIHSS Score: 2 tp1 14:40 NIHSS Score: 1 tp1 14:50 NIHSS Score: 2 kdr 14:55 NIHSS Score: 1 tp1 ED Course: 13:39 Patient arrived in ED. am2 13:39 Scottie Gardner MD is Private Physician. am2 13:46 Rusty Benítez MD is Attending Physician. kdr 13:50 Patient has correct armband on for positive identification. Placed in gown. Bed in low tp1 position. Call light in reach. Side rails up X2. 13:50 Inserted saline lock: 20 gauge in right antecubital area, using aseptic technique. tp1 ,using aseptic technique. inserted by Christina GAVIN Blood collected. 13:53 Arm band placed on Patient placed in an exam room, on a stretcher. 3 13:55 Triage completed. 3 13:55 Inserted saline lock: 20 gauge in left antecubital area, using aseptic technique. tp1 13:55 No provider procedures requiring assistance completed. tp1 13:56 CT Stroke Brain w/o Contrast In Process Unspecified. EDMS 14:00 Kimberly Harris, RN is Primary Nurse. tp1 14:20 Stroke CXR 1 View In Process Unspecified. EDMS 14:34 COVID swab sent to lab. tp1 15:17 CT Head Angio In Process Unspecified. EDMS 15:18 CT Neck Angio In Process Unspecified. EDMS 18:00 CT Head Brain wo Cont In Process Unspecified. EDMS 19:05 Tom Murray MD is Hospitalizing Provider. kdr 09/04 07:09 Primary Nurse role handed off by Kimberly Harris RN bd 07:40 Tano Barraza, ROMAINE is Primary Nurse. jd3 19:10 Patient admitted, IV remains in place. kc 19:11 Primary Nurse role handed off by Tano Barraza, ROMAINE vc1 Administered Medications: 09/03 14:10 Drug: TNK FOR STROKE - Tenecteplase 0.25 mg/kg {Co-Signature: tp1 (Kimberly amin RN).} {Note: 23 mg bolus.} Route: IV; Rate: per protocol; Site: right antecubital; 17:41 Drug: Zofran (Ondansetron) 4 mg Route: IVP; Site: left antecubital; tp1 20:29 Follow up: Response: Nausea is decreased tp1 17:41 Drug: Tylenol 1000 mg Route: PO; tp1 20:29 Follow up: Response: Pain is decreased tp1 Medication: 09/04 05:38 VIS not applicable for this client. ll3 Output: 09/03 15:30 Urine: 800ml; Total: 800ml. tp1 17:08 Urine: 550ml (Voided); Total: 1350ml. tp1 17:57 Urine: 200ml (Voided); Total: 1550ml. tp1 Outcome: 19:07 Decision to Hospitalize by Provider. kdr 09/04 19:09 Admitted to Med/surg accompanied by nurse, room 205, with chart, Report called to joie Burns RN Condition: stable Instructed on the need for admit. 19:13 Patient left the ED. kc6 NIH Stroke Scale - NIH Stroke Score Date: 09/03/2022 Time: 14:00 Total Score = 2 1a. Level of Consciousness (LOC) - 0(Alert) 1b. Level of Consciousness (LOC) (Month \T\ Age) - 0(Both) 1c. LOC Commands (Open \T\ Closes Eyes/Kinesiologist) - 0(Both) 2. Best Gaze (Lateral Gaze Paresis) - 1(Partial gaze palsy) 3. Visual Field Loss - 0(No visual loss) 4. Facial Palsy - 0(Normal) 5a. Left Arm: Motor (10-second hold) - 0(No drift) 5b. Right Arm: Motor (10-second hold) - 0(No drift) 6a. Left Leg: Motor (5-second hold - always test supine) - 0(No drift) 6b. Right Leg: Motor (5-second hold - always test supine) - 0(No drift) 7. Limb Ataxia (finger/nose \T\ heel/reed - test with eyes open) - 1(Present in one limb) 8. Sensory Loss (pinprick arms/legs/face) - 0(Normal) 9. Best Language: Aphasia (description/naming/reading) - 0(No aphasia) 10. Dysarthria (speech clarity - read or repeat words) - 0(Normal) 11. Extinction and Inattention (visual/tactile/auditory/spatial/personal) - 0(No abnormality) Initials: tp1 NIH Stroke Scale - NIH Stroke Score Date: 09/03/2022 Time: 14:25 Total Score = 2 1a. Level of Consciousness (LOC) - 0(Alert) 1b. Level of Consciousness (LOC) (Month \T\ Age) - 0(Both) 1c. LOC Commands (Open \T\ Closes Eyes/Kinesiologist) - 0(Both) 2. Best Gaze (Lateral Gaze Paresis) - 1(Partial gaze palsy) 3. Visual Field Loss - 0(No visual loss) 4. Facial Palsy - 0(Normal) 5a. Left Arm: Motor (10-second hold) - 0(No drift) 5b. Right Arm: Motor (10-second hold) - 0(No drift) 6a. Left Leg: Motor (5-second hold - always test supine) - 0(No drift) 6b. Right Leg: Motor (5-second hold - always test supine) - 0(No drift) 7. Limb Ataxia (finger/nose \T\ heel/reed - test with eyes open) - 1(Present in one limb) 8. Sensory Loss (pinprick arms/legs/face) - 0(Normal) 9. Best Language: Aphasia (description/naming/reading) - 0(No aphasia) 10. Dysarthria (speech clarity - read or repeat words) - 0(Normal) 11. Extinction and Inattention (visual/tactile/auditory/spatial/personal) - 0(No abnormality) Initials: tp1 NIH Stroke Scale - NIH Stroke Score Date: 09/03/2022 Time: 14:40 Total Score = 1 1a. Level of Consciousness (LOC) - 0(Alert) 1b. Level of Consciousness (LOC) (Month \T\ Age) - 0(Both) 1c. LOC Commands (Open \T\ Closes Eyes/Kinesiologist) - 0(Both) 2. Best Gaze (Lateral Gaze Paresis) - 1(Partial gaze palsy) 3. Visual Field Loss - 0(No visual loss) 4. Facial Palsy - 0(Normal) 5a. Left Arm: Motor (10-second hold) - 0(No drift) 5b. Right Arm: Motor (10-second hold) - 0(No drift) 6a. Left Leg: Motor (5-second hold - always test supine) - 0(No drift) 6b. Right Leg: Motor (5-second hold - always test supine) - 0(No drift) 7. Limb Ataxia (finger/nose \T\ heel/reed - test with eyes open) - 0(Absent) 8. Sensory Loss (pinprick arms/legs/face) - 0(Normal) 9. Best Language: Aphasia (description/naming/reading) - 0(No aphasia) 10. Dysarthria (speech clarity - read or repeat words) - 0(Normal) 11. Extinction and Inattention (visual/tactile/auditory/spatial/personal) - 0(No abnormality) Initials: tp1 NIH Stroke Scale - NIH Stroke Score Date: 09/03/2022 Time: 14:50 Total Score = 2 1a. Level of Consciousness (LOC) - 0(Alert) 1b. Level of Consciousness (LOC) (Month \T\ Age) - 0(Both) 1c. LOC Commands (Open \T\ Closes Eyes/Kinesiologist) - 0(Both) 2. Best Gaze (Lateral Gaze Paresis) - 1(Partial gaze palsy) 3. Visual Field Loss - 0(No visual loss) 4. Facial Palsy - 0(Normal) 5a. Left Arm: Motor (10-second hold) - 0(No drift) 5b. Right Arm: Motor (10-second hold) - 0(No drift) 6a. Left Leg: Motor (5-second hold - always test supine) - 0(No drift) 6b. Right Leg: Motor (5-second hold - always test supine) - 0(No drift) 7. Limb Ataxia (finger/nose \T\ heel/reed - test with eyes open) - 1(Present in one limb) 8. Sensory Loss (pinprick arms/legs/face) - 0(Normal) 9. Best Language: Aphasia (description/naming/reading) - 0(No aphasia) 10. Dysarthria (speech clarity - read or repeat words) - 0(Normal) 11. Extinction and Inattention (visual/tactile/auditory/spatial/personal) - 0(No abnormality) Initials: kdr NIH Stroke Scale - NIH Stroke Score Date: 09/03/2022 Time: 14:55 Total Score = 1 1a. Level of Consciousness (LOC) - 0(Alert) 1b. Level of Consciousness (LOC) (Month \T\ Age) - 0(Both) 1c. LOC Commands (Open \T\ Closes Eyes/Kinesiologist) - 0(Both) 2. Best Gaze (Lateral Gaze Paresis) - 1(Partial gaze palsy) 3. Visual Field Loss - 0(No visual loss) 4. Facial Palsy - 0(Normal) 5a. Left Arm: Motor (10-second hold) - 0(No drift) 5b. Right Arm: Motor (10-second hold) - 0(No drift) 6a. Left Leg: Motor (5-second hold - always test supine) - 0(No drift) 6b. Right Leg: Motor (5-second hold - always test supine) - 0(No drift) 7. Limb Ataxia (finger/nose \T\ heel/reed - test with eyes open) - 0(Absent) 8. Sensory Loss (pinprick arms/legs/face) - 0(Normal) 9. Best Language: Aphasia (description/naming/reading) - 0(No aphasia) 10. Dysarthria (speech clarity - read or repeat words) - 0(Normal) 11. Extinction and Inattention (visual/tactile/auditory/spatial/personal) - 0(No abnormality) Initials: tp1 Signatures: Dispatcher [employer] Paige Thomas Kevin, MD MD kdr Quyen Paz RN RN aa5 Christina Kahn RN RN ss Grace Canseco am2 Tano Barraza RN RN jd3 Ronn Garcia RN RN ll3 Kimberly Harris RN RN tp1 Katharine Daniel RN RN vc1 Lulu Queen RN RN eh3 Awilda Mays RN RN kc6 Kimberly Harris RN tp1
--- NOTE | 2022-09-03 19:07 | EDPHYS ---
Physician Documentation [facility] Name: Porsha Fontana Age: 67 yrs Sex: Female : 1955 Arrival Date: 09/03/2022 Time: 13:39 Bed 6 Private MD: Scottie Gardner ED Physician Rusty Benítez HPI: 09/03 19:07 This 67 yrs old Female presents to ER via Wheelchair with complaints of Blurred Vision. kdr 19:07 Patient complained of double vision that started shortly before arrival in the ED. She kdr has not had this before. Patient states that her vision is double particular when she looks to the right.. Onset: The symptoms/episode began/occurred suddenly, just prior to arrival. Severity of symptoms: At their worst the symptoms were mild in the emergency department the symptoms are unchanged. The patient has not experienced similar symptoms in the past. The patient has not recently seen a physician. Historical: - Allergies: 13:55 NKDA; eh3 - PMHx: 13:55 Anxiety; Hypertension; Lung Cancer; Vertigo; eh3 - PSHx: 13:55 right upper lube lung removal; eh3 - Immunization history:: Client reports having NOT received the Covid vaccine. - Social history:: Smoking status: Patient/guardian denies using tobacco, the patient reports quitting approximately 5 years ago. ROS: 19:07 Constitutional: Negative for fever, chills, and weight loss, Eyes: Negative for injury, kdr pain, redness, and discharge, Neck: Negative for injury, pain, and swelling, Cardiovascular: Negative for chest pain, palpitations, and edema, Respiratory: Negative for shortness of breath, cough, wheezing, and pleuritic chest pain, Abdomen/GI: Negative for abdominal pain, nausea, vomiting, diarrhea, and constipation, Back: Negative for injury and pain, : Negative for injury, bleeding, discharge, and swelling, MS/Extremity: Negative for injury and deformity, Skin: Negative for injury, rash, and discoloration, Psych: Negative for depression, anxiety, suicide ideation, homicidal ideation, and hallucinations, Allergy/Immunology: Negative for hives, rash, and allergies, Endocrine: Negative for neck swelling, polydipsia, polyuria, polyphagia, and marked weight changes, Hematologic/Lymphatic: Negative for swollen nodes, abnormal bleeding, and unusual bruising. 19:07 Neuro: Positive for visual changes. Exam: 19:07 Constitutional: This is a well developed, well nourished patient who is awake, alert, kdr and in no acute distress. Head/Face: Normocephalic, atraumatic. Eyes: Pupils equal round and reactive to light, extra-ocular motions intact. Lids and lashes normal. Conjunctiva and sclera are non-icteric and not injected. Cornea within normal limits. Periorbital areas with no swelling, redness, or edema. Neck: Trachea midline, no thyromegaly or masses palpated, and no cervical lymphadenopathy. Supple, full range of motion without nuchal rigidity, or vertebral point tenderness. No Meningismus. Chest/axilla: Normal chest wall appearance and motion. Nontender with no deformity. No lesions are appreciated. Cardiovascular: Regular rate and rhythm with a normal S1 and S2. No gallops, murmurs, or rubs. Normal PMI, no JVD. No pulse deficits. Respiratory: Lungs have equal breath sounds bilaterally, clear to auscultation and percussion. No rales, rhonchi or wheezes noted. No increased work of breathing, no retractions or nasal flaring. Abdomen/GI: Soft, non-tender, with normal bowel sounds. No distension or tympany. No guarding or rebound. No evidence of tenderness throughout. Back: No spinal tenderness. No costovertebral tenderness. Full range of motion. Skin: Warm, dry with normal turgor. Normal color with no rashes, no lesions, and no evidence of cellulitis. MS/ Extremity: Pulses equal, no cyanosis. Neurovascular intact. Full, normal range of motion. Psych: Awake, alert, with orientation to person, place and time. Behavior, mood, and affect are within normal limits. 19:07 Neuro: Orientation: is normal, Mentation: is normal, Memory: is normal, Cranial nerves: normal except Possible 3rd nerve stroke since the patient is not able to look lateral completely to the right, Cerebellar function: is grossly normal, Motor: is normal. Vital Signs: 13:42 BP 180 / 80; Pulse 63; Resp 18; Temp 98.6; Pulse Ox 96% on R/A; Weight 90.72 kg; Height eh3 5 ft. 3 in. (160.02 cm); 14:21 BP 161 / 78; Pulse 65; Resp 16; Pulse Ox 99% on R/A; tp1 15:29 BP 154 / 75; Pulse 62; Resp 17; Pulse Ox 95% on R/A; tp1 16:30 BP 163 / 70; Pulse 62; Resp 16; Pulse Ox 97% on R/A; tp1 17:30 BP 165 / 79; Pulse 60; Resp 16; Pulse Ox 97% on R/A; tp1 21:03 BP 149 / 88; Pulse 58; Resp 16; Pulse Ox 91% on R/A; tp1 09/04 00:15 BP 159 / 85; Pulse 62; Resp 16; Pulse Ox 97% on R/A; ll3 19:10 BP 159 / 94; Pulse 72; Resp 23 S; Pulse Ox 92% on R/A; kc6 09/03 13:42 Body Mass Index 35.43 (90.72 kg, 160.02 cm) eh3 NIH Stroke Scale Scores: 09/03 14:00 NIHSS Score: 2 tp1 14:25 NIHSS Score: 2 tp1 14:40 NIHSS Score: 1 tp1 14:50 NIHSS Score: 2 kdr 14:55 NIHSS Score: 1 tp1 MDM: 19:07 Patient medically screened. kdr 19:07 Data reviewed: vital signs, nurses notes, lab test result(s), radiologic studies. kdr Counseling: I had a detailed discussion with the patient and/or guardian regarding: the historical points, exam findings, and any diagnostic results supporting the discharge/admit diagnosis, lab results, radiology results, the need for further work-up and treatment in the hospital. Physician consultation: Yonis Bauer MD and will see patient in inpatient room, tomorrow. 09/03 13:49 Order name: Basic Metabolic Panel; Complete Time: 15:49 eb 09/03 13:49 Order name: CBC with Diff; Complete Time: 14:36 eb 09/03 13:49 Order name: Hepatic Function; Complete Time: 15:49 eb 09/03 13:49 Order name: High Sensitivity Troponin; Complete Time: 15:49 eb 09/03 13:49 Order name: Magnesium; Complete Time: 15:49 eb 09/03 13:49 Order name: Protime (+inr); Complete Time: 14:36 eb 09/03 13:49 Order name: Ptt, Activated; Complete Time: 14:36 eb 09/03 13:49 Order name: SARS RAPID; Complete Time: 15:49 eb 09/03 14:27 Order name: Glucose, Ancillary Testing; Complete Time: 14:36 EDMS 09/04 03:51 Order name: CBC with Automated Diff; Complete Time: 18:04 EDMS 09/04 04:49 Order name: Basic Metabolic Panel; Complete Time: 18:04 EDMS 09/04 04:49 Order name: Phosphorus; Complete Time: 18:04 EDMS 09/04 04:49 Order name: Lipid Profile; Complete Time: 18:04 EDMS 09/04 04:49 Order name: Magnesium; Complete Time: 18:04 EDMS 09/03 13:49 Order name: CT Stroke Brain w/o Contrast; Complete Time: 14:36 eb 09/03 13:49 Order name: Stroke CXR 1 View; Complete Time: 14:36 eb 09/03 13:49 Order name: EKG; Complete Time: 13:50 eb 09/03 13:49 Order name: Accucheck; Complete Time: 14:19 eb 09/03 13:49 Order name: Cardiac monitoring; Complete Time: 14:18 eb 09/03 13:49 Order name: EKG - Nurse/Tech; Complete Time: 14:18 eb 09/03 14:17 Order name: CT Head Angio; Complete Time: 15:49 eb 09/03 14:23 Order name: CT Neck Angio; Complete Time: 15:49 eb 09/03 17:28 Order name: CT Head Brain wo Cont; Complete Time: 18:55 kdr 09/04 04:49 Order name: Thyroid Stimulating Hormone; Complete Time: 18:04 EDOR 09/04 09:07 Order name: MRI; Complete Time: 18:04 EDOR 09/04 09:08 Order name: MRI; Complete Time: 18:04 EDOR 09/04 09:09 Order name: MRI; Complete Time: 18:04 EDOR 09/03 13:49 Order name: IV Saline Lock; Complete Time: 14:18 eb 09/03 13:49 Order name: Labs collected and sent; Complete Time: 14:18 eb 09/03 13:49 Order name: NPO; Complete Time: 14:18 eb 09/03 13:49 Order name: O2 Per Protocol; Complete Time: 14:18 eb 09/03 13:49 Order name: O2 Sat Monitoring; Complete Time: 14:18 eb 09/03 13:49 Order name: Stroke Swallow Screen; Complete Time: 14:20 eb Administered Medications: 14:10 Drug: TNK FOR STROKE - Tenecteplase 0.25 mg/kg {Co-Signature: tp1 (Kimberly amin RN).} {Note: 23 mg bolus.} Route: IV; Rate: per protocol; Site: right antecubital; 17:41 Drug: Zofran (Ondansetron) 4 mg Route: IVP; Site: left antecubital; tp1 20:29 Follow up: Response: Nausea is decreased tp1 17:41 Drug: Tylenol 1000 mg Route: PO; tp1 20:29 Follow up: Response: Pain is decreased tp1 Disposition Summary: 09/03/22 19:07 Hospitalization Ordered Hospitalization Status: Inpatient Admission kdr Provider: Tom Murray Condition: Serious kdr Problem: new kdr Symptoms: have improved kdr Bed/Room Type: Standard kdr Location: Telemetry/MedSurg (Inpatient)(09/04/22 17:39) bd Room Assignment: 205(09/04/22 17:39) bd Diagnosis - Acute stroke kdr Forms: - Medication Reconciliation Form kdr - SBAR form kdr NIH Stroke Scale - NIH Stroke Score Date: 09/03/2022 Time: 14:00 Total Score = 2 1a. Level of Consciousness (LOC) - 0(Alert) 1b. Level of Consciousness (LOC) (Month \T\ Age) - 0(Both) 1c. LOC Commands (Open \T\ Closes Eyes/[employer]) - 0(Both) 2. Best Gaze (Lateral Gaze Paresis) - 1(Partial gaze palsy) 3. Visual Field Loss - 0(No visual loss) 4. Facial Palsy - 0(Normal) 5a. Left Arm: Motor (10-second hold) - 0(No drift) 5b. Right Arm: Motor (10-second hold) - 0(No drift) 6a. Left Leg: Motor (5-second hold - always test supine) - 0(No drift) 6b. Right Leg: Motor (5-second hold - always test supine) - 0(No drift) 7. Limb Ataxia (finger/nose \T\ heel/reed - test with eyes open) - 1(Present in one limb) 8. Sensory Loss (pinprick arms/legs/face) - 0(Normal) 9. Best Language: Aphasia (description/naming/reading) - 0(No aphasia) 10. Dysarthria (speech clarity - read or repeat words) - 0(Normal) 11. Extinction and Inattention (visual/tactile/auditory/spatial/personal) - 0(No abnormality) Initials: tp1 NIH Stroke Scale - NIH Stroke Score Date: 09/03/2022 Time: 14:25 Total Score = 2 1a. Level of Consciousness (LOC) - 0(Alert) 1b. Level of Consciousness (LOC) (Month \T\ Age) - 0(Both) 1c. LOC Commands (Open \T\ Closes Eyes/[employer]) - 0(Both) 2. Best Gaze (Lateral Gaze Paresis) - 1(Partial gaze palsy) 3. Visual Field Loss - 0(No visual loss) 4. Facial Palsy - 0(Normal) 5a. Left Arm: Motor (10-second hold) - 0(No drift) 5b. Right Arm: Motor (10-second hold) - 0(No drift) 6a. Left Leg: Motor (5-second hold - always test supine) - 0(No drift) 6b. Right Leg: Motor (5-second hold - always test supine) - 0(No drift) 7. Limb Ataxia (finger/nose \T\ heel/reed - test with eyes open) - 1(Present in one limb) 8. Sensory Loss (pinprick arms/legs/face) - 0(Normal) 9. Best Language: Aphasia (description/naming/reading) - 0(No aphasia) 10. Dysarthria (speech clarity - read or repeat words) - 0(Normal) 11. Extinction and Inattention (visual/tactile/auditory/spatial/personal) - 0(No abnormality) Initials: tp1 NIH Stroke Scale - NIH Stroke Score Date: 09/03/2022 Time: 14:40 Total Score = 1 1a. Level of Consciousness (LOC) - 0(Alert) 1b. Level of Consciousness (LOC) (Month \T\ Age) - 0(Both) 1c. LOC Commands (Open \T\ Closes Eyes/[employer]) - 0(Both) 2. Best Gaze (Lateral Gaze Paresis) - 1(Partial gaze palsy) 3. Visual Field Loss - 0(No visual loss) 4. Facial Palsy - 0(Normal) 5a. Left Arm: Motor (10-second hold) - 0(No drift) 5b. Right Arm: Motor (10-second hold) - 0(No drift) 6a. Left Leg: Motor (5-second hold - always test supine) - 0(No drift) 6b. Right Leg: Motor (5-second hold - always test supine) - 0(No drift) 7. Limb Ataxia (finger/nose \T\ heel/reed - test with eyes open) - 0(Absent) 8. Sensory Loss (pinprick arms/legs/face) - 0(Normal) 9. Best Language: Aphasia (description/naming/reading) - 0(No aphasia) 10. Dysarthria (speech clarity - read or repeat words) - 0(Normal) 11. Extinction and Inattention (visual/tactile/auditory/spatial/personal) - 0(No abnormality) Initials: tp1 NIH Stroke Scale - NIH Stroke Score Date: 09/03/2022 Time: 14:50 Total Score = 2 1a. Level of Consciousness (LOC) - 0(Alert) 1b. Level of Consciousness (LOC) (Month \T\ Age) - 0(Both) 1c. LOC Commands (Open \T\ Closes Eyes/[employer]) - 0(Both) 2. Best Gaze (Lateral Gaze Paresis) - 1(Partial gaze palsy) 3. Visual Field Loss - 0(No visual loss) 4. Facial Palsy - 0(Normal) 5a. Left Arm: Motor (10-second hold) - 0(No drift) 5b. Right Arm: Motor (10-second hold) - 0(No drift) 6a. Left Leg: Motor (5-second hold - always test supine) - 0(No drift) 6b. Right Leg: Motor (5-second hold - always test supine) - 0(No drift) 7. Limb Ataxia (finger/nose \T\ heel/reed - test with eyes open) - 1(Present in one limb) 8. Sensory Loss (pinprick arms/legs/face) - 0(Normal) 9. Best Language: Aphasia (description/naming/reading) - 0(No aphasia) 10. Dysarthria (speech clarity - read or repeat words) - 0(Normal) 11. Extinction and Inattention (visual/tactile/auditory/spatial/personal) - 0(No abnormality) Initials: [facility] NIH Stroke Scale - NIH Stroke Score Date: 09/03/2022 Time: 14:55 Total Score = 1 1a. Level of Consciousness (LOC) - 0(Alert) 1b. Level of Consciousness (LOC) (Month \T\ Age) - 0(Both) 1c. LOC Commands (Open \T\ Closes Eyes/[employer]) - 0(Both) 2. Best Gaze (Lateral Gaze Paresis) - 1(Partial gaze palsy) 3. Visual Field Loss - 0(No visual loss) 4. Facial Palsy - 0(Normal) 5a. Left Arm: Motor (10-second hold) - 0(No drift) 5b. Right Arm: Motor (10-second hold) - 0(No drift) 6a. Left Leg: Motor (5-second hold - always test supine) - 0(No drift) 6b. Right Leg: Motor (5-second hold - always test supine) - 0(No drift) 7. Limb Ataxia (finger/nose \T\ heel/reed - test with eyes open) - 0(Absent) 8. Sensory Loss (pinprick arms/legs/face) - 0(Normal) 9. Best Language: Aphasia (description/naming/reading) - 0(No aphasia) 10. Dysarthria (speech clarity - read or repeat words) - 0(Normal) 11. Extinction and Inattention (visual/tactile/auditory/spatial/personal) - 0(No abnormality) Initials: tp1 Signatures: Dispatcher [employer] EDMS Paige Foster Kevin, MD MD [facility] Christina Kahn RN RN ss Garcia, Cindy, RN RN cg Botello, Elizabeth eb Parker, Tiffany, RN RN tp1 Lulu Queen RN RN 3 Jennifer Poon PA-C PA-C sb4 Kimberly Harris RN tp1 Corrections: (The following items were deleted from the chart) 21:55 19:07 Telemetry/MedSurg (Inpatient) [facility] cg 21:55 19:07 [facility] cg 09/04 17:39 09/03 21:55 BR ER HOLD cg bd 09/04 17:39 09/03 21:55 ERHOLD- bd
--- NOTE | 2022-09-03 19:52 | P.HP ---
Certification for Inpatient Patient admitted to: Observation With expected LOS: <2 Midnights Patient will require the following post-hospital care: None Practitioner: I am a practitioner with admitting privileges, knowledge of patient current condition, hospital course, and medical plan of care. 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 She was given TNK in the ED. Her head CT was negative. Head/neck CT angio showed "Severe plaque right carotid bulb resulting in an approximately 85 to 90% stenosis. Moderate plaque left carotid bulb resulting in an approximately 50% stenosis." Following TNK, she complained of headache so additional CT brain was obtained which was negative for acute bleed. Her labs are unremarkable. Patient states her symptoms have resolved during my assessment. NIHSS 0, was 2 upon presentation. She passed bedside swallow. She is admitted for further management. Allergies latex Allergy (Verified 12/29/20 10:52) blisters [id number] Reductase Inhibitor Adverse Reaction (Intermediate, Verified 09/03/22 21:05) Home medications list reviewed: Yes Home Medications: Albuterol Sulfate [Proair Hfa] 2 puff IH QIDP PRN 12/29/20 Ergocalciferol (Vitamin D2) [Vitamin D2] 50,000 unit PO EVERY 7TH DAY 12/29/20 Fluticasone [Flonase 50mcg Nasal [place]] 2 sprays NS DAILY PRN 12/29/20 Meclizine HCl 25 mg PO BID 12/29/20 Metoprolol Tartrate [Lopressor] 50 mg PO BID 12/29/20 Ondansetron [Zofran] 4 mg PO Q6H PRN 12/29/20 - Past Medical/Surgical History Diabetic: No -: Hypertension -: Lung Cancer -: Right upper lobectomy -: Hysterectomy Psychosocial/ Personal History: Patient is . - Family History Brother -: Cancer Father -: Heart disease Sister -: Cancer - Social History Smoking Status: Former smoker Alcohol use: No CD- Drugs: No Caffeine use: Yes Place of Residence: Home Review of Systems Neurological: Change in Speech, Other (Double Vision) Physical Examination - Physical Exam General: Alert, In no apparent distress, Oriented x3 HEENT: Atraumatic, PERRLA, EOMI, Sclerae nonicteric Neck: Supple, 2+ carotid pulse no bruit, No LAD, Without JVD or thyroid abnormality Respiratory: Clear to auscultation bilaterally, Normal air movement Cardiovascular: Regular rate/rhythm, Normal S1 S2 Gastrointestinal: Normal bowel sounds, No tenderness Musculoskeletal: No tenderness Integumentary: No rashes Neurological: Normal gait, Normal speech, Normal strength at 5/5 x4 extr, Sensation intact, Normal affect - Studies Laboratory Data (last 24 hrs) 09/03/22 14:00: PT 10.4, INR 0.95, APTT 33.5 09/03/22 14:00: WBC 8.40, Hgb 13.7, Hct 41.2, Plt Count 291 09/03/22 14:00: Sodium 135 L, Potassium 4.1, BUN 24 H, Creatinine 1.09, Glucose 103, Magnesium 2.3, Total Bilirubin 0.3, AST 12 L, ALT 20, Alkaline Phosphatase 146 H Assessment and Plan - Problems (Diagnosis) (1) Acute CVA (cerebrovascular accident) Current Visit: Yes Status: Acute (2) Hypertension Current Visit: Yes Status: Chronic Qualifiers: Hypertension type: primary hypertension Qualified Code(s): I10 - Essential (primary) hypertension - Plan -Patient is admitted to ICU for observation after receiving TNK -MRI stroke protocol and echo ordered for morning -Neurology consult -Folic acid daily. Patient reports statin allergy- myopathies and lethargy. Aspirin daily on discharge. -Lipid panel and TSH ordered -Physical therapy and speech therapy consult -Monitor and replete electrolytes per protocol -Reconcile and continue home medications -Full code Discharge Plan: Home Plan to discharge in: 24 Hours - Advance Directives Does patient have a Living Will: No Does patient have a Durable POA for Healthcare: No - Code Status/Comfort Care Code Status Assessed: Yes (Full) Critical Care: No Time Spent Managing Pts Care (In Minutes): 50
[2022-09-04] MEDS ORDERED: ATORVASTATIN 40 MG TAB PO SCH (00:16)
[2022-09-04] MEDS: NA CHLORIDE 0.9% 1,000 ML IV SCH ×2 (00:16→13:36)
[2022-09-04] MEDS ORDERED: ONDANSETRON 4 MG/2 ML VIAL ONE ×2 (02:00→16:39)
[2022-09-04] MEDS ORDERED: NA CHLORIDE 0.9% 1,000 ML ONE (02:00)
[2022-09-04] MEDS ORDERED: ATORVASTATIN 20 MG TAB ONE (02:00)
[2022-09-04] MEDS: ONDANSETRON 4 MG/2 ML VIAL IV PRN ×2 (02:14→16:45)
[2022-09-04 03:49] LABS: Absolute Lymphocytes (CBC) 1.6 K/uL (0.7-4.9); Hematocrit 41.3 % (36.0-45.0); Lymphocytes % 19.1 % (15.3-44.8); MCV 88.2 fL (80-100); MPV 10.6 fL (7.6-11.3); RBC Red Blood Cell Count 4.68 M/uL (3.86-4.86)
[2022-09-04 04:48] LABS: Magnesium 2.5 mg/dL (1.8-2.4); Phosphorus 3.4 mg/dL (2.5-4.9); Potassium 3.8 mmol/L (3.5-5.1); Thyroid Stimulating Hormone 1.77 uIU/mL (0.360-3.740)
[2022-09-04 05:32] VITALS: BMI 35.4
[2022-09-04] MEDS ORDERED: FOLIC ACID 1 MG TABLET ONE (08:36)
[2022-09-04] MEDS: FOLIC ACID 1 MG TABLET PO SCH (08:39)
--- NOTE | 2022-09-04 09:06 | RAD REPORT ---
EXAM DESCRIPTION: MRI - Brain W/Wo Cont - 09/04/2022 8:54 am CLINICAL HISTORY: Blurred vision COMPARISON: head CT September 03, 2022 TECHNIQUE: Axial, sagittal, and coronal magnetic images of the brain were obtained. 20 cc MultiHance administered intravenously FINDINGS: Mild signal within periventricular, deep and subcortical white matter probably ischemic c hanges secondary to small vessel disease The ventricles are normal in caliber. Diffusion-weighted/ ADC mapping sequences do not demonstrate evidence of an acute infarction. No abnormal enhancement within the brain is seen. An extra-axial fluid collection is not noted. Right maxillary ethmoid sinusitis IMPRESSION: No acute intracranial abnormality displayed
--- NOTE | 2022-09-04 09:07 | RAD REPORT ---
EXAM DESCRIPTION: MRI - MRA Head Wo Cont - 09/04/2022 8:53 am CLINICAL HISTORY: Blurred vision COMPARISON: CT September 03, 2022 TECHNIQUE: Magnetic resonance angiogram was performed. 3D MIPS reconstruction performed FINDINGS: The anterior cerebral, middle cerebral, posterior cerebral, distal internal carotid and ba silar arteries do not demonstrate a significant stenosis. An aneurysm is not displayed. IMPRESSION: No acute abnormality is displayed
--- NOTE | 2022-09-04 09:08 | RAD REPORT ---
EXAM DESCRIPTION: MRI - MRA Neck W/Wo Cont - 09/04/2022 8:54 am CLINICAL HISTORY: Blurred vision COMPARISON: CT September 03, 2022 TECHNIQUE: Magnetic resonance angiogram of the neck was performed. 19 cc MultiHance was administered intravenously. 3D MIPS reconstruction performed FINDINGS: Marked plaque right carotid bulb. Moderate plaque left carotid bulb. Common, internal and external carotid arteries demonstrate mild plaque. The vertebral arteries are codominant. No dissection seen IMPRESSION: Severe plaque right carotid bulb appears to result in an approximately 80% stenosis. Moderate plaque left carotid bulb appears to result in an approximately 50% stenosis NASCET criteria used. Mild 0-49% stenosis Moderate 50-69% stenosis Severe 70-99% stenosis
[2022-09-04] MEDS ORDERED: ACETAMINOPHEN 500 MG TAB ONE (10:40)
[2022-09-04] MEDS: ACETAMINOPHEN 500 MG TAB PO PRN (10:43)
--- NOTE | 2022-09-04 15:58 | EKG ---
Test Date: 2022-09-03 Test Time: 14:06:20 Centrifugal Supervisor: DEMAR MEASUREMENT RESULTS: Intervals: Rate: 62 AK: 150 QRSD: 80 QT: 436 QTc: 442 Admire: P: 68 AK: 150 QRS: 48 T: 69 INTERPRETIVE STATEMENTS: Normal sinus rhythm Normal ECG Compared to ECG 05/27/2022 21:20:34 Sinus arrhythmia no longer present Electronically Signed On 09-04-22 15:56:36 CDT by Nahid Ramos
[2022-09-04] MEDS ORDERED: CLOPIDOGREL 75 MG TABLET PO ONE (16:30)
[2022-09-04] MEDS ORDERED: CLOPIDOGREL 75 MG TABLET ONE (16:39)
--- NOTE | 2022-09-04 16:39 | P.DS ---
Discharge Date: 09/04/22 Disposition: ROUTINE DISCHARGE Discharge Condition: GOOD Reason for Admission: Acute CVA Brief History of Present Illness: Patient is a 67 year old female with history of hypertension and lung cancer s/p right upper lobectomy who presented to the ED with sudden onset double vision and mildly slurred speech 90 minutes [employer]. She was given TNK in the ED. Her head CT was negative. Head/neck CT angio showed "Severe plaque right carotid bulb resulting in an approximately 85 to 90% stenosis. Moderate plaque left carotid bulb resulting in an approximately 50% stenosis." Following TNK, she complained of headache so additional CT brain was obtained which was negative for acute bleed. Her labs are unremarkable. Patient states her symptoms have resolved during my assessment. NIHSS 0, was 2 upon presentation. She passed bedside swallow. She is admitted for further management. Hospital Course: Patient's MRI was negative. Patient does have carotid artery stenosis. Patient needs to follow-up with neurology and cardiology. Patient had [id number] will need to follow-up with ophthalmology. We will go ahead and put patient on antiplatelet therapy and therapy for LDL-Zetia. Patient is allergic to statin therapy. Her LDL is increased to 170. At this time, patient is stable for discharge home. Vital Signs/Physical Exam: Temp Pulse Resp BP Pulse Ox 98.6 F 64 20 113/56 L 96 09/04/22 04:00 09/04/22 12:00 09/04/22 12:00 09/04/22 12:00 09/04/22 12:00 General: Alert, In no apparent distress, Oriented x3 Laboratory Data at Discharge: WBC 8.40 K/uL (4.3-10.9) 09/04/22 02:48 Hgb 13.8 g/dL (12.0-15.0) 09/04/22 02:48 Hct 41.3 % (36.0-45.0) 09/04/22 02:48 Plt Count 264 K/uL (152-406) 09/04/22 02:48 PT 10.4 SECONDS (9.5-12.5) 09/03/22 14:00 INR 0.95 09/03/22 14:00 APTT 33.5 SECONDS (24.3-36.9) 09/03/22 14:00 Sodium 138 mmol/L (136-145) 09/04/22 02:48 Potassium 3.8 mmol/L (3.5-5.1) 09/04/22 02:48 BUN 19 mg/dL (7-18) H 09/04/22 02:48 Creatinine 1.03 mg/dL (0.55-1.3) 09/04/22 02:48 Glucose 106 mg/dL (74-106) 09/04/22 02:48 Phosphorus 3.4 mg/dL (2.5-4.9) 09/04/22 02:48 Magnesium 2.5 mg/dL (1.8-2.4) H 09/04/22 02:48 Total Bilirubin 0.3 mg/dL (0.2-1.0) 09/03/22 14:00 AST 12 U/L (15-37) L 09/03/22 14:00 ALT 20 U/L (12-78) 09/03/22 14:00 Alkaline Phosphatase 146 U/L (45-117) H 09/03/22 14:00 Triglycerides 313 mg/dL (<150) H 09/04/22 02:48 Cholesterol 269 mg/dL (<200) H 09/04/22 02:48 HDL Cholesterol 36 mg/dL (40-60) L 09/04/22 02:48 Cholesterol/HDL Ratio 7.47 09/04/22 02:48 Home Medications: Albuterol Sulfate [Proair Hfa] 2 puff IH QIDP PRN 12/29/20 Ergocalciferol (Vitamin D2) [Vitamin D2] 50,000 unit PO EVERY 7TH DAY 12/29/20 Fluticasone [Flonase 50MCG Nasal [place]*] 2 sprays NS DAILY PRN 12/29/20 Meclizine HCl 25 mg PO BID 12/29/20 Metoprolol Tartrate [Lopressor*] 50 mg PO BID 12/29/20 Ondansetron [Zofran (Odt)*] 4 mg PO Q6H PRN 12/29/20 Aspirin [Aspirin EC 81 MG] 162 mg PO DAILY #60 tab 09/04/22 Clopidogrel Bisulfate [Plavix] 75 mg PO DAILY #30 tab 09/04/22 Escitalopram Oxalate [Lexapro] 10 mg PO DAILY #30 tab 09/04/22 Ezetimibe [Zetia*] 10 mg PO BEDTIME #30 tab 09/04/22 Folic Acid 1 mg PO DAILY #30 tab 09/04/22 New Medications: Aspirin [Aspirin EC 81 MG] 162 mg PO DAILY #60 tab Folic Acid 1 mg PO DAILY #30 tab Escitalopram Oxalate [Lexapro] 10 mg PO DAILY #30 tab Clopidogrel Bisulfate [Plavix] 75 mg PO DAILY #30 tab Ezetimibe [Zetia*] 10 mg PO BEDTIME #30 tab Physician Discharge Instructions: -DC IV and DC home -Follow-up with PCP in 1 to 2 weeks -Follow-up with Neurology in 1 to 2 weeks -Follow-up with cardiology for carotid artery stenosis. -Follow-up with Ophthamology for diplopia -Please call Dr. Gomez at [phone] if any questions regarding hospital stay -Please call nursing station at [phone] if any nursing or medication questions -Return to the emergency room if symptoms worsen Diet: AHA Activity: Fall precautions Followup: Yonis Bauer MD [ASSOCIATE-ACTIVE - CAN ADMIT] - Logan Marques MD [OUTSIDE PHYSICIAN] - Marisol Cruz MD [ACTIVE - CAN ADMIT] - Scottie Gardner MD [Primary Care Provider] - Time spent managing pt's care (in minutes): 35
[2022-09-04] MEDS ORDERED: ASPIRIN EC 81 MG TAB PO ONE ×2 (17:00→17:19)
[2022-09-04] MEDS ORDERED: LORazepam 2 MG/ML VIAL ONE (17:48)
[2022-09-04] MEDS ORDERED: LORazepam 2 MG/ML VIAL IV ONE (17:58)
[2022-09-04] MEDS ORDERED: EZETIMIBE 10 MG TAB PO SCH (21:00)
--- NOTE | 2022-09-05 00:56 | CON ---
Reason For Consultation: Consultation called because of stroke status post TNKs. History Of Present Illness: is a 67-year-old right-handed patient with hypertension, lung cancer, and had a right lobectomy who comes to [facility] with sudden onset of double vision when looking to the left and slurred speech. Symptom onset was about 90 minutes before she was at [facility] and had an evaluation where her initial head CT scan was negative. She was given TNKs and her subsequent CT angiogram identified severe plaque in the right carotid bulb resulting in about 85% to 95% stenosis. The left carotid bulb was around 50% stenosis. She did have a headache f ollowing the TNKs and she had an additional head CT scan, which showed no acute ischemic or hemorrhag ic findings. The patient did have resolution of her symptoms and was from an NIH score of 2 down to 0. Her subsequent brain MRI done earlier today showed no acute ischemic or hemorrhagic change. MRA of the head and neck confirmed findings on the CT scan as mentioned. The patient did return again to her baseline level of functioning. Past Medical History: As noted. Past Surgical History: Right lobectomy and hysterectomy. Allergies: LATEX AND STATINS. Medications: ProAir HFA 2 puffs 4 hours as needed, vitamin D 250,000 units every 7 days, Flonase 2 s prays per nostril daily, meclizine 25 mg twice daily as needed, Lopressor 50 mg twice daily, and Zofr an 4 mg every 6 hours as needed. Family History: Cancer in the brother, heart disease in father, possible cancer in sisters. Social History: Smoked in the past. No recent tobacco or IV drug use. Review of Systems: Aside from the double vision and slurred speech, she denies any recent fevers, chills, nausea, vomiti ng, myalgias, arthralgias, rash, headache, weight change, or psychiatric issues. Physical Examination: Vital Signs: Blood pressure 159/94, temperature afebrile, pulse ranged 64-72, oxygen saturation 96%. General: Ms. Fontana is lying in bed in the emergency room, in no acute distress. HEENT: She is normocephalic, atraumatic. Sclerae anicteric. Oropharynx is pink and moist. Neck: Supple. Chest: Clear. Heart: Regular. Extremities: No clubbing, cyanosis, or edema. Neurologic: Alert and oriented to person, place, time, and situation. She follows commands appropri ately. She has no cranial nerve deficits. She has no focal sensory, coordination, reflex or gait ab normalities. Laboratory Studies: Complete blood count with differential is normal. Coagulation panel: INR 0.95. Chemistries initially showed slightly low sodium of 135, but subsequently today after hydration is normal and creatinine 1.03. Her total cholesterol elevated at 269, LDL cholesterol is elevated at 17 0, HDL low at 36. TSH normal at 1.770. Liver function studies show elevated alkaline phosphate of 1 42. Magnesium earlier today was elevated to 2.5. COVID-19 testing is negative. Her electrocardiogr am shows normal sinus rhythm and is a normal study. Chest x-ray unremarkable. Assessment: Ms. Fontana is a 67-year-old patient with stroke producing slurred speech and some diffic ulty with vision. She has had TNKs with complete resolution of her symptoms and MRI of the brain leonila wing no residual abnormalities. She does have high-grade stenosis in the proximal right carotid bulb and moderate stenosis in the left carotid bulb. Plan: 1.High-dose statin, given her dyslipidemia. Also Plavix 75 mg, aspirin 81 mg, and folic acid 1 mg. 2.She should be seen in [place] for possible interventional procedure to open the right carotid sten osis. 3.She was counseled on changing diet and exercise to reduce the risk of additional strokes. 4.She will be discharged today and follow up in Dr. Bauer's clinic within a month. NOBLE/CECIL Voice ID: [id number] Report ID: [id number]
[2022-09-05] MEDS: NA CHLORIDE 0.9% 1,000 ML IV SCH ×2 (02:56→03:36)
[2022-09-05] MEDS: ACETAMINOPHEN 500 MG TAB PO PRN ×2 (03:35→08:22)
[2022-09-05 06:31] LABS: Potassium 3.7 mmol/L (3.5-5.1)
--- NOTE | 2022-09-05 06:36 | ECHO ---
HEIGHT: 5 ft 3 in WEIGHT: 200 lb 0 oz DATE OF STUDY: 09/04/[address]: Jennifer Poon 2-DIMENSIONAL: YES M.MODE: YES DOPPLER: YES COLOR FLOW: YES TDS: PORTABLE: YES DEFINITY: BUBBLE STUDY: DIAGNOSIS: STROKE CARDIAC HISTORY: CATHERIZATION: NO SURGERY: NO PROSTHETIC VALVE: NO PACEMAKER: NO MEASUREMENTS (cm) DIASTOLIC (NORMALS) SYSTOLIC (NORMALS) IVSd 1.1 (0.6-1.2) LA Diam 3.3 (1.9-4.0) LVEF 67% LVIDd 4.0 (3.5-5.7) LVIDs 2.5 (2.0-3.5) %FS 37% LVPWd 1.2 (0.6-1.2) Ao Diam 2.6 (2.0-3.7) 2 DIMENSIONAL ASSESSMENT: RIGHT ATRIUM: NORMAL LEFT ATRIUM: NORMAL RIGHT VENTRICLE: NORMAL LEFT VENTRICLE: NORMAL TRICUSPID VALVE: MILD TRICUSPID REGURGITATION MITRAL VALVE: MITRAL ANNULAR CALCIFICATION WITH MILD MITRAL REGURGITATION PULMONIC VALVE: NORMAL AORTIC VALVE: NORMAL PERICARDIAL EFFUSION: NONE AORTIC ROOT: NORMAL LEFT VENTRICULAR WALL MOTION: NORMAL DOPPLER/COLOR FLOW: SEE BELOW COMMENTS: NORMAL LEFT VENTRICULAR EJECTION FRACTION 60-65%. NORMAL WALL MOTION. MITRAL ANNULAR CALCIFICATION WITH MILD MITRAL REGURGITATION. TECHNOLOGIST: MARIANN GUZMAN
[2022-09-05] MEDS: FOLIC ACID 1 MG TABLET PO SCH (08:22)
[2022-09-05] MEDS ORDERED: POTASSIUM CL SA 10 MEQ TAB PO ONE (09:00)
[2022-09-05] MEDS ORDERED: METOPROLOL TAR 50 MG TAB PO ONE (10:36)
[2022-09-05] MEDS ORDERED: ALPRAZOLAM 0.5 MG TABLET PO ONE (11:43)
[2022-09-05 12:38] VITALS: O2SAT 98
[2022-09-05] MEDS ORDERED: LOSARTAN POTASSIUM 50 MG TABLET PO SCH (12:51)
[2022-09-05 13:20] VITALS: TEMP 97.6
[2022-09-05 14:31] VITALS: BP 155/85
[2022-09-05] MEDS ORDERED: ASPIRIN EC 81 MG TAB PO ONE (16:18)
[2022-09-05] MEDS ORDERED: METOPROLOL TAR 50 MG TAB PO SCH (21:00)
[2022-09-06] MEDS ORDERED: LOSARTAN POTASSIUM 50 MG TABLET PO SCH (09:00)
== END 2022-09-05 16:04 | disposition home or self-care (01) | DRG 63 ==
LOC: ER 13:38 → ERHOLD 19:42 → 2ND 09-04 18:35 → OBSVTOIN 09-05 09:13
PROVIDERS: ADMIT Hospitalist; ATTEND Hospitalist
DX: I63.9 Cerebral infarction, unspecified (principal); I10 Essential (primary) hypertension; E78.5 Hyperlipidemia, unspecified; H53.2 Diplopia; I65.21 Occlusion and stenosis of right carotid artery; R47.81 Slurred speech; R29.702 NIHSS score 2; Z90.2 Acquired absence of lung [part of]; Z88.8 Allergy status to other drugs, medicaments and biological substances; Z79.82 Long term (current) use of aspirin; Z79.02 Long term (current) use of antithrombotics/antiplatelets; Z79.899 Other long term (current) drug therapy; Z91.040 Latex allergy status; Z85.118 Personal history of other malignant neoplasm of bronchus and lung; Z28.310 Unvaccinated for COVID-19; Z90.710 Acquired absence of both cervix and uterus; Z87.891 Personal history of nicotine dependence; Z20.822 Contact with and (suspected) exposure to COVID-19
CPT/HCPCS: 36415; 70450; 70496; 70498; 70544; 70549; 70553; 71045; 80048; 80061; 80076; 82947; 83735; 84100; 84443; 84484; 85025; 85610; 85730; 87811; 92523; 92977; 93005; 93306; 97129; 97161; 99291; 99292; A9577; G0378; J2405; J3101; J7030; Q9967

== ENCOUNTER 2023-07-20 16:37 | Emergency (ER) | payer OTHER ==
--- OUTSIDE RECORDS SUMMARY | 2023-07-20 16:41 | XMS REPORT | Continuity of Care Document ---
:1955 Author Organization [facility] t Address [address] [facility] [place] [address] Support Name Relationship Address Phone Rush Redd Domestic partner Unavailable [phone] BETTYE NEAL, JACQUE Emergency Provider [address] [facility] [phone] [place] [address] OTHER, ENTER NAME IN Primary Care Physician Unavailable Unav ailable NOTES Gallo EASON Primary Care Physician [address] [place] [address] MD AVANI DUNBARTYLER Emergency Provider [address] [place] [address] [place] [address] STEVE ORNELASA Family Member [address] [place] [address] NEFTALI ORNELASNDA Child [address] [place] [address] MD JANNET ISBELL Emergency Provider [facility] [place] [address] Care Team Providers Name Role Phone Scottie Gardner MD Primary Care Physician SIXTO UMAÑA Attending Clinician Unavailable JANNET ISBELL Attending Clinician Unavailable ZOHREH RAMIREZ Attending Clinician Unavailable Dimple Garcia MA Attending Clinician Unavailable BRIAN Attending Clinician Unavailable Provider , Not In System Attending Clinician Unavailable Tim Attending Clinician Unavailable CARLA RAMOS Attending Clinician Unavailable MD CARLA RAMOS Attending Clinician Unavailable Obisesan_adekunbi Attending Clinician Unavailable SIXTO UMAÑA Admitting Clinician Unavailable BRIAN Admitting Clinician Unavailable Yan_W Admitting Clinician Unavailable CARLA RAMOS Admitting Clinician Unavailable MD CARLA RAMOS Admitting Clinician Unavailable Obsteff_dottie Admitting Clinician Unavailable Payers Payer Name Policy Type Policy Number Effective Date Expiration Date Thelma radford [place]: [id number] 2020 [employer] 00:00:00 [place] [id number] [place]ICAID[place] Problems Condition Condition Condition Status Onset [...] Added automatic ally from request for surgery [id number] Mass of [place] of Disease Active Overview: Meth santa upper lobe upper lobe 3-[address] of right of right 00:00: g of this [facility] lung lung 00 note l might be different from the original. Added automatic ally from request for surgery [id number] Hyperlipid Hyperlipid Problem Active M [place] emia [...] Stop Date Source Natural father Heart disease [facility] Natural sister Lymphoma [facility] Social History Social Habit Start Date Stop Date Quantity Comments Source History SDOH [facility] al History SDOH [facility] Gender identity [facility] Alcohol intake 2021-04-14 2021-04-14 Lifetime [facility] 00:00:00 00:00:00 non-drinker Hospital (finding) History of Social 2021-04-14 2021-04-[address] function 00:00:00 00:00:00 Hospital Tobacco use and 2021-03-09 2021-03-09 Smokeless [facility] exposure 00:00:00 00:00:00 tobacco non-user Hospital History SDOH 2021-01-13 2021-01-13 1 [facility] Alcohol Frequency 00:00:00 00:00:00 Hospita l History of tobacco 2016-03-09 Cigarette Smoker [facility] use 00:00:00 Hospital Sex Assigned At [birth year] [facility] 00[facility] Hospital Smoking Status Start Date Stop Date Source Former Smoker [facility] Medications Ordered Filled Start Stop Current Ordering Indication Dosage Frequency Signature Comments Components Source Medication Medication Date Date Medication? 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 l tablet metoprolol 0 Yes 50mg Q.5D 50 mg 2 [facility] tartrate 3-02 (two) st (LOPRESSOR) 00:00: times a [facility] 50 mg 00 day. l tablet metoprolol 0 Yes 50mg Q.5D 50 mg 2 [facility] tartrate 3-02 (two) st (LOPRESSOR) 00:00: times a [facility] 50 mg 00 day. l tablet metoprolol 0 Yes 50mg Q.5D 50 mg 2 [facility] tartrate 3-02 (two) st (LOPRESSOR) 00:00: times a [facility] 50 mg 00 day. l tablet metoprolol 0 Yes 50mg Q.5D 50 mg 2 [facility] tartrate 3- (two) st (LOPRESSOR) 00:00: times a [facility] 50 mg 00 day. l tablet metoprolol 2020-0 Yes 50mg Q.5D 50 mg 2 [facility] tartrate 01-04 (two) st (LOPRESSOR) 00:00: times a [facility] 50 mg 00 day. l tablet metoprolol 2020-0 Yes 50mg Q.5D 50 mg 2 [facility] tartrate - (two) st (LOPRESSOR) 00:00: times a [facility] 50 mg 00 day. 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 needed. inhalation route as needed. alprazolam alprazolam No alprazolam [place] 0.5 mg [...] ion Zhanna up inhaler inhaler aerosol inhaler Immunizations Ordered Immunization Filled Immunization Date Status Commen ts Source Name Name pneumococcal pneumococcal 2016-11-05 Completed [place] polysaccharide PPV23 polysaccharide PPV23 00:00:00 [facility] Vital Signs Vital Name Observation Time Observation Value Comments Source BP Diastolic 2022-04-26 00:00:00 90 mm[Hg] [facility] Height 2022-04-26 00:00:00 64 [in_i] [facility] BMI (Body Mass 2022-04-26 00:00:00 35.2 kg/m2 [facility] 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 Medical Index) Group BP Systolic 2022-04-26 00:00:00 169 mm[Hg] [facility] Body Weight 2022-04-26 00:00:00 205 [lb_av] [facility] BP Diastolic 2020-04-15 00:00:00 92 mm[Hg] [facility] Height 2020-04-15 00:00:00 63 [in_i] [facility] BMI (Body Mass 2020-04-15 00:00:00 36.1 kg/m2 [facility] 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 [facility] Index) [facility] Outreach Program BP Systolic 2020-04-15 00:00:00 150 mm[Hg] [facility] Body Weight 2020-04-15 00:00:00 3264 [oz_av] [facility] BP Diastolic 2020-04-07 00:00:00 96 mm[Hg] [facility] Height 2020-04-07 00:00:00 63 [in_i] [facility] BMI (Body Mass 2020-04-07 00:00:00 36.2 kg/m2 [place] 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 [facility] Index) [facility] Out[facility] BP Systolic 2020-04-07 00:00:00 168 mm[Hg] [place] [facility] Body Weight 2020-04-07 00:00:00 3273.6 [oz_av] 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 BP Diastolic 2020-03-10 00:00:00 84 mm[Hg] [place] [facility] Height 2020-03-10 00:00:00 63 [in_i] [place] [facility] BMI (Body Mass 2020-03-10 00:00:00 36.6 kg/m2 [place] 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 Index) [facility] Out[facility] BP Systolic 2020-03-10 00:00:00 186 mm[Hg] [place] [facility] Body Weight 2020-03-10 00:00:00 206.7 [lb_av] [place] [facility] BP Diastolic 2019-12-30 00:00:00 88 mm[Hg] [place] [facility] Height 2019-12-30 00:00:00 63 [in_i] [place] [facility] BMI (Body Mass 2019-12-30 00:00:00 37.5 kg/m2 [place] 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 [facility] Index) [facility] BP Systolic 2019-12-30 00:00:00 160 mm[Hg] [place] [facility] Body Weight 2019-12-30 00:00:00 211.8 [lb_av] [place] [facility] BP Diastolic 2019-09-04 00:00:00 90 mm[Hg] [place] [facility] Height 2019-09-04 00:00:00 63 [in_i] [place] [facility] BMI (Body Mass 2019-09-04 00:00:00 35.4 kg/m2 [place] 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 [facility] Index) [facility] BP Systolic 2019-09-04 00:00:00 160 mm[Hg] [place] [facility] Body Weight 2019-09-04 00:00:00 200.1 [lb_av] [place] [facility] BP Diastolic 2019-07-31 00:00:00 88 mm[Hg] [place] [facility] Height 2019-07-31 00:00:00 63 [in_i] [place] [facility] BMI (Body Mass 2019-07-31 00:00:00 34 kg/m2 [place] 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 [facility] Index) [facility] Outreach [facility] BP Systolic 2019-07-31 00:00:00 152 mm[Hg] [place] [facility] Body Weight 2019-07-31 00:00:00 192 [lb_av] [place] [facility] BP Diastolic 2019-07-24 00:00:00 98 mm[Hg] [place] [facility] Height 2019-07-24 00:00:00 63 [in_i] [place] [facility] BMI (Body Mass 2019-07-24 00:00:00 33.8 kg/m2 [place] 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 [facility] Index) [facility] Outreach [facility] BP Systolic 2019-07-24 00:00:00 170 mm[Hg] [facility] [facility] Body Weight 2019-07-24 00:00:00 190.6 [lb_av] [place] [facility] Procedures Procedure Date / Time Performing Clinician Source Performed PET CT SKULL BASE TO MID 2022-08-03 00:00:00 Provider, Not In [facility] THIGH System XR RIBS 2 VW LEFT 2022-06-05 00:00:00 Provider, Not In [facility] CT CHEST W CONTRAST 2022-06-05 00:00:00 Provider, Not In [facility] XR CHEST 1 VW 2022-05-27 00:00:00 Provider[facility] [id number] 2022-05-27 00:00:00 Provider[facility] ECG 12-LEAD 2022-05-27 00:00:00 Provider[facility] XR CHEST 2 VW 2022-04-17 00:00:00 Provider, [facility] MAMMO, screening, 2020-04-07 00:00:00 [place] [facility], bilateral [facility] ELECTROCARDIOGRAM, 2020-03-10 00:00:00 [place] [facility]PLETE [facility] Bilateral Tubal Ligation [place] [facility] Hysterectomy [place] [facility] Plan of Care Planned Activity Planned Date Details Comments Source Future Scheduled 2023-07-12 [facility] 08:30:43 malignant neoplasm of colon (procedure) [code = 812033956] Future Scheduled 2023-07-12 [facility] 08:30:43 malignant neoplasm of colon (procedure) [code = 456943418] Future Scheduled 2023-07-12 [facility] Test 08:30:43 malignant neoplasm of colon (procedure) [code = 785166643] Future Scheduled 2023-07-12 COVID-19 VACCINE (#1) [facility] Test 08:30:43 [code = COVID-19 VACCINE (#1)] Future Scheduled 2023-07-12 Hepatitis C screening [facility] Test 08:30:43 (procedure) [code = 729959971] Future Scheduled 2023-07-12 BREAST CANCER [facility] Test 08:30:43 SCREENING [code = BREAST CANCER SCREENING] Future Scheduled 2023-07-12 [facility] Test 08:30:43 malignant neoplasm of colon (procedure) [code = 891992044] Future Scheduled 2023-07-12 [facility] Test 08:30:43 malignant neoplasm of colon (procedure) [code = 460110547] Future Scheduled 2023-07-12 SHINGLES [facility]ACCINES ([facility] 08:30:43 of 2) [code = SHINGLES VACCINES (1 of 2)] Future Scheduled 2023-07-12 65+ PNEUMOCOCCAL [facility] Test 08:30:43 VACCINE (2 - PCV) [code = 65+ PNEUMOCOCCAL VACCINE (2 - PCV)] Future Scheduled 2023-07-12 INFLUENZA VACCINE (#1) [facility] Test 08:30:43 [code = INFLUENZA VACCINE (#1)] Future Scheduled 2023-05-18 [facility] Test 15:46:14 malignant neoplasm of colon (procedure) [code = 377710755] Future Scheduled 2023-05-18 [facility] Test 15:46:14 malignant neoplasm of colon (procedure) [code = 621863417] Future Scheduled 2023-05-18 Screening for [facility] Test 15:46:14 malignant neoplasm of colon (procedure) [code = 978295300] Future Scheduled 2023-05-18 COVID-19 VACCINE (#1) [facility] Test 15:46:14 [code = COVID-19 VACCINE (#1)] Future Scheduled 2023-05-18 Hepatitis C screening [facility] Test 15:46:14 (procedure) [code = 882401521] Future Scheduled 2023-05-18 BREAST CANCER [facility] Test 15:46:14 SCREENING [code = BREAST CANCER SCREENING] Future Scheduled 2023-05-18 Screening for [facility] Test 15:46:14 malignant neoplasm of colon (procedure) [code = 197374777] Future Scheduled 2023-05-18 Screening for [facility] Test 15:46:14 malignant neoplasm of colon (procedure) [code = 438515600] Future Scheduled 2023-05-18 SHINGLES VACCINES (1 [facility] Test 15:46:14 of 2) [code = SHINGLES VACCINES (1 of 2)] Future Scheduled 2023-05-18 65+ PNEUMOCOCCAL [facility] Test 15:46:14 VACCINE (2 - PCV) [code = 65+ PNEUMOCOCCAL VACCINE (2 - PCV)] Future Scheduled 2023-05-18 INFLUENZA VACCINE [facility] Test 15:46:14 [code = INFLUENZA VACCINE] Future Scheduled 2023-05-18 Screening for [facility] Test 15:46:14 malignant neoplasm of colon (procedure) [code = 467278557] Future Scheduled 2023-05-18 Screening for [facility] Test 15:46:14 malignant neoplasm of colon (procedure) [code = 993155442] Future Scheduled 2023-05-18 Screening for [facility] Test 15:46:14 malignant neoplasm of colon (procedure) [code = 875773123] Future Scheduled 2023-05-18 COVID-19 VACCINE (#1) [facility] Test 15:46:14 [code = COVID-19 VACCINE (#1)] Future Scheduled 2023-05-18 Hepatitis C screening [facility] Test 15:46:14 (procedure) [code = 346262394] Future Scheduled 2023-05-18 BREAST CANCER [facility] Test 15:46:14 SCREENING [code = BREAST CANCER SCREENING] Future Scheduled 2023-05-18 [facility] Test 15:46:14 malignant neoplasm of colon (procedure) [code = 225208045] Future Scheduled 2023-05-18 [facility] Test 15:46:14 malignant neoplasm of colon (procedure) [code = 941285335] Future Scheduled 2023-05-18 SHINGLES VACCINES (1 [facility] Test 15:46:14 of 2) [code = SHINGLES VACCINES (1 of 2)] Future Scheduled 2023-05-18 65+ [facility]UMOCOCCAL [facility] Test 15:46:14 VACCINE (2 - PCV) [code = 65+ PNEUMOCOCCAL VACCINE (2 - PCV)] Future Scheduled 2023-05-18 INFLUENZA VACCINE [facility] Test 15:46:14 [code = INFLUENZA VACCINE] Future Scheduled 2023-05-18 [facility]:14 malignant neoplasm of colon (procedure) [code = 484924105] Future Scheduled 2023-05-18 Screening for [facility] Test 15:46:14 malignant neoplasm of colon (procedure) [code = 426558236] Future Scheduled 2023-05-18 Screening for [facility] Test 15:46:14 malignant neoplasm of colon (procedure) [code = 151118775] Future Scheduled 2023-05-18 COVID-19 VACCINE (#1) [facility] Test 15:46:14 [code = COVID-19 VACCINE (#1)] Future Scheduled 2023-05-18 Hepatitis C screening [facility] Test 15:46:14 (procedure) [code = 626256846] Future Scheduled 2023-05-18 BREAST CANCER [facility] Test 15:46:14 SCREENING [code = BREAST CANCER SCREENING] Future Scheduled 2023-05-18 [facility] Test 15:46:14 malignant neoplasm of colon (procedure) [code = 393680648] Future Scheduled 2023-05-18 Screening for [facility] Test 15:46:14 malignant neoplasm of colon (procedure) [code = 100643281] Future Scheduled 2023-05-18 SHINGLES VACCINES (1 [facility] Test 15:46:14 of 2) [code = SHINGLES VACCINES (1 of 2)] Future Scheduled 2023-05-18 65+ P[facility]UMOCOCCAL [facility] Test 15:46:14 VACCINE (2 - PCV) [code = 65+ PNEUMOCOCCAL VACCINE (2 - PCV)] Future Scheduled 2023-05-18 INFLUENZA VACCINE [facility] Test 15:46:14 [code = INFLUENZA VACCINE] Future Scheduled 2023-02-07 COVID-19 VACCINE (#1) [facility] Test 13:24:09 [code = COVID-19 VACCINE (#1)] Future Scheduled 2023-02-07 Hepatitis C screening [facility] Test 13:24:09 (procedure) [code = 301373092] Future Scheduled 2023-02-07 [facility]ER [facility] Test 13:24:09 SCREENING [code = BREAST CANCER SCREENING] Future Scheduled 2023-02-07 COLONOSCOPY SCREENING [facility] Test 13:24:09 [code = COLONOSCOPY SCREENING] Future Scheduled 2023-02-07 SHINGLES VACCINES (1 [facility] Test 13:24:09 of 2) [code = SHINGLES VACCINES (1 of 2)] Future Scheduled 2023-02-07 65+ [facility]OCOCCAL [facility] Test 13:24:09 VACCINE (2 - PCV) [code = 65+ PNEUMOCOCCAL VACCINE (2 - PCV)] Future Scheduled 2023-02-07 INFLUENZA VACCINE [facility] Test 13:24:09 [code = INFLUENZA VACCINE] Future Scheduled 2023-02-07 COVID-19 VACCINE (#1) [facility] Test 13:24:09 [code = COVID-19 VACCINE (#1)] Future Scheduled 2023-02-07 Hepatitis C screening [facility] Test 13:24:09 (procedure) [code = 409711560] Future Scheduled 2023-02-07 [facility]CER [facility] Test 13:24:09 SCREENING [code = BREAST CANCER SCREENING] Future Scheduled 2023-02-07 COLONOSCOPY SCREENING [facility] Test 13:24:09 [code = COLONOSCOPY SCREENING] Future Scheduled 2023-02-07 SHINGLES VACCINES (1 [facility] Test 13:24:09 of 2) [code = SHINGLES VACCINES (1 of 2)] Future Scheduled 2023-02-07 65+ [facility]OCOCCAL [facility] Test 13:24:09 VACCINE (2 - PCV) [code = 65+ PNEUMOCOCCAL VACCINE (2 - PCV)] Future Scheduled 2023-02-07 INFLUENZA VACCINE [facility] Test 13:24:09 [code = INFLUENZA VACCINE] Future Scheduled 2022-08-28 HEPATITIS B VACCINES Met [facility] Test 11:53:47 (1 of 3 - 3-dose series) [code = HEPATITIS B VACCINES (1 of 3 - 3-dose series)] Future Scheduled 2022-08-28 COVID-19 VACCINE (#1) [facility] Test 11:53:47 [code = COVID-19 VACCINE (#1)] Future Scheduled 2022-08-28 Hepatitis C screening [facility] Test 11:53:47 (procedure) [code = 088819278] Future Scheduled 2022-08-28 BREAST CANCER [facility] Test 11:53:47 SCREENING [code = BREAST CANCER SCREENING] Future Scheduled 2022-08-28 COLONOSCOPY SCREENING [facility] Test 11:53:47 [code = COLONOSCOPY SCREENING] Future Scheduled 2022-08-28 SHINGLES VACCINES (1 Met [facility] Test 11:53:47 of 2) [code = SHINGLES VACCINES (1 of 2)] Future Scheduled 2022-08-28 65+ [facility] 11:53:47 VACCINE (2 - PCV) [code = 65+ PNEUMOCOCCAL VACCINE (2 - PCV)] Future Scheduled 2022-08-28 INFLUENZA VACCINE [facility] Test 11:53:47 [code = INFLUENZA VACCINE] Encounters Start End Encounter Admission Attending Care Care Encounter Source Date/Time Date/Time Type Type Clinicians Facility Department ID 2023-05-31 2023-06-01 [id number] [place] 11:23:00 15:08:00 SIXTO [id number] d a [facility] 2023-04-05 2023-04-05 emergency [id number] 16:23:00 18:12:00 [id number] 2023-04-05 2023-04-05 Emergency ER [facility] [id number] [place] 16:23:00 18:12:00 JANNET -[id number] Pending sale to [facility] 2023-01-12 2023-01-12 Outpatient ER [facility] D00 [id number] [place] 17:17:00 17:17:00 , ZOHREH -[id number] Pending sale to [facility] 2023-01-08 2023-01-08 Telephone Jose, 1.2.840.1 [id number] Methodi 00:00:00 00:00:[address] 3.430.2.7 Hospit a .3.986647 l .8 2023-01-08 2023-01-08 Telephone Jose, 1.2.840.1 [id number] [facility] 00:00:00 00:00:[address] 3.430.2.7 Hospit a .3.964022 l .8 2022-11-13 2022-11-13 [id number] [place] 00:00:00 00:00:00 CHRISTIAN [id number] [facility] 2022-10-03 2022-10-03 Telephone Jose, 1.2.840.1 [id number] [facility] 00:00:00 00:00:[address] 3.430.2.7 Hospit a .3.492638 l .8 2022-10-03 2022-10-03 Telephone Jose, 1.2.840.1 [id number] [id number] [facility] 00:00:00 00:00:[address] 3.430.2.7 Hospit a .3.881681 l .8 2022-09-27 2022-09-27 Abstract Jose, 1.2.840.1 [id number] [id number] [facility] 00:00:00 00:00:[address] 3.430.2.7 Hospit a .3.398894 l .8 2022-09-27 2022-09-27 Abstract Garcia, 1.2.840.1 [id number] 2100 [id number] [facility] 00:00:00 00:00:[address] 3.430.2.7 Hospit a .3.895478 l .8 2022-08-28 2022-08-28 Orders Provider, 1.2.840.1 [id number] 2100 [id number] [facility] 00:00:00 00:00:00 Only Not In 08172.1.[address] System 3.430.2.7 Hospit a .3.556497 l .8 2022-08-28 2022-08-28 Orders Provider, 1.2.840.1 [id number] 2100 [id number] [facility] 00:00:00 00:00:00 Only Not In 71215.1.[address] System 3.430.2.7 Hospit a .3.081425 l .8 2022-08-24 2022-08-24 Orders Provider, 1.2.840.1 [id number] 2100 [id number] [facility] 00:00:00 00:00:00 Only Not In 36291.1.[address] System 3.430.2.7 Hospit a .3.913353 l .8 2022-08-24 2022-08-24 Orders Provider, 1.2.840.1 [id number] 2100 [id number] [facility] 00:00:00 00:00:00 Only Not In 05399.1.[address] System 3.430.2.7 Hospit a .3.214730 l .8 2022-04-26 2022-04-26 [facility] [id number] [place] 01:52:00 01:52:00 0627 Medical Group 2022-04-26 2022-04-26 Outpatient [facility] [id number] [place] 01:52:00 01:52:00 06 Medical Group 2022-04-26 2022-04-26 [place] Pearson [place] - [id number] [place] 00:00:00 00:00:00 : Allie Scott [facility] [address], [facility], [place]ol [place] [facility] [address] , Ph. 2022-04-17 2022-04-17 Outpatient SHAN RAMIREZ [facility] D00 [id number] [place] 08:58:00 08:58:00 , ZOHREH -[id number] Pending sale to [facility] 2022-03-29 2022-03-29 Outpatient Yan_W MMG MMG [id number] [place] 03:01:00 03:01:00 0621 [facility] 2022-03-29 2022-03-29 Outpatient Yan_W MMG MMG [id number] [place] 03:01:00 03:01:00 0525 [facility] 2021-03-09 2021-03-10 Inpatient RAMOS, [facility] [id number] 40 [place] 00:00:00 00:00:[address] 2021-03-07 2021-03-07 Outpatient RAMOS, [facility] [id number] [place] 00:00:00 00:00:00 EDWARD [address] 2021-03-03 2021-03-03 Outpatient RAMOS, [facility] [id number] [place] 00:00:00 00:00:00 EDWARD [address] 2021-02-03 2021-02-03 Outpatient RAMOS, [facility] [id number] [place] 00:00:00 00:00:00 EDWARD [address] 2021-01-26 2021-01-26 Outpatient RAMOS, [facility] [id number] [place] 00:00:00 00:00:00 EDWARD [address] 2021-01-24 2021-01-24 Outpatient RAMOS, [facility] [id number] [place] 00:00:00 00:00:00 EDWARD [address] 2021-01-24 2021-01-24 Outpatient RAMOS, [facility] [id number] [place] 00:00:00 00:00:00 EDWARD [address] 2021-01-24 2021-01-24 Outpatient RAMOS, [facility] [id number] 114 [place] 00:00:00 00:00:00 EDWARD [address] 2021-01-13 2021-01-13 Outpatient RACHEL, [facility] [id number] [place] 00:00:00 00:00:00 EDWARD [address] 2021-01-13 2021-01-13 Outpatient RACHEL, [facility] [id number] [address] [place] 00:00:00 00:00:00 [address]WARD [address] 2020-04-15 2020-04-15 Outpatient Obisesan_ad [facility]OP [facility] 104 971- [place] 05:21:00 05:21:00 ekunab [id number] [facility] 2020-04-15 2020-04-15 Adekunbi [facility] [place] - [id number] [place] 00:00:00 00:00:00 Amalia Dela Cruz 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 Program 2020-04-07 2020-04-07 Outpatient AMBREEN_FAR [facility] 104 971- [place] 11:07:00 11:07:00 HANA [id number] [facility] 2020-04-07 2020-04-07 Liliana [facility] [place] - [id number] [place] 00:00:00 00:00:00 Amalia Eason MD: [address] [facility] [facility] [address], [place], [place] Outre [address] h , Ph. Program 2020-04-06 2020-04-06 Outpatient AMBREEN_FAR [facility] 104 971- [place] 12:29:00 12:29:00 HANA [id number] [facility] 2020-03-10 2020-03-10 Outpatient AMBREEN_FAR [facility]OP [facility] 104 971- [place] 03:22:00 03:22:00 HANA [id number] [facility] 2020-03-10 2020-03-10 [facility] [place] - [id number] [place] 00:00:00 00:00:00 Amalia Eason MD: [address] [facility] [address], [facility] [address] h , Ph. 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, [facility] [place] Program [address] , Ph. 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 [place] Program [address] , Ph. 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 [place] Program [address] , Ph. 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 [place] [place] Program [address] , Ph. Results Test Description Test Time Test Comments Results Result Comments Source SARS-CoV-2 (COVID-19) RNA [Presence] in Respiratory sp ecimen by 2021-03-07 18:13:31 MANDEEP with probe detection Test Item Value Reference Range Interpretation Comme nts SARS-CoV-2 (COVID-19) RNA [Presence] in Respiratory Not detected No t-Detected specimen by MANDEEP with probe detection (test code = 58596-9) Whether patient is employed in a healthcare setting (test code = 09940-4) Whether the patient has symptoms related to condition of interest (test code = 36993-1) Patient was hospitalized because of this condition (test code = 96327-7) Whether the patient was admitted to intensive care unit (ICU) for condition of interest (test code = 73982-5) Whether patient resides in a congregate care setting (test code = 64541-9) BHUMIKA ASHBYSARS-CoV-2 (COVID-19) RNA [Presence] in Respiratory specimen by MANDEEP with probe [id number] 14:20:13 Test Item Value Reference Range Interpretation Comments SARS-CoV-2 (COVID-19) RNA Not detected Not-Detected [Presence] in Respiratory specimen by MANDEEP with probe detection (test code = 71743-8) BHUMIKA ASHBYBacteria identified in Urine by [id number] 00:00:00 Test Item Value Reference Range Interpretation Comments Bacteria identified in klebsiella pneumoniae A Urine by Culture (test code = 630-4) Other Antibiotic comment [Susceptibility] (test code = 36870-4) [facility] - Serum or [id number] 00:00:00 Test Item Value Reference Range Interpretation Comments Thyrotropin [Units/volume] in 2.100 uIU/mL 0.450-4.500 Serum or Plasma by Detection limit <= 0.005 mIU/L (test code = 59033-4) Thyroxine (T4) free 1.16 NG/dL 0.82-1.77 [Mass/volume] in Serum or Plasma (test code = 3024-7) [facility] 2000 panel - Serum or [id number] 00:00:00 Test Item Value Reference Range Interpretation [...] by Creatinine-based formula (CKD-EPI) (test code = 52484-5) Glomerular filtration 73 mL/min/1.73 >59 rate/1.73 sq M.predicted among blacks [Volume Rate/Area] in Serum, Plasma or Blood by Creatinine-based formula (CKD-EPI) (test code = 38121-8) Urea nitrogen/Creatinine [Mass 17 12-28 Ratio] in [...] mg/dL 8.7-10.3 or Plasma (test code = 41210-0) Protein [Mass/volume] in Serum 7.2 g/dL 6.0-8.5 or Plasma (test code = 2885-2) Albumin [Mass/volume] in Serum 4.6 g/dL 3.8-4.8 or Plasma (test code = 1751-7) Globulin [Mass/volume] in 2.6 g/dL 1.5-4.5 Serum by calculation (test code = 75514-4) Albumin/Globulin [Mass Ratio] 1.8 1.2-2.2 in Serum [...] Serum or Plasma (test code = 1742-6) 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 Hospital[facility]emoglobin A1c/Hemoglobin.total in [id number] 00:00:00 Test Item Value Reference Range Interpretation Comments Hemoglobin A1c/Hemoglobin.total in 5.9 % 4.8-5.6 H Blood (test code = 4548-4) [facility] panel, [id number] 00:00:00 Test Item Value Reference Range Interpretation Comments interpretation (test code = note interpretation) pdf image (test code = pdf image) . [facility]acteria identified in Urine by [id number] 00:00:00 Test Item Value Reference Range Interpretation Comments Bacteria identified in klebsiella pneumoniae A Urine by Culture (test code = 630-4) Other Antibiotic comment [Susceptibility] (test code = 92998-2) [facility] Hospital[facility]K [id number] 13:15:00 Test Item Value Reference Range Interpretation Comments Rate & Rhythm (test code = 61 sinus rhythm Rate & Rhythm) OH Interval (test code = OH 122 Interval) QRS Duration (test code = QRS 91 Duration) QT Interval (test code = QT 421 Interval) [facility] [id number] 13:15:00 Test Item Value Reference Range Interpretation Comments Rate & Rhythm (test code = 61 sinus rhythm Rate & Rhythm) OH Interval (test code = OH 122 Interval) QRS Duration (test code = QRS 91 Duration) QT Interval (test code = QT 421 Interval) [facility] HospitalUrinalysis macro (dipstick) panel - [id number] 12:55:00 Test Item Value Reference Range Interpretation Comments Leukocytes (test code = 3+ Leukocytes) Nitrite (test code = Nitrite) + Urobilinogen (test code = - Urobilinogen) Protein (test code = Protein) 1+ pH (test code = pH) 5.0 Blood (test code = Blood) +- Specific [place] (test code = 1.030 Specific [place]) Ketone (test code = Ketone) - Bilirubin (test code = Bilirubin) - Glucose (test code = Glucose) - Appearance (test code = cloudy Appearance) Color (test code = Color) dark yellow [facility] HospitalBacteria identified in Urine by [id number] 00:00:00 Test Item Value Reference Range Interpretation Comments culture, urine (test specimen number: A code = culture, [id number] urine) [facility]
[2023-07-20 17:24] LABS: Lymphocytes % 21.3 % (15.3-44.8); MCV 90.3 fL (80-100); MPV 10.4 fL (7.6-11.3); Platelets 240 thou/uL (152-406); RBC Red Blood Cell Count 4.32 M/uL (3.86-4.86)
[2023-07-20] MEDS ORDERED: ONDANSETRON 4 MG/2 ML VIAL ONE (17:24)
[2023-07-20] MEDS ORDERED: FAMOTIDINE 20 MG/2 ML VIAL IV ONE (17:27)
[2023-07-20 17:34] LABS: Specific Gravity 1.013 (1.005-1.030); Urine Bilirubin NEGATIVE (Negative); Urine Blood Negative (Negative); Urine Clarity Clear (Clear); Urine Color Light-Yellow (Yellow); Urine Glucose NEGATIVE (Negative); Urine Protein NEGATIVE (Negative); Urine Urobilinogen Normal (Normal); Urine pH 5.5 (5.0-7.0)
[2023-07-20 17:40] LABS: Albumin 3.9 g/dL (3.4-5.0); Bilirubin Total 0.4 mg/dL (0.2-1.0); Potassium 3.9 mEq/L (3.5-5.1); Protein, Total 7.5 g/dL (6.4-8.2)
--- NOTE | 2023-07-20 18:44 | RAD REPORT ---
EXAM DESCRIPTION: CT - Abdomen Pelvis W Contrast - 07/20/2023 6:19 pm CLINICAL HISTORY: Abdominal pain COMPARISON: 2020 TECHNIQUE: Computed axial tomography of the abdomen pelvis was obtained. 100 cc Isovue-300 was admin istered intravenously. Oral contrast was not requested which limits evaluation of bowel and appendix All CT scans are performed using dose optimization technique as appropriate and may include automated exposure control or mA/KV adjustment according to patient size. FINDINGS: The liver, spleen, pancreas, adrenal and left kidney appear unremarkable. 2 centimeter right renal cyst containing a small calcification unchanged likely benign There is no evidence of diverticulitis. Normal appendix 3.5 centimeter right adnexal cyst. No significant free fluid. On 2020 the cyst measured 3 centimeters . Hysterectomy IMPRESSION: Mild enlargement of a 3.5 centimeter right adnexal cyst. No significant free fluid. None mergent pelvic ultrasound recommended
--- NOTE | 2023-07-20 19:06 | ER ---
Nurse's Notes [facility] Name: Porsha Fontana Age: 67 yrs Sex: Female : 1955 Arrival Date: 07/20/2023 Time: 16:37 Bed 11 Private MD: Diagnosis: Abdominal pain, unspecified;Nausea with vomiting, unspecified;Diarrhea, unspecified Presentation: 07/20 16:56 Chief complaint: N/V/D, right sided abdominal pain, and dizziness x 2 days. Sent from [facility] for SBP 210, improved to 160s after clonidine x 1. Coronavirus screen: At this time, the client does not indicate any symptoms associated with coronavirus-19. Ebola Screen: No symptoms or risks identified at this time. Initial Sepsis Screen: Does the patient meet any 2 criteria? No. Patient's initial sepsis screen is negative. Does the patient have a suspected source of infection? No. Patient's initial sepsis screen is negative. Risk Assessment: Do you want to hurt yourself or someone else? Patient reports no desire to harm self or others. Onset of symptoms was July 19, 2023. 16:56 Method Of Arrival: Ambulatory 16:56 Acuity: JEF 3 hb Historical: - Allergies: 16:59 NKDA; hb - PMHx: 16:59 Anxiety; Hypertension; Lung Cancer; Vertigo; hb - PSHx: 16:59 right upper lube lung removal; hb - Immunization history:: Adult Immunizations up to date. - Social history:: Smoking status: Patient denies any tobacco usage or history of. Screenin:49 [facility] ED Fall Risk Assessment (Adult) History of falling in the last 3 months, iw including since admission Score/Fall Risk Level 0 - 2 = Low Risk. Abuse screen: Denies threats or abuse. Denies injuries from another. Nutritional screening: No deficits noted. Tuberculosis screening: No symptoms or risk factors identified. Assessment: 17:45 General: Appears in no apparent distress. Behavior is calm, cooperative. Pain: iw Complains of pain in right lower quadrant and right upper quadrant. Neuro: Level of Consciousness is awake, alert, obeys commands, Oriented to person, place, time, situation, Moves all extremities. Full function. Cardiovascular: Patient's skin is warm and dry. Respiratory: Respiratory effort is even, unlabored, Respiratory pattern is regular, symmetrical. GI: Abd is soft X 4 quads Reports lower abdominal pain. Derm: Skin is intact, is healthy with good turgor. Musculoskeletal: Range of motion: intact in all extremities. 18:29 Reassessment: Patient appears in no apparent distress at this time. Patient and/or iw family updated on plan of care and expected duration. Pain level reassessed. Patient is alert, oriented x 3, equal unlabored respirations, skin warm/dry/pink. Patient denies pain at this time. Patient states feeling better. 19:00 General: Received care of pt from day shift. Pt is resting comfortably, reports feeling kb3 much better, nausea and pain have completely resolved. Vital Signs: 16:56 BP 140 / 97; Pulse 60; Resp 16; Temp 98.8(O); Pulse Ox 98% on R/A; Pain 8/10; hb 18:29 BP 163 / 93; Pulse 74; Resp 16; Temp 98.2; Pulse Ox 100% on R/A; iw 19:20 BP 148 / 84; Pulse 56; Resp 20; Temp 98; Pulse Ox 97% ; Pain 0/10; kb3 16:56 Pain Scale: Adult hb 19:20 Pain Scale: Adult kb3 ED Course: 16:41 Patient arrived in ED. im 16:48 Jose Alfredo Torres DO is Attending Physician. ms3 16:59 Triage completed. hb 16:59 Arm band placed on. hb 17:11 Elise Denise, RN is Primary Nurse. iw 17:15 No provider procedures requiring assistance completed. Initial lab(s) drawn, by me, iw sent to lab. Inserted saline lock: 22 gauge in right antecubital area, using aseptic technique. Blood collected. 18:00 Provided Education on: CT. iw 18:21 CT Abd/Pelvis - IV Contrast Only In Process Unspecified. EDMS 18:29 Patient has correct armband on for positive identification. iw 19:20 IV discontinued, intact, bleeding controlled, No redness/swelling at site. Pressure kb3 dressing applied. Administered Medications: 17:25 Drug: Famotidine IVP 20 mg Route: IVP; Site: right antecubital; iw 19:00 Follow up: Response: No adverse reaction; Pain is decreased kb3 17:25 Drug: Ondansetron IVP 4 mg Route: IVP; Site: right antecubital; iw 19:00 Follow up: Response: No adverse reaction; Nausea is decreased kb3 Medication: 19:59 VIS not applicable for this client. kb3 Outcome: 19:05 Discharge ordered by . ms3 19:20 Discharged to home ambulatory. kb3 19:20 Condition: stable 19:20 Discharge instructions given to patient, Instructed on discharge instructions, follow up and referral plans. medication usage, Demonstrated understanding of instructions, follow-up care, medications, Prescriptions given X 1. 20:01 Patient left the ED. kb3 Signatures: Dispatcher [employer] EDMS Elise Denise, RN RN Aaliyah West, RN RN Jose Alfredo Torres DO DO ms3 Rossi Lopez, RN RN kb3 Sandy Doty
--- NOTE | 2023-07-20 19:06 | EDPHYS ---
Physician Documentation [facility] Name: Porsha Fontana Age: 67 yrs Sex: Female : 1955 Arrival Date: 07/20/2023 Time: 16:37 Bed 11 Private MD: ED Physician Jose Alfredo Torres HPI: 07/20 17:19 This 67 yrs old Female presents to ER via Ambulatory with complaints of Abdominal Pain. ms3 17:19 . 67-year-old female presents for nausea, vomiting, diarrhea, right-sided abdominal ms3 pain for 2 days. Patient states her pain is a 6/10 and described as aching. Patient states that eating makes the pain worse. Patient denies alleviating factors. Patient denies fevers, chills. Historical: - Allergies: 16:59 NKDA; hb - PMHx: 16:59 Anxiety; Hypertension; Lung Cancer; Vertigo; hb - PSHx: 16:59 right upper lube lung removal; hb - Immunization history:: Adult Immunizations up to date. - Social history:: Smoking status: Patient denies any tobacco usage or history of. ROS: 17:19 Constitutional: Negative for fever, and chills. Neck: Negative for injury, pain, and ms3 swelling, Cardiovascular: Negative for chest pain, and palpitations. Respiratory: Negative for shortness of breath, cough, wheezing, and pleuritic chest pain. 17:19 MS/Extremity: Negative for injury and deformity, Skin: Negative for injury, rash, and discoloration. 17:19 Abdomen/GI: Positive for abdominal pain, nausea, vomiting, and diarrhea. 17:19 All other systems are negative. Exam: 17:19 Constitutional: This is a well developed, well nourished patient who is awake, alert, ms3 and in no acute distress. Head/Face: Normocephalic, atraumatic. Neck: Trachea midline, no cervical lymphadenopathy. Supple, full range of motion without nuchal rigidity, or vertebral point tenderness. No Meningismus. Chest/axilla: Normal chest wall appearance and motion. Nontender with no deformity. Cardiovascular: Regular rate and rhythm with a normal S1 and S2. No gallops, murmurs, or rubs. Normal PMI, no JVD. No pulse deficits. Respiratory: Lungs have equal breath sounds bilaterally, clear to auscultation and percussion. No rales, rhonchi or wheezes noted. No increased work of breathing, no retractions or nasal flaring. 17:19 Skin: Warm, dry with normal turgor. Normal color with no rashes, no lesions, and no evidence of cellulitis. MS/ Extremity: Pulses equal, no cyanosis. Neurovascular intact. Full, normal range of motion. 17:19 Abdomen/GI: Inspection: abdomen appears normal, Bowel sounds: normal, Palpation: moderate abdominal tenderness, in the right upper quadrant and right lower quadrant. Vital Signs: 16:56 BP 140 / 97; Pulse 60; Resp 16; Temp 98.8(O); Pulse Ox 98% on R/A; Pain 8/10; hb 18:29 BP 163 / 93; Pulse 74; Resp 16; Temp 98.2; Pulse Ox 100% on R/A; iw 19:20 BP 148 / 84; Pulse 56; Resp 20; Temp 98; Pulse Ox 97% ; Pain 0/10; kb3 16:56 Pain Scale: Adult hb 19:20 Pain Scale: Adult kb3 MDM: 17:03 Patient medically screened. ms3 17:19 Differential diagnosis: appendicitis, bowel obstruction, diverticulitis, non-specific ms3 abd pain. 19:15 Data reviewed: vital signs, nurses notes, lab test result(s), radiologic studies, CT ms3 scan, and as a result, I will discharge patient. Consideration of Admission/Observation Escalation of care including admission/observation considered. CT abdomen negative, labs reassuring.. I considered the following discharge prescriptions or medication management in the emergency department Medications were administered in the Emergency Department. See MAR. Care significantly affected by the following chronic conditions: Hypertension. Counseling: I had a detailed discussion with the patient and/or guardian regarding the historical points, exam findings, and any diagnostic results supporting the discharge/admit diagnosis, lab results, radiology results, the need for outpatient follow up, to return to the emergency department if symptoms worsen or persist or if there are any questions or concerns that arise at home. Response to treatment: the patient's symptoms have markedly improved after treatment, and as a result, I will discharge patient. Special discussion: Based on the patient's Hx, exam, and Dx evaluation, there is no indication for emergent surgery or inpatient Tx. It is understood by the patient/guardian that if the Sx's persist or worsen they need to return immediately for re-evaluation. ED course: On reevaluation patient symptoms improved, patient is alert and orient x4, no apparent distress, nontoxic-appearing, ambulatory number department, speaking full sentences. Discussed labs, CT with patient. Patient to follow-up with her primary care physician in 2 to 3 days. Patient understands agrees plan. All questions were answered. Return precautions discussed include worsening symptoms, or any other concerns.. 07/20 17:03 Order name: CBC with Diff; Complete Time: 18:56 ms3 07/20 17:03 Order name: CMP; Complete Time: 18:56 ms3 07/20 17:03 Order name: Lipase; Complete Time: 18:56 ms3 07/20 17:03 Order name: Urinalysis w/ reflexes ms3 07/20 17:03 Order name: CT Abd/Pelvis - IV Contrast Only; Complete Time: 18:56 ms3 07/20 17:03 Order name: IV Saline Lock; Complete Time: 17:12 ms3 07/20 17:03 Order name: Labs collected and sent; Complete Time: 17:12 ms3 Administered Medications: 17:25 Drug: Famotidine IVP 20 mg Route: IVP; Site: right antecubital; iw 19:00 Follow up: Response: No adverse reaction; Pain is decreased kb3 17:25 Drug: Ondansetron IVP 4 mg Route: IVP; Site: right antecubital; iw 19:00 Follow up: Response: No adverse reaction; Nausea is decreased kb3 Disposition Summary: 07/20/23 19:05 Discharge Ordered Location: Home ms3 Condition: Stable ms3 Diagnosis - Abdominal pain, unspecified ms3 - Nausea with vomiting, unspecified ms3 - Diarrhea, unspecified ms3 Followup: ms3 - With: Private Physician - When: 2 - 3 days - Reason: Recheck today's complaints Discharge Instructions: - Discharge Summary Sheet ms3 - Abdominal Pain, Adult ms3 - Diarrhea, Adult ms3 - Nausea and Vomiting, Adult ms3 Forms: - Medication Reconciliation Form ms3 - Thank You Letter ms3 - Antibiotic Education ms3 - Prescription Opioid Use ms3 - Patient Portal Instructions ms3 - Leadership Thank You Letter ms3 Prescriptions: - ondansetron HCl 4 mg Oral tablet - take 1 tablet by ORAL route every 8 hours for 5 days as needed for nausea and ms3 vomiting; 15 tablet; Refills: 0, Product Selection Permitted Signatures: Dispatcher [employer] Elise Wells RN RN Aaliyah Stanford RN RN Jose Alfredo Bradshaw DO DO ms3 Rossi Lopez RN kb3 Corrections: (The following items were deleted from the chart) 17:20 17:19 This 67 yrs old Female presents to ER via Ambulatory with complaints of High ms3 Blood Pressure, Abdominal Pain. ms3
[2023-07-20 20:47] VITALS: BP 148/84; TEMP 98; O2SAT 97
== END 2023-07-20 20:01 | disposition home or self-care (01) ==
LOC: ER 16:37
DX: R10.31 Right lower quadrant pain (principal); R11.2 Nausea with vomiting, unspecified; R19.7 Diarrhea, unspecified
CPT/HCPCS: 85025; 36415; 81003; 83690; 80053; 74177; 96375; 96374; 99284; Q9967; J2405

== ENCOUNTER → 2023-10-05 | Day surgery (SDC) | payer OTHER ==
[~2023-10-05] MED LIST: Ringers Lactate 1,000 ML IV ONE
[2023-10-05 08:38] LABS: Absolute Lymphocytes (CBC) 1.5 K/uL (0.7-4.9); Hematocrit 42.8 % (36.0-45.0); Lymphocytes % 22.3 % (15.3-44.8); MCV 90.1 fL (80-100); Platelets 291 thou/uL (152-406); RBC Red Blood Cell Count 4.75 M/uL (3.86-4.86)
[2023-10-05 08:49] LABS: Potassium 4.2 mEq/L (3.5-5.1)
[2023-10-05 08:55] LABS: Protime INR 0.98
[2023-10-05 09:55] VITALS: BP 152/90; TEMP 97.4; O2SAT 97
--- NOTE | 2023-10-05 14:45 | EKG ---
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
== END ==
LOC: OR 08:27
PROVIDERS: ATTEND Surgery
DX: Z12.11 Encounter for screening for malignant neoplasm of colon (principal); Z53.8 Procedure and treatment not carried out for other reasons
CPT/HCPCS: 93005; 85025; 80048; 36415; 85610; 85730; J7120

== ENCOUNTER 2023-12-12 09:53 | Day surgery (SDC) | payer OTHER ==
[2023-12-12 09:26] LABS: Absolute Lymphocytes (CBC) 1.7 K/uL (0.7-4.9); Lymphocytes % 24.2 % (15.3-44.8); MCV 89.6 fL (80-100); MPV 10.1 fL (7.6-11.3); Platelets 281 thou/uL (152-406); RBC Red Blood Cell Count 4.47 M/uL (3.86-4.86)
[2023-12-12 09:31] LABS: Protime INR 1.03
[2023-12-12 09:32] LABS: Potassium 3.9 mEq/L (3.5-5.1)
[2023-12-12] MEDS: ONDANSETRON 4 MG/2 ML VIAL IV ONE (13:00)
[2023-12-12 14:16] VITALS: O2SAT 100
[2023-12-12 14:31] VITALS: BP 168/84; TEMP 97.3
== END 2023-12-12 13:30 | disposition home or self-care (01) ==
LOC: OR 09:53
PROVIDERS: ATTEND Surgery
PROC: 0DBL8ZX Excision of Transverse Colon, Via Natural or Artificial Opening Endoscopic, Diagnostic (ICD-10-PCS; 2023-12-12)
PROC: 0DBN8ZX Excision of Sigmoid Colon, Via Natural or Artificial Opening Endoscopic, Diagnostic (ICD-10-PCS; 2023-12-12)
PROC: 0DBM8ZX Excision of Descending Colon, Via Natural or Artificial Opening Endoscopic, Diagnostic (ICD-10-PCS; 2023-12-12)
PROC: 0DBH8ZX Excision of Cecum, Via Natural or Artificial Opening Endoscopic, Diagnostic (ICD-10-PCS; principal; 2023-12-12 12:00)
DX: Z12.11 Encounter for screening for malignant neoplasm of colon (principal); D12.0 Benign neoplasm of cecum; D12.4 Benign neoplasm of descending colon; D12.5 Benign neoplasm of sigmoid colon; D12.3 Benign neoplasm of transverse colon; K64.8 Other hemorrhoids; K57.30 Diverticulosis of large intestine without perforation or abscess without bleeding
CPT/HCPCS: 85025; 80048; 36415; 85610; 88304; 85730; 45385; J2405